=== PATIENT | male | born 1935 | race African-American/Black ===

== ENCOUNTER 2018-08-14 20:16 | Emergency (ER) | payer OTHER ==
--- NOTE | 2018-08-14 21:57 | PDOC ---
History of Present Illness - General Chief Complaint: Tremors Stated Complaint: FELT LIKE HE WAS SHAKING Time Seen by Provider: 08/14/18 20:23 Past History - Past Medical History Allergies/Adverse Reactions: Allergies Allergy/AdvReac Type Severity Reaction Status Date / Time ciprofloxacin [From Cipro] Allergy Verified 08/14/18 20:20 Home Medications: Ambulatory Orders Allopurinol [Zyloprim -] 100 mg PO DAILY 08/14/18 Amlodipine Besylate 10 mg PO DAILY 08/14/18 Furosemide [Lasix] 20 mg PO DAILY 08/14/18 ED Treatment Course - RADIOLOGY Radiology Studies Ordered: Category Date Time Status HEAD CT WITHOUT CONTRAST [CT] Stat CT Scan 08/14/18 20:46 Completed *DC/Admit/Observation/Transfer Diagnosis at time of Disposition: History of tremor - Discharge Dispostion Disposition: HOME Condition at time of disposition: Stable - Referrals Referrals: Chidi Jimenez DO [Staff Physician] - 1 week - Patient Instructions Printed Discharge Instructions: DI for Peripheral Neuropathy Additional Instructions: Continue medication as prescribed Follow-up with neurologist ( group) within 1 week Follow-up with your primary care practitioner; call tomorrow and arrange for follow-up within the next 48 hours Return to ER if you have any persistent tremor/weakness/numbness in arm - Post Discharge Activity
[2018-08-14 22:26] VITALS: BP 187/94; PULSE 80; TEMP 97.8; BMI 22.8
--- NOTE | 2018-08-15 06:32 | PDOC ---
Documentation entered by Jacinta Locke SCRIBE, acting as scribe for Alma Vazquez MD. Alma Vazquez MD: This documentation has been prepared by the Chucky gold Xhesika, SCRIBE, under my direction and personally reviewed by me in its entirety. I confirm that the documentation accurately reflects all work, treatment, procedures, and medical decision making performed by me. History of Present Illness - General Chief Complaint: Tremors Stated Complaint: FELT LIKE HE WAS SHAKING Time Seen by Provider: 08/14/18 20:23 History Source: Patient Exam Limitations: No Limitations - History of Present Illness Initial Comments: 08/14/18 22:24 The patient is a 83 year old male, with a significant past medical history of HTN (compliant with medication) who presents to the emergency department with tremors since this afternoon. The patient states he was sitting down watching tv , fell asleep and when he woke up he felt his R hand trembling for a minute before self resolving. The patient states he went to urgent care and was told to come to the ED for a head CT. The patient denies numbness or pain to his R arm. The patient denies any other extremity problems, vision changes, balance changes, facial drooping or slurred speech. The patient denies chest pain, shortness of breath, headache or dizziness. The patient denies fever, chills, nausea, vomit, diarrhea or constipation. The patient denies dysuria, frequency, urgency or hematuria. Allergies:NKDA Past surgical history:None reported Social history: None reported Past History - Past Medical History Allergies/Adverse Reactions: Allergies Allergy/AdvReac Type Severity Reaction Status Date / Time ciprofloxacin [From Cipro] Allergy Verified 08/14/18 20:20 Home Medications: Ambulatory Orders Allopurinol [Zyloprim -] 100 mg PO DAILY 08/14/18 Amlodipine Besylate 10 mg PO DAILY 08/14/18 Furosemide [Lasix] 20 mg PO DAILY 08/14/18 Review of Systems - Review of Systems Able to Perform ROS?: Yes Comments:: 08/14/18 22:25 GENERAL/CONSTITUTIONAL: No fever or chills. No weakness. HEAD, EYES, EARS, NOSE AND THROAT: No change in vision. No ear pain or discharge. No sore throat. CARDIOVASCULAR: No chest pain or shortness of breath. RESPIRATORY: No cough, wheezing, or hemoptysis. GASTROINTESTINAL: No nausea, vomiting, diarrhea or constipation. GENITOURINARY: No dysuria, frequency, or change in urination. MUSCULOSKELETAL:(+) R hand tremors. No joint or muscle swelling or pain. No neck or back pain. SKIN: No rash NEUROLOGIC: No headache, vertigo, loss of consciousness, or change in strength/ sensation. ENDOCRINE: No increased thirst. No abnormal weight change. HEMATOLOGIC/LYMPHATIC: No anemia, easy bleeding, or history of blood clots. ALLERGIC/IMMUNOLOGIC: No hives or skin allergy. *Physical Exam - Physical Exam Comments: 08/14/18 22:25 GENERAL: Awake, alert, and fully oriented, in no acute distress HEAD: No signs of trauma EYES: PERRLA, EOMI, sclera anicteric, conjunctiva clear ENT: Auricles normal inspection, hearing grossly normal, nares patent, oropharynx clear without exudates. Moist mucosa NECK: Normal ROM, supple, no lymphadenopathy, JVD, or masses LUNGS: Breath sounds equal, clear to auscultation bilaterally. No wheezes, and no crackles HEART: Regular rate and rhythm, normal S1 and S2, no murmurs, rubs or gallops ABDOMEN: Soft, nontender, normoactive bowel sounds. No guarding, no rebound. No masses EXTREMITIES: (+) minimal past pointing on finger to nose with right upper extremity normal on L. (+) rapid alternating movement, normal on both hands. Remainder of neurological exam was normal. Normal range of motion, no edema. No clubbing or cyanosis. No cords, erythema, or tenderness NEUROLOGICAL: Cranial nerves II through XII grossly intact. Normal speech, normal gait Medical Decision Making - Medical Decision Making As noted above, this 83-year-old man with a history of hypertension and was referred here from urgent care where he was seen after a brief episode of right upper extremity tremor, apparently occurring after the patient awakened from a nap on his couch earlier today. He had no other symptoms and tremor resolved completely after a few minutes. Patient has no complaints currently. Exam, as noted above was essentially normal except for very subtle difference in coordination of the right arm as opposed to the left arm. Noncontrast head CT was without evidence of acute pathology Results discussed with the patient. He will continue to take his antihypertensive medication and follow-up with his primary care practitioner. I suggested that he also follow-up with neurology and the patient was eager to do this. Referral information for Dr. Barbara henriquez was given to the patient. He should also return to the emergency room if he develops any persistent unusual motor activity/difficulty with speaking/facial or motor weakness/ balance or gait difficulties. *DC/Admit/Observation/Transfer Diagnosis at time of Disposition: History of tremor - Discharge Dispostion Disposition: HOME Condition at time of disposition: Stable - Referrals Referrals: Chidi Jimenez DO [Staff Physician] - 1 week - Patient Instructions Printed Discharge Instructions: DI for Peripheral Neuropathy Additional Instructions: Continue medication as prescribed Follow-up with neurologist (Dr.Gulati henriquez) within 1 week Follow-up with your primary care practitioner; call tomorrow and arrange for follow-up within the next 48 hours Return to ER if you have any persistent tremor/weakness/numbness in arm - Post Discharge Activity
== END 2018-08-14 22:30 | disposition home or self-care (01) ==
LOC: FER 20:16
DX: R25.1 Tremor, unspecified (principal)
CPT/HCPCS: 70450-TC; 99281-25

== ENCOUNTER 2019-12-15 21:47 | Inpatient (IN) | payer OTHER, BC ==
--- NOTE | 2019-12-15 22:23 | PDOC ---
History of Present Illness - General Chief Complaint: Loss of Appetite Stated Complaint: LOSS OF APPETITE Time Seen by Provider: 12/15/19 22:10 History Source: Patient, Spouse Exam Limitations: No Limitations - History of Present Illness Initial Comments: 12/15/19 22:23 84yM w PMHx HTN presenting w 2wk reduced PO appetite, 15lb weight loss, confusion, generalized weakness. At baseline, pt is AOx3, doesn't need help with activities of daily living per . Pt denies fever, cough, n/v, chest pain, SOB, ABD pain, urinary/bowel mvmt changes. Past History - Medical History Allergies/Adverse Reactions: Allergies Allergy/AdvReac Type Severity Reaction Status Date / Time ciprofloxacin [From Cipro] Allergy Verified 08/14/18 20:20 Home Medications: Ambulatory Orders Allopurinol [Zyloprim -] 100 mg PO DAILY 08/14/18 Amlodipine Besylate 10 mg PO DAILY 08/14/18 Hydrochlorothiazide [Hctz -] 25 mg PO DAILY 12/15/19 Sulfamethoxazole/Trimethoprim [Sulfamethoxazole-Tmp Ds Tablet] 1 each PO BID 12/15/19 Tamsulosin HCl 0.4 mg PO DAILY 12/15/19 COPD: No HTN: Yes Other medical history: gout - Psycho-Social/Smoking History Smoking History: Never smoked Have you smoked in the past 12 months: No - Substance Abuse Hx (Audit-C & DAST Scrn) How often the patient has a drink containing alcohol: Never Score: In Men: 4 or > Positive; In Women: 3 or > Positive: 0 Screen Result (Pos requires Nsg. Audit-10AR): Negative In the last yr the pt used illegal drug/Rx for NonMed reason: No Score: Yes response is considered Positive: 0 Screen Result (Positive result requires Nsg. DAST-10): Negative Review of Systems - Review of Systems Constitutional: Yes: Loss of Appetite, Unintentional Wgt. Loss. No: Chills, Fever HEENTM: No: Eye Pain, Nose Congestion Respiratory: No: Cough, Shortness of Breath Cardiac (ROS): No: Chest Pain, Palpitations ABD/GI: No: Constipated, Diarrhea, Nausea, Vomiting : No: Burning, Dysuria Musculoskeletal: No: Back Pain, Joint Pain Integumentary: No: Bruising, Flushing Neurological: No: Headache, Seizure Psychiatric: No: Anxiety, Depression Endocrine: No: Intolerance to Cold, Intolerance to Heat Hematologic/Lymphatic: No: Anemia, Blood Clots *Physical Exam - Vital Signs Last Vital Signs Temp Pulse Resp BP Pulse Ox 98.9 F 109 H 19 147/66 99 12/15/19 21:51 12/15/19 21:51 12/15/19 21:51 12/15/19 21:51 12/15/19 21:51 - Physical Exam General Appearance: Yes: Nourished, Appropriately Dressed. No: Apparent Distress HEENT: positive: EOMI, TABITHA, Normal Voice, Hearing Grossly Normal. negative: Scleral Icterus (R), Scleral Icterus (L) Respiratory/Chest: positive: Lungs Clear, Normal Breath Sounds. negative: Chest Tender, Respiratory Distress, Crackles, Rales, Rhonchi, Stridor, Wheezing Cardiovascular: positive: Regular Rhythm, Regular Rate, S1, S2, Systolic Murmur Gastrointestinal/Abdominal: positive: Normal Bowel Sounds, Soft, Distended (mild). negative: Tender, Guarding, Rebound Musculoskeletal: negative: CVA Tenderness (R), CVA Tenderness (L) Extremity: positive: Delayed Capillary Refill. negative: Pedal Edema Integumentary: positive: Normal Color, Dry, Warm. 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 negative: Fully Oriented (AOx1 not to time or place), Facial Droop, Numbness ED Treatment Course - LABORATORY CBC & Chemistry Diagram: 12/15/19 22:50 12/15/19 22:50 Medical Decision Making - Medical Decision Making 12/15/19 22:58 EKG - sinus tachy w PACs, HR 103, QTc 476, no ST changes CXR - clear lung cohn Head CT - limited exam excludes brain near vertex, no acute hemorrhage/infarct/mass, mild volume loss WBC 14 w L shift, Cr 6.4, ALT 160, AST 100 --- 84yM w PMHx HTN presenting w 2wk reduced PO appetite, 15lb weight loss, confusion, generalized weakness. PNA vs UTI vs atypical ACS vs metabolic. Low concern for CVA (no focal neuro deficits) vs PNA (clear lungs) Has UTI, prerenal KARLO w BUN 106/Cr 6.4 w normal K, no ST changes No acute hemorrhage/infarct/mass on CT. Vitals normal, not in distress, abd non tender Given 2L fluids, rocephin Admitted m/s hospitalist for KARLO, dehydration requiring IV fluids, UTI, AMS PCP - Mónica Lee CONTINGENTS SUPERVISOR Discharge - Discharge Information Problems reviewed: Yes Clinical Impression/Diagnosis: KARLO (acute kidney injury), Dehydration UTI (urinary tract infection) Qualifiers: Urinary tract infection type: acute cystitis Hematuria presence: without hematuria Qualified Code(s): N30.00 - Acute cystitis without hematuria AMS (altered mental status) Qualifiers: Altered mental status type: disorientation Qualified Code(s): R41.0 - Disorientation, unspecified Condition: Stable - Follow up/Referral - Patient Discharge Instructions - Post Discharge Activity
[2019-12-15] MEDS ORDERED: SODIUM CHLORIDE 0.9% 500 ML INFUS.BAG IV ONE (22:48)
[2019-12-15 23:01] LABS: BASO % 0.5 % (0-2.0); EOS % 0.3 % (0-4.5); HEMATOCRIT 37.7 % (35.4-49); HEMOGLOBIN 12.7 GM/dL (11.7-16.9); LYMPH % 3.7 % (8-40); MCH 33.4 pg (25.7-33.7); MCHC 33.8 g/dl (32.0-35.9); MEAN CELL VOLUME 98.9 fl (80-96); MEAN PLT VOLUME 7.6 fl (7.5-11.1); MONO % 9.6 % (3.8-10.2); NEUT % 85.9 % (42.8-82.8); PLATELET COUNT 534 K/MM3 (134-434); RBC 3.81 M/mm3 (4.00-5.60); RDW 13.7 % (11.9-15.9); WHITE BLOOD COUNT 14.6 K/mm3 (4.0-10.0)
[2019-12-15 23:38] LABS: ALBUMIN 3.2 g/dl (3.4-5.0); BILIRUBIN,TOTAL 0.8 mg/dL (0.2-1); CALCIUM 8.9 mg/dL (8.5-10.1); CREATININE 6.4 mg/dL (0.55-1.3); MAGNESIUM 2.7 mg/dL (1.8-2.4); PHOSPHOROUS 3.5 mg/dL (2.5-4.9); POTASSIUM 3.9 mmol/L (3.5-5.1); TOT PROT 8.6 g/dl (6.4-8.2)
[2019-12-15 23:40] LABS: BLOOD UREA NITROGEN 106.9 mg/dL (7-18)
[2019-12-16] MEDS ORDERED: LACTATED RINGERS SOLUTION 1000 ML INFUS.BAG IV ONE (00:43)
[2019-12-16 01:21] LABS: EPI CELLS 4 /uL (0-25.1); HYALINE CASTS 1 /uL (0-3.1); PH,URINE 5.5 (5.0-8.0); URINE APPEARANCE TURBID; URINE BACTERIA 3845 /uL (0-1359); URINE BILIRUBIN NEGATIVE (NEGATIVE); URINE COLOR YELLOW; URINE GLUCOSE (UA) NEGATIVE (NEGATIVE); URINE KETONE NEGATIVE (NEGATIVE); URINE LEUK ESTERASE 3+ (NEGATIVE); URINE NITRITE POSITIVE (NEGATIVE); URINE PROTEIN TRACE (NEGATIVE); URINE RBC 81 /uL (0-23.9); URINE UROBILINOGEN 0.2 mg/dL (0.2-1.0); URINE WBC 9551 /uL (0-25.8)
[2019-12-16] MEDS ORDERED: CEFTRIAXONE 1 GM in DEXTROSE 5%-WATER - 100 ML IVPB ONE (01:49)
[2019-12-16] MEDS ORDERED: CEFTRIAXONE 1 GM/50 ML BAG ONE (03:21)
--- NOTE | 2019-12-16 03:25 | PDOC ---
*Physical Exam - Vital Signs Last Vital Signs Temp Pulse Resp BP Pulse Ox 98.9 F 109 H 19 147/66 99 12/15/19 21:51 12/15/19 21:51 12/15/19 21:51 12/15/19 21:51 12/15/19 21:51 ED Treatment Course - LABORATORY CBC & Chemistry Diagram: 12/26/19 07:20 12/26/19 07:20 - ADDITIONAL ORDERS Additional order review: Laboratory Results 12/16/19 12/15/19 00:45 22:50 Sodium 132 L Potassium 3.9 Chloride 98 Carbon Dioxide 19 L Anion Gap 15 BUN 106.9 H* Creatinine 6.4 H Est GFR (CKD-EPI)AfAm 8.39 Est GFR (CKD-EPI)NonAf 7.24 Random Glucose 120 H Calcium 8.9 Phosphorus 3.5 Magnesium 2.7 H Total Bilirubin 0.8 AST 108 H ALT 161 H Alkaline Phosphatase 89 Troponin I 0.03 Total Protein 8.6 H Albumin 3.2 L TSH 2.63 Urine Color Yellow Urine Appearance Turbid Urine pH 5.5 Ur Specific Hamer 1.014 Urine Protein Trace Urine Glucose (UA) Negative Urine Ketones Negative Urine Blood 2+ H Urine Nitrite Positive H Urine Bilirubin Negative Urine Urobilinogen 0.2 Ur Leukocyte Esterase 3+ H Urine WBC (Auto) 9551 Urine RBC (Auto) 81 Urine Casts (Auto) 1 U Epithel Cells (Auto) 4 Urine Bacteria (Auto) 3845 12/15/19 22:50 RBC 3.81 L MCV 98.9 H MCHC 33.8 RDW 13.7 MPV 7.6 Neutrophils % 85.9 H Lymphocytes % 3.7 L Monocytes % 9.6 Eosinophils % 0.3 Basophils % 0.5 - Medications Given in the ED: ED Medications Discontinued Medications Generic Name Dose Route Start Last Admin Trade Name Freq PRN Reason Stop Dose Admin Lactated Ringer's 1,000 ml 12/16/19 00:43 12/16/19 01:32 Lactated Ringers Solution IV 12/16/19 00:44 1,000 ml ONCE ONE Administration Sodium Chloride 1,000 ml 12/15/19 22:48 12/15/19 23:28 Normal Saline - IV 12/15/19 22:49 1,000 ml ONCE ONE Administration Medical Decision Making - Medical Decision Making 12/16/19 03:24 Patient Name: JR DEVINE THIS IS A PRELIMINARY REPORT DATE OF SERVICE: 2019-12-16 02:02:37 IMAGES: 296 EXAM: HEAD CT WITHOUT CONTRAST HISTORY: 84-year-old male 2 weeks of confusion weakness assess for a cerebrovascular accident COMPARISON: None. FINDINGS: Limited nondiagnostic exam excludes the brain near the vertex. No acute intracranial hemorrhage mass effect or midline shift on the images within the [id number]. The ventricles sulci and basilar cisterns are mildly prominent consistent with mild central volume loss. Mild nonspecific periventricular predominant low density throughout the deep white matter is most likely due to mild small vessel ischemic white matter disease. Mild mineralization of the bilateral basal ganglia. Cannot exclude an acute stroke. Calcified arteriosclerosis of the cavernous carotids noted. The sinuses and mastoid air cells are clear within the [id number]. The calvarium is intact. IMPRESSION Limited nondiagnostic exam excludes the brain near the vertex. If clinically indicated routine outpatient CT head without motion artifact may be needed. No acute intracranial hemorrhage mass effect or midline shift on the images within the [id number]. The ventricles sulci and basilar cisterns are mildly prominent consistent with mild central volume loss. Mild nonspecific periventricular predominant low density throughout the deep white matter is most likely due to mild small vessel ischemic white matter disease. Mild mineraliza tion of the bilateral basal ganglia. Cannot exclude an acute stroke. If there is a clinical concern for an acute stroke then follow-up with CT angiography of the head with IV contrast may be needed. Calcified arteriosclerosis of the cavernous carotids noted. Discharge - Discharge Information Problems reviewed: Yes Clinical Impression/Diagnosis: KARLO (acute kidney injury), Dehydration UTI (urinary tract infection) Qualifiers: Urinary tract infection type: acute cystitis Hematuria presence: without he maturia Qualified Code(s): N30.00 - Acute cystitis without hematuria AMS (altered mental status) Qualifiers: Altered mental status type: disorientation Qualified Code(s): R41.0 - Disorientation, unspecified Condition: Stable - Follow up/Referral - Patient Discharge Instructions - Post Discharge Activity
--- NOTE | 2019-12-16 04:39 | PN ---
Teaching Attending Note Name of Resident: Kira Sotelo ATTENDING PHYSICIAN STATEMENT I saw and evaluated the patient. I reviewed the resident's note and discussed the case with the resident. I agree with the resident's findings and plan as documented. SUBJECTIVE: Patient is an 84 year old man with a PMH of Gout and Hypertension brought in by his to the ER for 2 weeks of worsening altered mental status, confusion, decreased PO intake, 15 lbs weight loss and difficulty ambulating. His provided most of the information because of his altered mentation. Patient offers no specific complaints. says that at baseline, patient is alert and oriented x3, and doesn't need help with activities of daily living per . Patient went to an Urgent care center 9 days ago for urinary frequency/urgency and was prescribed Bactrim DS bid and Flomax. There is no reported chest pain, shortness of breath, abdominal pain, headache, palpitations, fever, chills, nausea, vomiting, diarrhea, constipation, dysuria, frequency, urgency, melena, hematochezia or hematuria. No reported history of alcohol, tobacco or illicit drug use. No sick contacts or recent travels. Family history is unremarkable. OBJECTIVE: Alert Vital Signs Period Temp Pulse Resp BP Sys/Odell Pulse Ox Last 24 Hr 98.9 F 109 19 147/66 99 HEENT: No Jaundice, eye redness or discharge, PERRLA, EOMI. Normocephalic, atraumatic. External ears are normal and hearing is grossly intact. No nasal discharge. Neck: Supple, nontender. No palpable adenopathy or thyromegaly. No JVD Chest: Good effort. Clear to auscultation and percussion. Heart: Regular. No S3, rub or murmur Abdomen: Not distended, soft, nontender and no HSM. No rebound or guarding. Nor mal bowel sounds. Ext: Peripheral pulses intact. No leg edema. Skin: Warm and dry. No petechiae, rash or ecchymosis. Neuro: Alert. Oriented to person. CN 2-12 grossly intact. Sensation grossly intact in all four extremities and DTR are symmetric. Psych: Appropriate mood and affect. Good insight. Home Medications Medication Instructions Recorded Allopurinol [Zyloprim -] 100 mg PO DAILY 08/14/18 Amlodipine Besylate 10 mg PO DAILY 08/14/18 Hydrochlorothiazide [Hctz -] 25 mg PO DAILY 12/15/19 Sulfamethoxazole/Trimethoprim 1 each PO BID 12/15/19 [Sulfamethoxazole-Tmp Ds Tablet] Tamsulosin HCl 0.4 mg PO DAILY 12/15/19 Abnormal Lab Results 12/15/19 12/15/19 12/16/19 22:50 22:50 00:45 WBC 14.6 H RBC 3.81 L MCV 98.9 H Plt Count 534 H Absolute Neuts (auto) 12.6 H Neutrophils % 85.9 H Lymphocytes % 3.7 L Sodium 132 L Carbon Dioxide 19 L BUN 106.9 H* Creatinine 6.4 H Random Glucose 120 H Magnesium 2.7 H AST 108 H ALT 161 H Total Protein 8.6 H Albumin 3.2 L Urine Blood 2+ H Urine Nitrite Positive H Ur Leukocyte Esterase 3+ H Current Medications Generic Name Dose Route Start Last Admin Trade Name Freq PRN Reason Stop Dose Admin Amlodipine Besylate 10 mg 12/16/19 10:00 Norvasc - PO DAILY [facility] Heparin Sodium (Porcine) 5,000 unit 12/16/19 06:00 Heparin - SQ TID [facility] Hydrochlorothiazide 25 mg 12/16/19 10:00 Hctz - PO DAILY [facility] Sodium Chloride 1,000 mls @ 75 mls/hr 12/16/19 05:30 12/16/19 06:01 Normal Saline - IV 75 mls/hr ASDIR [facility] Administration Ceftriaxone Sodium 2,000 mg/ 50 mls @ 100 mls/hr 12/17/19 05:00 Dextrose IVPB DAILY [facility] Tamsulosin HCl 0.4 mg 12/16/19 08:30 Flomax - PO DAILY@0830 [facility] ASSESSMENT AND PLAN: 1. Sepsis due to UTI/Toxic metabolic encephalopathy - Altered mentation likely due to toxic metabolic encephalopathy caused by UTI. No evidence of acute intracranial pathology on noncontrast head CT scan though it is reported as suboptimal study. CXR shows calcified aortic knob with no evidence of acute lung disease. EKG shows sinus tachycardia at 103/minute, PACs, LAD and QTc [address]-T wave changes. Initial troponin is negative. Will avoid drugs that may prolong QTc. Transaminitis may be due to sepsis - will get upper abdominal sonogram and trend. Sepsis workup done. Will continue IV Ceftriaxone, keep him NPO, give IV NS, get carotid doppler, brain MRI if AMS persists, do speech and swallow evaluation, neurochecks and implement fall/aspiration/seizure precautions. Consult ID/Neurology. Viral testing for COVID-19 ordered and patient placed on airborne, droplet and contact isolation. Hyponatremia likely partly due to hyperglycemia and ?KARLO. Will limit free water intake and correct hyperglycemia. Will continue comprehensive care for all of patients comorbid conditions. 2. KARLO? May be due to Bactrim toxicity. Will get kidney/bladder sonogram stat, uric acid level, phosphate, PSA, hydrate gently, monitor urine output and con sult Nephrology. Avoid nephrotoxic agents such as NSAIDS, aminoglycosides, contrast dyes and certain Alternative medicine products. 3. Hypoalbuminemia - Possibly due to combined effects of malnutrition and inflammation associated with comorbid conditions. Will ensure adequate dietary protein intake and also consult youth officer. Urinalysis pending. 4. Hypertension Will restart suitable outpatient antihypertensive drugs when clinically appropriate. Subsequently, will revise regimen to ensure [id number] excellent BP control. Patient counseled on the injurious effects of uncontrolled hypertension. Nonpharmacologic measures to control hypertension like weight loss, salt restriction and exercise stressed. Importance of adherence to treatment regimen and attainment of normotension emphasized. 5. DVT prophylaxis - Heparin 5000u sq tid. 6. Advance directives - Full code.
--- NOTE | 2019-12-16 05:26 | HP ---
CHIEF COMPLAINT: Constipation and altered mental status of 2 weeks Historian: PCP: Mónica Lee HISTORY OF PRESENT ILLNESS: 84 Year old Male with a history of hypertension brought in by for 2 weeks of worsening altered mental status, confusion, decreased PO intake, 15 lbs we ight loss, difficulty ambulating. His is the primary historian who denies nausea, vomiting, chest pain. Confusion was of gradual onset. The believes he seems to be getting better. There is associated urinary frequency, urgency and reduced apppetite and 15 Ibs unexplained weight losss but no dysuria, hematuria, fever, chills, nausea, vomiting or diarrhea. No Chest pain, sob, wheezing, LOC, seizures, hematemesis, hematochezia or melena stool. Patient was treated at urgent care 9 days ago for urinary frequency and urgency with bactrim and flomax. ER course was notable for: (1)N/S (2)Heparin (3) Recent Travel:None PAST SURGICAL HISTORY: Social History: Smoking:None Alcohol:None Drugs: None Allergies: ciprofloxacin. None to food or latex HOME MEDICATIONS: Home Medications Medication Instructions Recorded Allopurinol [Zyloprim -] 100 mg PO DAILY 08/14/18 Amlodipine Besylate 10 mg PO DAILY 08/14/18 Hydrochlorothiazide [Hctz -] 25 mg PO DAILY 12/15/19 Tamsulosin HCl 0.4 mg PO DAILY 12/15/19 REVIEW OF SYSTEMS Negative except as above Vital Signs - 24 hr 12/15/19 21:51 Temperature 98.9 F Pulse Rate 109 H Respiratory 19 Rate Blood Pressure 147/66 O2 Sat by Pulse 99 Oximetry (%) PHYSICAL EXAMINATION GENERAL: Awake, alert, and Ox1, in no acute distress. HEAD: Normal with no signs of trauma. EYES: Sclera anicteric, conjunctiva clear. No lid lag. NECK: Supple without lymphadenopathy, JVD, or masses. LUNGS: Breath sounds equal, clear to auscultation bilaterally. No wheezes, and no crackles. No accessory muscle use. HEART: Regular rate and rhythm, normal S1 and S2 without murmur, rub or gallop. ABDOMEN: Soft, nontender, not distended, normoactive bowel sounds, no guarding, no rebound, no masses. No hepatomegaly or splenomegaly. STAR: Normal anal tone, no tenderness or prostatic enlargement MUSCULOSKELETAL: Normal range of motion at all joints. No bony deformities or tenderness. No CVA tenderness. UPPER EXTREMITIES: 2+ pulses, warm, well-perfused. No cyanosis. No clubbing. No peripheral edema. LOWER EXTREMITIES: 2+ pulses, warm, well-perfused. No calf tenderness. No peripheral edema. NEUROLOGICAL: Alert, ox1 PSYCHIATRIC: Cooperative. Good eye contact. Appropriate mood and affect. SKIN: Warm, dry Laboratory Results - last 24 hr 12/15/19 12/15/19 12/16/19 22:50 22:50 00:45 WBC 14.6 H RBC 3.81 L Hgb 12.7 Hct 37.7 MCV 98.9 H MCH 33.4 MCHC 33.8 RDW 13.7 Plt Count 534 H MPV 7.6 Absolute Neuts (auto) 12.6 H Neutrophils % 85.9 H Lymphocytes % 3.7 L Monocytes % 9.6 Eosinophils % 0.3 Basophils % 0.5 Nucleated RBC % 0 Sodium 132 L Potassium 3.9 Chloride 98 Carbon Dioxide 19 L Anion Gap 15 BUN 106.9 H* Creatinine 6.4 H Est GFR (CKD-EPI)AfAm 8.39 Est GFR (CKD-EPI)NonAf 7.24 Random Glucose 120 H Calcium 8.9 Phosphorus 3.5 Magnesium 2.7 H Total Bilirubin 0.8 AST 108 H ALT 161 H Alkaline Phosphatase 89 Troponin I 0.03 Total Protein 8.6 H Albumin 3.2 L TSH 2.63 Urine Color Yellow Urine Appearance Turbid Urine pH 5.5 Ur Specific [place] 1.014 Urine Protein Trace Urine Glucose (UA) Negative Urine Ketones Negative Urine Blood 2+ H Urine Nitrite Positive H Urine Bilirubin Negative Urine Urobilinogen 0.2 Ur Leukocyte Esterase 3+ H Urine WBC (Auto) 9551 Urine RBC (Auto) 81 Urine Casts (Auto) 1 U Epithel Cells (Auto) 4 Urine Bacteria (Auto) 3845 ASSESSMENT/PLAN: 84 Year old Male with a history of hypertension brought in by for 2 weeks of worsening altered mental status, confusion, decreased PO intake, 15 lbs weight loss, difficulty ambulating x 2 weeks #SEPSIS 2/2 TO ACUTE COMPLICATED CYSTITIS: -UA is suggestive of UTI -Hx of urinary frequency and urgency + -Altered mentation likely due to toxic metabolic encephalopathy caused by UTI. -No evidence of acute intracranial pathology on noncontrast head CT scan though it is reported as suboptimal study. -CXR shows calcified aortic knob with no evidence of acute lung disease. -EKG shows sinus tachycardia at 103/minute, PACs, LAD and QTc [address]-T wave changes. -Initial troponin is negative. -Avoid QTc prolonging meds. #TRANSAMINITIS: -Transaminitis likely due to sepsis - will get upper abdominal sonogram and trend. -Sepsis workup done -Continue IV Ceftriaxone, keep him NPO -IV N/S -AM team to consider Carotid doppler, brain MRI if AMS persists -Speech and swallow evaluation -Neurochecks and implement fall/aspiration/seizure precautions. -Consult ID/Neurology. -Viral testing for COVID-19 ordered and patient placed on airborne, droplet and contact isolation. -Hyponatremia likely partly due to hyperglycemia and ?KARLO. -Limit free water intake and correct hyperglycemia. #KARLO: -May be 2/2 Bactrim toxicity. Bactrim was given 9days ago -Kidney/bladder sonogram stat -Uric acid level, phosphate, PSA -Gentle hydration, monitor urine output and consult Nephrology. -Avoid nephrotoxic agents such as NSAIDS, aminoglycosides, contrast dyes and certain Alternative medicine products. #HYPOALBUMINEMIA: -Likely due to combined effects of malnutrition and inflammation associated with comorbid conditions. -Educate patient on adequate dietary protein intake and also consult customer consulting manager. -UA result pending. #HTN: -Restart antihypertensive meds when clinically appropraite -Educate patient on importance of medication adherence and optimal BP control and complications of uncontrolled HTN - Enlighten patient on Nonpharmacologic measures to control hypertension like weight loss, salt restriction and exercise stressed. #FEN: -IV N/S -Continue to monitor and replete electrolytes prn -NPO #DISPOSITION: -DVT prophylaxis - Heparin 5000u sq tid. -Advance directives - Full code. Family Medical History Family History: Unremarkable Visit type - Medication Review Med list reviewed for High Risk Meds patients 65 and older: Yes - Emergency Visit Emergency Visit: Yes ED Registration Date: 12/16/19 Care time: The patient presented to the Emergency Department on the above date and was hospitalized for further evaluation of their emergent condition. - New Patient This patient is new to me today: Yes Date on this admission: 12/16/19 - Critical Care Critical Care patient: No ATTENDING PHYSICIAN STATEMENT I saw and evaluated the patient. I reviewed the resident's note and discussed the case with the resident. I agree with the resident's findings and plan as documented. SUBJECTIVE: OBJECTIVE: ASSESSMENT AND PLAN:
[2019-12-16] MEDS ORDERED: SODIUM CHLORIDE 1,000 ML IV SCH (05:30)
[2019-12-16] MEDS ORDERED: HEPARIN NA (PORCINE) 5,000 UNITS/ML 1ML VIAL ONE (06:20)
[2019-12-16] MEDS: HEPARIN NA (PORCINE) 5,000 UNITS/ML 1ML VIAL SQ SCH ×3 (06:21→21:33)
--- NOTE | 2019-12-16 08:09 | CON.NEURO ---
Consult Consult Specialty:: [facility] Reason for Consultation:: ana - History of Present Illness History of Present Illness: 84-year-old right-handed man with multiple medical problem comes into the emergency room by his with a gradual onset of increasing difficulty with by mouth fluid intake weakness confusion altered mental status. No report of any recent travel patient came into the emergency room patient with a high white count patient was seen this morning in the emergency room no report of any recent travel no fever Covid 19 testing is pending - History Source History Provided By: Medical Record Limitations to Obtaining History: Clinical Condition - Alcohol/Substance Use Hx Alcohol Use: No - Smoking History Smoking history: Never smoked Have you smoked in the past 12 months: No Home Medications - Allergies Allergies/Adverse Reactions: Allergies Allergy/AdvReac Type Severity Reaction Status Date / Time ciprofloxacin [From Cipro] Allergy Verified 08/14/18 20:20 - Home Medications Home Medications: Ambulatory Orders Allopurinol [Zyloprim -] 100 mg PO DAILY 08/14/18 Amlodipine Besylate 10 mg PO DAILY 08/14/18 Hydrochlorothiazide [Hctz -] 25 mg PO DAILY 12/15/19 Tamsulosin HCl 0.4 mg PO DAILY 12/15/19 Family Medical History Family History: Unable to Obtain Review of Systems Unable to obtain ROS, reason: unable to obtain Physical Exam-Neuro Vital Signs: Vital Signs Temperature 98.7 F 12/16/19 06:00 Pulse Rate 89 12/16/19 06:00 Respiratory Rate 16 12/16/19 06:00 Blood Pressure 125/92 12/16/19 06:00 O2 Sat by Pulse Oximetry (%) 100 12/16/19 06:00 Labs: CBC, BMP 12/15/19 22:50 12/15/19 22:50 - Neuro Exam Level Of Consciousness: Yes: Oriented to Person Eyes: Yes: PERRLA Speech: Garbled Dominant Hand: Right Cranial Nerves II-XII Intact: Yes Gag: Present DTR's: 0 Left Bicep, 0 Right Bicep, 0 Left Tricep, 0 Right Tricep Response to light touch: Normal Response to pain prick: Normal Response to temperature: Normal Motor Strength: 3/5: Left Arm, Right Arm, Left Leg, Right Leg Imaging - Results Cat Scan: Image Reviewed Problem List - Problems (1) AMS (altered mental status) Code(s): R41.82 - ALTERED MENTAL STATUS, UNSPECIFIED Qualifiers: Altered mental status type: disorientation Qualified Code(s): R41.0 - Disorientation, unspecified Assessment/Plan questionable source toxic metabolic encephalopathy Cannot rule out viral encephalitis. 1. MRI of the brain with no contrast if there is no medical contraindication. 2. Sepsis workup. 3. ID consult. 4. If there is no source or proceed with the spinal tap. 5. DVT prophylaxis. Thank you very much for allowing me to be part of this patient neurological care. Sonia Gomes M.D. [phone]
[2019-12-16] MEDS ORDERED: TAMSULOSIN HCL 0.4 MG CAP ONE (09:13)
[2019-12-16] MEDS: TAMSULOSIN HCL 0.4 MG CAP PO SCH (09:20)
[2019-12-16] MEDS ORDERED: HYDROCHLOROTHIAZIDE 25 MG TABLET (FP) PO SCH (10:00)
[2019-12-16] MEDS ORDERED: ALLOPURINOL 100 MG TABLET (FP) PO SCH (10:00)
--- NOTE | 2019-12-16 10:26 | CONSULT ---
Admitting History and Physical - Admission History of Present Illness: Per EMR- 84 Year old Male with a history of hypertension brought in by for 2 weeks of worsening altered mental status, confusion, decreased PO intake, 15 lbs weight loss, difficulty ambulating. Selected Entries 12/16/19 12/16/19 12/16/19 01:30 06:00 09:30 Temperature 98.6 F 98.7 F Pulse Rate [ 77 89 90 Right Radial] Blood Pressure 122/89 125/92 154/79 [Left Arm] O2 Sat by Pulse 100 100 100 Oximetry (%) Oxygen Delivery Room Air Room Air Room Air Method Laboratory Tests 12/15/19 12/15/19 22:50 22:50 WBC 14.6 H BUN 106.9 H* Urine in the bladder/ urinary retention NPO Per neurology-questionable source toxic metabolic encephalopathy Cannot rule out viral encephalitis. 1. MRI of the brain with no contrast if there is no medical contraindication. 2. Sepsis workup. 3. ID consult. 4. If there is no source or proceed with the spinal tap. 5. DVT prophylaxis. Pt seen bedside, rambling a little, but, he appropriately said he came up to his room recently and was in the hospital. After assessing his swallow and interviewing him for a while, I told him I would need to further work him up once they obtained the Covid results. He immediately looked for his mask. History Source: Medical Record Limitations to Obtaining History: Clinical Condition - Smoking History Smoking history: Never smoked Have you smoked in the past 12 months: No - Alcohol/Substance Use Hx Alcohol Use: No History - Admission Reason For Visit: ACUTE KIDNEY INJURY, URINARY TRACT INFECTION, - Diagnostics X-ray: Report Reviewed CT Scan: Report Reviewed - General Mental Status: Awake and Alert, Vague, Intermittently Confused Attention: Intact Ability to Follow Directions: Fair Head/Neck Control: Good - Hearing Hearing: Functional Speech Evaluation - Communication Communication: Yes: Simple Responses - Speech Production Intelligibility: Yes: WNL - Speech Characteristics Voice Loudness: Normal Voice Pitch: Yes: Normal Voice Phonatory-based Quality: Yes: Normal Speech Clarity: < 100% Nasal Resonance: Normal Articulation: Yes: Precise Rate of Speech: Intact - Language/Auditory Comprehension Follows: Yes: 1 Stage Simple Commands Observation: Able to respond to yes/no queries: Yes, Yes/No Confusion: No, Comprehends Conversational Speech: Yes - Language/Verbal Expression Aphasia: Yes: Anomia (gropes for words and responses) Functional Communication Status: Yes: Mildly Impaired, Moderately Impaired - Swallow Evaluation/Bedside Assessment Current Nutritional Intake: NPO Oral Secretions: Yes: WFL Facial Symmetry at Rest: Symmetrical Facial Symmetry on Retraction: Symmetrical Against Resistance Opening: Normal Against Resistance Closing: Normal Pucker Lips: Normal Smile: Normal Lingual Movement: Normal, Symmetric Lingual Speed of Movement: Normal Lingual Movement Strgth Against Opposition: Normal Lingual Movement Characteristics: Normal Velopharyngeal Movement: Normal Laryngeal Elevation: WFL Laryngeal Movement: Able to Palpate Rate of Intake: WFL Bolus Size: WFL Labial Seal: WFL Chewing: Impaired (mildly labored.) Oral Prep Time: WFL A-P Transit: WFL Pocketing: None Timing of Swallow: WFL Coughing/Throat Clear: No Change in Voice: No Recommendations - Speech Evaluation, Impression/Plan Impression: Verbal, anomia, somewha oriented and aware with intermittent confusion/rambles. - Disposition Discharge to: To be Determined - Dysphagia Impressions/Plan Dysphagia Impressions: Mild Impairment *Silent aspiration: cannot be R/O at bedside Dysphagia Treatment Plan: Small Bites, Chin Tuck/Down, Trial Feedings, Facilitative Feeding, Safe Rate, 1/2 tsp. at a time, Elevate HOB during feed - Recommendations Diet Consistency: Regular (soft, easy to chew) Medication Administration: Whole with water Liquids: Thin Liquids Supplement: Ensure
[2019-12-16] MEDS: amLODIPine BESYLATE 10 MG TABLET (FP) PO SCH (11:45)
[2019-12-16 12:20] LABS: BASO % 0.2 % (0-2.0); EOS % 0.2 % (0-4.5); HEMATOCRIT 37.8 % (35.4-49); HEMOGLOBIN 12.5 GM/dL (11.7-16.9); LYMPH % 4.6 % (8-40); MCHC 33.1 g/dl (32.0-35.9); MEAN CELL VOLUME 99.7 fl (80-96); MEAN PLT VOLUME 7.9 fl (7.5-11.1); MONO % 8.6 % (3.8-10.2); NEUT % 86.4 % (42.8-82.8); PLATELET COUNT 484 K/MM3 (134-434); RBC 3.79 M/mm3 (4.00-5.60); RDW 13.3 % (11.9-15.9); WHITE BLOOD COUNT 11.4 K/mm3 (4.0-10.0)
[2019-12-16 12:51] LABS: ALBUMIN 2.9 g/dl (3.4-5.0); BILIRUBIN,TOTAL 0.6 mg/dL (0.2-1); BLOOD UREA NITROGEN 87.5 mg/dL (7-18); CALCIUM 9.1 mg/dL (8.5-10.1); CREATININE 5.3 mg/dL (0.55-1.3); POTASSIUM 3.7 mmol/L (3.5-5.1); URIC ACID 10.5 mg/dL (2.6-7.2)
[2019-12-16 14:47] VITALS: BMI 19.4
--- NOTE | 2019-12-16 15:18 | PN ---
Teaching Attending Note Name of Resident: Yusra Dominguez ATTENDING PHYSICIAN STATEMENT I saw and evaluated the patient. I reviewed the resident's note and discussed the case with the resident. I agree with the resident's findings and plan as documented. SUBJECTIVE: 84yo M with h/o gout and HTN who presented originally from home due to altered mentation found to have pyelonephritis on UA. Pt had failure of Bactrim DS BID outpatient. Pt was admitted to /S and started on IV ABX and noted to have acute kidney injury and transaminitis. Patient today is mildly confused still. At baseline per he is alert and oriented x3 with independence with his ADLs. Pt responds to name and will have to be prompted for question response regarding present condition. Of note, pt's endorsed decreased PO intake and weight loss around 15lbs. OBJECTIVE: Vital Signs Temperature 98.7 F 12/16/19 06:00 Pulse Rate 90 12/16/19 09:30 Respiratory Rate 20 12/16/19 09:30 Blood Pressure 154/79 12/16/19 09:30 O2 Sat by Pulse Oximetry (%) 97 12/16/19 14:52 PE: Gen: NAD, awake, alert, confused but oriented to self. can be reoriented to place HEENT: NC/At, JUANA, MMM Neck: No JVD LUNG: CTA b/l w/o wheezes or rhonchi CARD: RRR no murmurs appreciated ABD: Soft, minimal tenderness lower quadrants, nondistendend, no guarding, no rebound, hypoactive BS : Goldstein with clear yellow urine noted Neuro: Difficult to ascertain due to condition, strength overall symmetrical with normal muscular tone with active movement of limbs. Reflexes 2/4. Downward babinski EXT: No edema appreciated Active Medications Amlodipine Besylate (Norvasc -) 10 mg PO DAILY [facility] Last Admin: 12/16/19 11:45 Dose: 10 mg Documented by: Heparin Sodium (Porcine) (Heparin -) 5,000 unit SQ TID [facility] Last Admin: 12/16/19 14:39 Dose: 5,000 unit Documented by: Sodium Chloride (Normal Saline -) 1,000 mls @ 75 mls/hr IV ASDIR [facility] Last Admin: 12/16/19 06:01 Dose: 75 mls/hr Documented by: Ceftriaxone Sodium 2 gm/ (Dextrose) 100 mls @ 100 mls/hr IVPB DAILY [facility] Tamsulosin HCl (Flomax -) 0.4 mg PO DAILY@0830 [facility] Last Admin: 12/16/19 09:20 Dose: 0.4 mg Documented by: ASSESSMENT AND PLAN: Acute metabolic encephalopathy 2/2 pyelonephritis History of HTN Pancreatic Head mass Possible silent aspiration vs. dysphagia related to current condition --CT A/P noted --Maintain goldstein and monitor urine output --continue Rocephin 2gm daily --If no improvement within 24-48hrs may need to escalate ABX therapy and possible ID consult --Continue Flomax for now --IVF hydration NS@75cc/hr --KARLO likely related to above; FeNa likely influenced due to HCTZ on home medications (now reconciled) --Given weight loss with anorexia and CT findings may need MRI for evaluation of pancreas mass to r/o pancreatic Ca --Awaiting tumor markers (send-outs) --Continue Norvasc 10mg qdaily for BP controll --Appreciate neuro and speech consultations --Will await COVID PCR swab FEN: Fluids: Gentle hyration Electrolyte abnormalities: none Nutrition: Soft diet when tolerated PPX: DVT - Heparin SQ TID dispo: continue M/S Pilo Diop, DO - IM
--- NOTE | 2019-12-16 16:44 | CONSULT ---
Consult Consult Specialty:: Nephrology Reason for Consultation:: KARLO - History of Present Illness Chief Complaint: decreased po intake and weight loss History of Present Illness: Pt is an 84 year old male with pmhx of htn who presented for altered mental s tatus and decreased po intake. He has also had a 15 pound weight loss. He was found to be in KARLO and I was called to evaluate him. He denies shortness of breath or palpitations. he is confused. He has had urinary frequency and urgency. He denies history of ckd. He is a poor historian. He denies nsaid use regularly but he does use them at times. He was found to have urinary retention. - History Source History Provided By: Patient - Past Medical History Cardio/Vascular: Yes: HTN Rheumatology: Yes: Gout - Alcohol/Substance Use Hx Alcohol Use: No - Smoking History Smoking history: Never smoked Have you smoked in the past 12 months: No Home Medications - Allergies Allergies/Adverse Reactions: Allergies Allergy/AdvReac Type Severity Reaction Status Date / Time ciprofloxacin [From Cipro] Allergy Verified 08/14/18 20:20 - Home Medications Home Medications: Ambulatory Orders Allopurinol [Zyloprim -] 100 mg PO DAILY 08/14/18 Amlodipine Besylate 10 mg PO DAILY 08/14/18 Hydrochlorothiazide [Hctz -] 25 mg PO DAILY 12/15/19 Tamsulosin HCl 0.4 mg PO DAILY 12/15/19 Family Medical History Family History: Unable to Obtain, Denies Review of Systems - Review of Systems Constitutional: reports: Loss of Appetite, Malaise, Unintentional Wgt. Loss, Weakness Eyes: reports: No Symptoms HENT: reports: No Symptoms Neck: reports: No Symptoms Cardiovascular: reports: No Symptoms Respiratory: reports: No Symptoms Gastrointestinal: reports: No Symptoms Genitourinary: reports: Frequency, Urgency Integumentary: reports: No Symptoms Neurological: reports: No Symptoms Endocrine: reports: No Symptoms Hematology/Lymphatic: reports: No Symptoms Psychiatric: reports: No Symptoms Physical Exam Vital Signs: Vital Signs Temperature 98.7 F 12/16/19 06:00 Pulse Rate 90 12/16/19 09:30 Respiratory Rate 12/16/19 09:30 Blood Pressure 154/79 12/16/19 09:30 O2 Sat by Pulse Oximetry (%) 97 12/16/19 14:52 Constitutional: Yes: Calm Eyes: Yes: Conjunctiva Clear HENT: Yes: Atraumatic Neck: Yes: Supple Cardiovascular: Yes: S1, S2 Respiratory: Yes: CTA Bilaterally Gastrointestinal: Yes: Soft Renal/: Yes: Goldstein Present Musculoskeletal: Yes: Muscle Weakness Edema: No Neurological: Yes: Confusion Psychiatric: Yes: Oriented Labs: CBC, BMP 12/16/19 11:13 12/16/19 11:13 Imaging - Results Ultrasound: Report Reviewed Problem List - Problems (1) KARLO (acute kidney injury) Code(s): N17.9 - ACUTE KIDNEY FAILURE, UNSPECIFIED (2) AMS (altered mental status) Code(s): R41.82 - ALTERED MENTAL STATUS, UNSPECIFIED Qualifiers: Altered mental status type: disorientation Qualified Code(s): R41.0 - Disorientation, unspecified (3) UTI (urinary tract infection) Code(s): N39.0 - URINARY TRACT INFECTION, SITE NOT SPECIFIED Qualifiers: Urinary tract infection type: acute cystitis Hematuria presence: without hematuria Qualified Code(s): N30.00 - Acute cystitis without hematuria Assessment/Plan Current Medications Generic Name Dose Route Start Last Admin Trade Name Freq PRN Reason Stop Dose Admin Amlodipine Besylate 10 mg 12/16/19 10:00 12/16/19 11:45 Norvasc - PO 10 mg DAILY [facility] Administration Heparin Sodium (Porcine) 5,000 unit 12/16/19 06:00 12/16/19 14:39 Heparin - SQ 5,000 unit TID [facility] Administration Sodium Chloride 1,000 mls @ 75 mls/hr 12/16/19 05:30 12/16/19 06:01 Normal Saline - IV 75 mls/hr ASDIR [facility] Administration Ceftriaxone Sodium 2 gm/ 100 mls @ 100 mls/hr 12/17/19 05:00 Dextrose IVPB DAILY [facility] Tamsulosin HCl 0.4 mg 12/16/19 08:30 12/16/19 09:20 Flomax - PO 0.4 mg DAILY@0830 [facility] Administration Laboratory Tests 12/15/19 12/16/19 12/16/19 22:50 02:40 11:13 Sodium 134 L BUN 106.9 H* 87.5 H Creatinine 6.4 H 5.3 H COVID-19 (OZ) Pending Impression 1. KARLO 2. hydronephrosis 3. urinary obstruction 4. weight loss 5. altered mental status 6. uti 7. htn 8. possible pancreatic mass Plan - maintain goldstein - monitor urine output - cont fluids - monitor for post obstructive diuresis - graphic art sales representative improving - urology eval - follow cultures - pt off of bactrim - repeat labs in am
[2019-12-16] MEDS: SODIUM CHLORIDE 1,000 ML IV SCH (17:06)
--- NOTE | 2019-12-16 18:15 | EKG ---
Test Reason : Blood Pressure : / mmHG Vent. Rate : 103 BPM Atrial Rate : 103 BPM P-R Int : 140 ms QRS Dur : 068 ms QT Int : 364 ms P-R-T Axes : 059 -31 063 degrees QTc Int : 476 ms SINUS TACHYCARDIA WITH PREMATURE ATRIAL COMPLEXES LEFT AXIS DEVIATION LOW VOLTAGE QRS ABNORMAL ECG NO PREVIOUS ECGS AVAILABLE Confirmed by RENAN JUAREZ MD ([id number]) on 12/16/2019 6:15:31 PM Referred By: Confirmed By:RENAN JUAREZ MD
--- NOTE | 2019-12-16 19:43 | PN ---
Physical Exam: SUBJECTIVE: Patient seen and examined at bedside. Patient was awake and alert, but oriented x 1, to person only. Patient is confused still, baseline reported from alert and oriented x3 with independence with his ADLs. OBJECTIVE: Vital Signs Period Temp Pulse Resp BP Sys/Odell Pulse Ox Last 24 Hr 98.2 F-98.9 F 77-109 16-20 122-154/66-92 97-100 GENERAL: Awake, alert, and Ox1, in no acute distress. HEAD: Normal with no signs of trauma. EYES: Sclera anicteric, conjunctiva clear. No lid lag. NECK: Supple without lymphadenopathy, JVD, or masses. LUNGS: Breath sounds equal, clear to auscultation bilaterally. No wheezes, and no crackles. No accessory muscle use. HEART: Regular rate and rhythm, normal S1 and S2 without murmur, rub or gallop. ABDOMEN: Soft, nontender, not distended, normoactive bowel sounds, no guarding, no rebound, no masses. No hepatomegaly or splenomegaly. MUSCULOSKELETAL: Normal range of motion at all joints. No bony deformities or tenderness. No CVA tenderness. UPPER EXTREMITIES: 2+ pulses, warm, well-perfused. No cyanosis. No clubbing. No peripheral edema. LOWER EXTREMITIES: 2+ pulses, warm, well-perfused. No calf tenderness. No peripheral edema. NEUROLOGICAL: Alert, ox1 SKIN: Warm, dry Laboratory Results - last 24 hr 12/15/19 12/15/19 12/16/19 22:50 22:50 00:45 WBC 14.6 H RBC 3.81 L Hgb 12.7 Hct 37.7 MCV 98.9 H MCH 33.4 MCHC 33.8 RDW 13.7 Plt Count 534 H MPV 7.6 Absolute Neuts (auto) 12.6 H Neutrophils % 85.9 H Lymphocytes % 3.7 L Monocytes % 9.6 Eosinophils % 0.3 Basophils % 0.5 Nucleated RBC % 0 Sodium 132 L Potassium 3.9 Chloride 98 Carbon Dioxide 19 L Anion Gap 15 BUN 106.9 H* Creatinine 6.4 H Est GFR (CKD-EPI)AfAm 8.39 Est GFR (CKD-EPI)NonAf 7.24 Random Glucose 120 H Hemoglobin A1c % Serum Osmolality Uric Acid Calcium 8.9 Phosphorus 3.5 Magnesium 2.7 H Total Bilirubin 0.8 AST 108 H ALT 161 H Alkaline Phosphatase 89 Troponin I 0.03 Total Protein 8.6 H Albumin 3.2 L Vitamin B12 Serum Folate TSH 2.63 Urine Color Yellow Urine Appearance Turbid Urine pH 5.5 Ur Specific [place] 1.014 Urine Protein Trace Urine Glucose (UA) Negative Urine Ketones Negative Urine Blood 2+ H Urine Nitrite Positive H Urine Bilirubin Negative Urine Urobilinogen 0.2 Ur Leukocyte Esterase 3+ H Urine WBC (Auto) 9551 Urine RBC (Auto) 81 Urine Casts (Auto) 1 U Epithel Cells (Auto) 4 Urine Bacteria (Auto) 3845 Urine Osmolality Ur Random Creatinine Ur Random Sodium 12/16/19 12/16/19 12/16/19 07:50 11:13 11:13 WBC 11.4 H RBC 3.79 L Hgb 12.5 Hct 37.8 MCV 99.7 H MCH 33.0 MCHC 33.1 RDW 13.3 Plt Count 484 H MPV 7.9 Absolute Neuts (auto) 9.9 H Neutrophils % 86.4 H Lymphocytes % 4.6 L D Monocytes % 8.6 Eosinophils % 0.2 Basophils % 0.2 Nucleated RBC % 0 Sodium Potassium Chloride Carbon Dioxide Anion Gap BUN Creatinine Est GFR (CKD-EPI)AfAm Est GFR (CKD-EPI)NonAf Random Glucose Hemoglobin A1c % 5.1 Serum Osmolality Uric Acid Calcium Phosphorus Magnesium Total Bilirubin AST ALT Alkaline Phosphatase Troponin I Total Protein Albumin Vitamin B12 Serum Folate TSH Urine Color Urine Appearance Urine pH Ur Specific [place] Urine Protein Urine Glucose (UA) Urine Ketones Urine Blood Urine Nitrite Urine Bilirubin Urine Urobilinogen Ur Leukocyte Esterase Urine WBC (Auto) Urine RBC (Auto) Urine Casts (Auto) U Epithel Cells (Auto) Urine Bacteria (Auto) Urine Osmolality Ur Random Creatinine 136.0 Ur Random Sodium 40 12/16/19 12/16/19 12/16/19 11:13 14:00 14:00 WBC RBC Hgb Hct MCV MCH MCHC RDW Plt Count MPV Absolute Neuts (auto) Neutrophils % Lymphocytes % Monocytes % Eosinophils % Basophils % Nucleated RBC % Sodium 134 L Potassium 3.7 Chloride 98 Carbon Dioxide 23 Anion Gap 13 BUN 87.5 H Creatinine 5.3 H Est GFR (CKD-EPI)AfAm 10.54 Est GFR (CKD-EPI)NonAf 9.10 Random Glucose 98 Hemoglobin A1c % Serum Osmolality 313 H Uric Acid 10.5 H Calcium 9.1 Phosphorus Magnesium Total Bilirubin 0.6 AST 88 H ALT 141 H Alkaline Phosphatase 89 Troponin I Total Protein 8.0 Albumin 2.9 L Vitamin B12 1147 H Serum Folate 16 TSH 1.93 D Urine Color Urine Appearance Urine pH Ur Specific [place] Urine Protein Urine Glucose (UA) Urine Ketones Urine Blood Urine Nitrite Urine Bilirubin Urine Urobilinogen Ur Leukocyte Esterase Urine WBC (Auto) Urine RBC (Auto) Urine Casts (Auto) U Epithel Cells (Auto) Urine Bacteria (Auto) Urine Osmolality 405 Ur Random Creatinine 47.0 Ur Random Sodium 97 Active Medications Generic Name Dose Route Start Last Admin Trade Name Freq PRN Reason Stop Dose Admin Amlodipine Besylate 10 mg 12/16/19 10:00 12/16/19 11:45 Norvasc - PO 10 mg DAILY GAURI Administration Heparin Sodium (Porcine) 5,000 unit 12/16/19 06:00 12/16/19 14:39 Heparin - SQ 5,000 unit TID GAURI Administration Ceftriaxone Sodium 2 gm/ 100 mls @ 100 mls/hr 12/17/19 05:00 Dextrose IVPB DAILY GAURI Sodium Chloride 1,000 mls @ 100 mls/hr 12/16/19 16:57 12/16/19 17:06 Normal Saline - IV 100 mls/hr ASDIR GAURI Administration Tamsulosin HCl 0.4 mg 12/16/19 08:30 12/16/19 09:20 Flomax - PO 0.4 mg DAILY@0830 GAURI Administration 12/15: CTAB: Postsurgical changes left lobe of the liver. There is heavy calcification within the right lobe of the liver versus metallic density. Correlate with prior intervention. Questionable pancreatic mass, consider abdominal/pelvic CT with intravenous contrast media or MR imaging. Collection in the lower pole and medial of the left kidney as described above. Findings could represent sequela from prior instrumentation, calyceal rupture from prior hydronephrosis, correlate with history. Perinephric stranding is identified. Hyperdense lesion within the lower pole of the left kidney as discussed above, consider ultrasound imaging for further assessment as clinically warranted. Postsurgical clips within the right colon, correlate with prior surgery. Enlarged prostate gland with a Goldstein catheter in place. ASSESSMENT/PLAN: Denis Morrison Jr is a 84 Y M with a PMH of HTN presented to ER with his for 2 weeks of worsening altered mental status, confusion, decreased PO intake, 15 lbs weight loss, difficulty ambulating. Admitted for sepsis 2/2 to acute complicated cystitis #Acute Metabolic encephalopathy 2/2 pyelonephritis - UA Positive for UTI - pt is AAOx1, confused - No evidence of acute intracranial pathology on noncontrast head CT scan though it is reported as suboptimal study. - Pelvic/Bladder and Kidney u/s: Mild bilateral hydronephrosis, Over distended urinary bladder with retention - CTAB as noted above - Continue Goldstein and monitor I&O - Continue Flomax - Gentle hydration NS@75cc/hr #Pancreatic Mass - CTAB: Questionable pancreatic mass, consider abdominal/pelvic CT with intravenous contrast media or MR imaging. - weight loss + anorexia - Pending tumor markers, patient may need MRI evaluation to evaluate for the mass #TRANSAMINITIS: - Possibly 2/2 to Pancreatic Mass - will continue to monitor #KARLO: - May be 2/2 Bactrim toxicity. Bactrim was given 9days ago, off of bactrim now - BUN/Crea 87.5/5.3 - Pelvic/Bladder and Kidney u/s: Mild bilateral hydronephrosis, Over distended urinary bladder with retention - Gentle hydration, monitor urine output - Nephrology consulted: maintain goldstein, monitor urine output, cont fluids, monitor for post obstructive diuresis - Avoid nephrotoxic agents such as NSAIDS, aminoglycosides, contrast dyes and certain Alternative medicine products. #HTN: - Continue Norvasc 10mg daily #FEN: - Gentle hydration - Continue to monitor electrolytes - Soft diet when tolerated #DVT prophylaxis - Heparin 5000u sq tid. #DISPOSITION: - Continue to monitor in MS, pending speech eval and neuro eval Visit type - Emergency Visit Emergency Visit: Yes ED Registration Date: 12/16/19 Care time: The patient presented to the Emergency Department on the above date and was hospitalized for further evaluation of their emergent condition. - New Patient This patient is new to me today: No - Critical Care Critical Care patient: No - Discharge Referral [facility]erred to [facility] Med P.C[facility] No - Medication Review Med list reviewed for High Risk Meds patients 65 and older: Yes ATTENDING PHYSICIAN STATEMENT I saw and evaluated the patient. I reviewed the resident's note and discussed the case with the resident. I agree with the resident's findings and plan as documented. SUBJECTIVE: OBJECTIVE: ASSESSMENT AND PLAN:
--- NOTE | 2019-12-16 23:47 | PDOC ---
Documentation entered by Jc Hartley SCRIBE, acting as scribe for Omer Brock DO. Omer Brock DO: This documentation has been prepared by the asif, Jc Hartley SCRIBE, under my direction and personally reviewed by me in its entirety. I confirm that the documentation accurately reflects all work, treatment, procedures, and medical decision making performed by me. Attending Attestation - Resident Resident Name: Marcos Diaz - ED Attending Attestation I have performed the following: I have examined & evaluated the patient, The case was reviewed & discussed with the resident, I agree w/resident's findings & plan, Exceptions are as noted - HPI HPI: 12/15/19 23:11 84 Year old Male with a history of hypertension brought in by for 2 weeks of worsening altered mental status, confusion, decreased PO intake, 15 lbs weight loss, difficulty ambulating. His is the primary historian who denies nausea, vomiting, chest pain. Pt has no complaints. History is somewhat limited as patient has some confusion - Physicial Exam PE: 12/15/19 23:12 Pleasant well kept male in no apparent distress Speaking in full sentences Appears to have subtle word finding difficulty without gross aphasia No focal deficit on neurological exam Moving all extremities Normal cardiopulmonary exam Neuro: a and o to person and place but not time Appears pleasantly demented - Medical Decision Making 12/15/19 23:12 A and P 84 year old male with AMS Will evaluate for missed CVA vs. UTI pneumonia vs atypical acs Plan: ct head, cardiac enzymes, ua, chest x ray, iv fluids, EKG Reassessment Likely plan for admission given patient has difficulty ambulating and is a fall risk 12/15/19 23:22 EKG sinus tachy 103 normal axis no acute ischemia Time 23:15 Reassessment meets sepsis criteria white count 11110 tachy to 103 will evaluate for source of infection patient is is afebrile normal appearing will cover with antibiotics when source of infection is determined 12/16/19 00:43 patient found to have KARLO and prerenal a with BUN 106 and creatinine 6.4 with normal potassium likely why pt is tachy due to dehydration appears well will admit for renal failure, AMS AMS likely secondary to uremia pending UA blood glucose 120 Discharge - Discharge Information Problems reviewed: Yes Clinical Impression/Diagnosis: KARLO (acute kidney injury), Dehydration UTI (urinary tract infection) Qualifiers: Urinary tract infection type: acute cystitis Hematuria presence: without hematuria Qualified Code(s): N30.00 - Acute cystitis without hematuria AMS (altered mental status) Qualifiers: Altered mental status type: disorientation Qualified Code(s): R41.0 - Disorientation, unspecified Condition: Stable - Follow up/Referral - Patient Discharge Instructions - Post Discharge Activity
[2019-12-17] MEDS ORDERED: DEXTROSE 5%-WATER 100 ML IVPB ONE ×2 (05:48→09:20)
[2019-12-17] MEDS: HEPARIN NA (PORCINE) 5,000 UNITS/ML 1ML VIAL SQ SCH ×3 (05:58→22:56)
[2019-12-17] MEDS: CEFTRIAXONE 2 GM in DEXTROSE 5%-WATER 100 ML IVPB SCH (05:58)
[2019-12-17 08:18] LABS: BASO % 0.1 % (0-2.0); EOS % 1.4 % (0-4.5); HEMATOCRIT 38.7 % (35.4-49); HEMOGLOBIN 12.9 GM/dL (11.7-16.9); MCH 32.8 pg (25.7-33.7); MCHC 33.3 g/dl (32.0-35.9); MEAN CELL VOLUME 98.5 fl (80-96); MEAN PLT VOLUME 7.9 fl (7.5-11.1); NEUT % 79.5 % (42.8-82.8); PLATELET COUNT 529 K/MM3 (134-434); RBC 3.93 M/mm3 (4.00-5.60); RDW 13.6 % (11.9-15.9); WHITE BLOOD COUNT 8.4 K/mm3 (4.0-10.0)
[2019-12-17 08:53] LABS: ALBUMIN 2.5 g/dl (3.4-5.0); BILIRUBIN,TOTAL 0.6 mg/dL (0.2-1); CALCIUM 8.9 mg/dL (8.5-10.1); CREATININE 2.4 mg/dL (0.55-1.3); MAGNESIUM 2.1 mg/dL (1.8-2.4); PHOSPHOROUS 2.6 mg/dL (2.5-4.9); POTASSIUM 3.8 mmol/L (3.5-5.1); TOT PROT 7.4 g/dl (6.4-8.2)
[2019-12-17] MEDS: amLODIPine BESYLATE 10 MG TABLET (FP) PO SCH (09:27)
[2019-12-17] MEDS: TAMSULOSIN HCL 0.4 MG CAP PO SCH (09:27)
--- NOTE | 2019-12-17 10:22 | PN ---
Progress Note, PROGRAM MANAGER - Note Progress Note: Selected Entries 12/16/19 12/16/19 12/16/19 01:30 03:34 06:00 Diet Tolerated Eating (Feeding Maximum ) Ability Assistance Supper Temperature 98.6 F 98.2 F 98.7 F Blood Pressure 140/80 Blood Pressure 122/89 125/92 [Left Arm] 12/16/19 12/16/19 12/16/19 09:30 20:03 21:39 Diet Tolerated Poor Eating (Feeding ) Ability Supper 25% Temperature 98.0 F Blood Pressure 137/53 L Blood Pressure 154/79 [Left Arm] 12/17/19 05:00 Diet Tolerated Eating (Feeding ) Ability Supper Temperature 98.5 F Blood Pressure 145/68 Blood Pressure [Left Arm] Laboratory Tests 12/15/19 12/16/19 12/16/19 22:50 02:40 11:13 WBC 14.6 H 11.4 H COVID-19 (OZ) Pending 12/17/19 07:25 WBC 8.4 COVID-19 (OZ) On soft diet/thin liquids DIRECT SUPPORT STAFF reported ate 75% Seen by [id number] study raises question of pancreatic mass Reported to be confused Upon reassessment, o x [facility],Nov 2019, rambles with impaired insight? Swallowing is brisk. Able to chew well today for me.
--- NOTE | 2019-12-17 12:09 | CON.GI ---
Consult Consult Specialty:: GI Referred by:: Hoospitalist Service Reason for Consultation:: Question of pancreatic mass - History of Present Illness Chief Complaint: Patient without focal complaints currently History of Present Illness: 84M admitted 12/14 for N/V. Noted to have ? perinephric fluid collection. Also question of pancreatic mass. This was a non-contrast study. Patient is a poor historian. No focal complaints and appears to be tolerating meals. Has an abdominal scar. Describes this vaguely as being an exploratory surgery. There are surgical changes within his liver per CT scan report. - History Source History Provided By: Patient - Past Medical History Cardio/Vascular: Yes: HTN Rheumatology: Yes: Gout - Past Surgical History Additional Surgical History: Unspecified abdominal surgery - Alcohol/Substance Use Hx Alcohol Use: No - Smoking History Smoking history: Never smoked Have you smoked in the past 12 months: No - Social History Place of : [facility] Home Medications - Allergies Allergies/Adverse Reactions: Allergies Allergy/AdvReac Type Severity Reaction Status Date / Time ciprofloxacin [From Cipro] Allergy Verified 08/14/18 20:20 - Home Medications Home Medications: Ambulatory Orders Allopurinol [Zyloprim -] 100 mg PO DAILY 08/14/18 Amlodipine Besylate 10 mg PO DAILY 08/14/18 Hydrochlorothiazide [Hctz -] 25 mg PO DAILY 12/15/19 Tamsulosin HCl 0.4 mg PO DAILY 12/15/19 Family Medical History Family History: Unable to Obtain, Denies Other Family History: No family history of cancer Review of Systems - Review of Systems Constitutional: denies: Chills Cardiovascular: denies: Chest Pain Respiratory: denies: Cough Gastrointestinal: denies: Abdominal Pain, Diarrhea, Melena, Rectal Bleeding Musculoskeletal: denies: Back Pain Physical Exam-GI Vital Signs: Vital Signs Temperature 98.1 F 12/17/19 09:00 Pulse Rate 86 12/17/19 09:00 Respiratory Rate 20 12/17/19 09:00 Blood Pressure 150/70 12/17/19 09:00 O2 Sat by Pulse Oximetry (%) 99 12/17/19 09:00 Constitutional: Yes: Calm Cardiovascular: Yes: Regular Rate and Rhythm, Murmur (+2/6 systolic ejection murmur heard best at the RSB) Respiratory: Yes: CTA Bilaterally Gastrointestinal Inspection: Yes: Scars (Midline vertical upper abdominal surgical scar) ...Auscultate: Yes: Normoactive Bowel Sounds ...Palpate: Yes: Soft. No: Hepatomegaly, Splenomegaly, Tenderness ...Percussion: No: Tympanitic Edema: No (No LE edema) Neurological: Yes: Alert, Oriented (x person, place, partially to time) Labs: CBC, BMP 12/17/19 07:25 12/17/19 07:25 Hepatic Panel Total Bilirubin 0.6 mg/dL (0.2-1) 12/17/19 07:25 AST 73 U/L (15-37) H 12/17/19 07:25 ALT 115 U/L (13-61) H 12/17/19 07:25 Alkaline Phosphatase 80 U/L (45-117) 12/17/19 07:25 Albumin 2.5 g/dl (3.4-5.0) L 12/17/19 07:25 Problem List - Problems (1) Pancreatic mass Assessment/Plan: Non-contrast study raises question of pancreatic mass. Will need contrast imaging of the pancreas (MRI or CT scan of abdomen with pancreatic protocol). If current renal function precludes contrast MRI or CT scan imaging of the pancreas, patient can be transferred to a facility where EUS could be performed and where he can be assessed by a heptobiliary team. Unclear surgery in his liver. Unclear why multiple tumor markers were drawn. Code(s): K86.89 - OTHER SPECIFIED DISEASES OF PANCREAS (2) Transaminitis Assessment/Plan: Check CPK to assess for rhabdomyolysis Check hepatitis A/B panel, HCV diagnostic (HCV antibody screen) Avoid hepatotoxic agents Monitor LFTs Code(s): R74.0 - NONSPEC ELEV OF LEVELS OF TRANSAMNS & LACTIC ACID DEHYDRGNSE
--- NOTE | 2019-12-17 13:12 | PN ---
Progress Note, Physician History of Present Illness: Pt seen and examined at bedside. He is awake but confused. - Current Medication List Current Medications: Active Medications Amlodipine Besylate (Norvasc -) 10 mg PO DAILY [facility] Last Admin: 12/17/19 09:27 Dose: 10 mg Documented by: Heparin Sodium (Porcine) (Heparin -) 5,000 unit SQ TID [facility] Last Admin: 12/17/19 05:58 Dose: 5,000 unit Documented by: Ceftriaxone Sodium 2 gm/ (Dextrose) 100 mls @ 100 mls/hr IVPB DAILY [facility] Last Admin: 12/17/19 05:58 Dose: 100 mls/hr Documented by: Sodium Chloride (Normal Saline -) 1,000 mls @ 100 mls/hr IV ASDIR [facility] Last Admin: 12/16/19 17:06 Dose: 100 mls/hr Documented by: Tamsulosin HCl (Flomax -) 0.4 mg PO DAILY@0830 [facility] Last Admin: 12/17/19 09:27 Dose: 0.4 mg Documented by: - Objective Vital Signs: Vital Signs Temperature 98.1 F 12/17/19 09:00 Pulse Rate 86 12/17/19 09:00 Respiratory Rate 20 12/17/19 09:00 Blood Pressure 150/70 12/17/19 09:00 O2 Sat by Pulse Oximetry (%) 99 12/17/19 09:00 Constitutional: Yes: Calm Eyes: Yes: Conjunctiva Clear HENT: Yes: Atraumatic Neck: Yes: Supple Cardiovascular: Yes: S1, S2 Respiratory: Yes: CTA Bilaterally Gastrointestinal: Yes: Soft Genitourinary: Yes: Campbell Present Musculoskeletal: Yes: WNL Edema: No Neurological: Yes: Confusion Labs: CBC, BMP 12/17/19 07:25 12/17/19 07:25 Problem List - Problems (1) KARLO (acute kidney injury) Code(s): N17.9 - ACUTE KIDNEY FAILURE, UNSPECIFIED (2) AMS (altered mental status) Code(s): R41.82 - ALTERED MENTAL STATUS, UNSPECIFIED Qualifiers: Altered mental status type: disorientation Qualified Code(s): R41.0 - Disorientation, unspecified (3) UTI (urinary tract infection) Code(s): N39.0 - URINARY TRACT INFECTION, SITE NOT SPECIFIED Qualifiers: Urinary tract infection type: acute cystitis Hematuria presence: without hematuria Qualified Code(s): N30.00 - Acute cystitis without hematuria Assessment/Plan Current Medications Generic Name Dose Route Start Last Admin Trade Name Maricarmen PRN Reason Stop Dose Admin Amlodipine Besylate 10 mg 12/16/19 10:00 12/17/19 09:27 Norvasc - PO 10 mg DAILY GAURI Administration Heparin Sodium (Porcine) 5,000 unit 12/16/19 06:00 12/17/19 05:58 Heparin - SQ 5,000 unit TID GAURI Administration Ceftriaxone Sodium 2 gm/ 100 mls @ 100 mls/hr 12/17/19 05:00 12/17/19 05:58 Dextrose IVPB 100 mls/hr DAILY GAURI Administration Sodium Chloride 1,000 mls @ 100 mls/hr 12/16/19 16:57 12/16/19 17:06 Normal Saline - IV 100 mls/hr ASDIR GAURI Administration Tamsulosin HCl 0.4 mg 12/16/19 08:30 12/17/19 09:27 Flomax - PO 0.4 mg DAILY@0830 GAURI Administration Impression 1. KARLO 2. hydronephrosis 3. urinary obstruction 4. weight loss 5. altered mental status 6. uti 7. htn 8. possible pancreatic mass Plan - cont fluids - renal function is improved - cont to monitor mental status, he remains confused - malignancy workup in progress - discussed with medical team - monitor for post obstructive diuresis - studio coordinator improving - urology romero
--- NOTE | 2019-12-17 13:40 | CONS ---
DATE OF CONSULTATION: DATE OF DICTATION: 12/17/2019 Patient is an 84-year-old male admitted with hypertension and altered mental status, also had poor oral intake and a 15-pound weight loss. He was found to be in acute kidney failure. He denies shortness of breath or palpitations. He does have a history of prostatism with frequency, urgency and dribbling. He has history of gout. He denies any ethanol or tobacco use. He is allergic to CIPRO. Presently he is on allopurinol, Norvasc, hydrochlorothiazide and Flomax. In the emergency room his temperature is 97.8, blood pressure 156/79, pulse oximetry 97%. His BUN was 87 and creatinine 5.4. His white count is 11.4. Hemoglobin is 12.5 and hematocrit 37.8. A CT scan of his abdomen and pelvis revealed postsurgical changes left lobe of liver, collection in the lower pole and medial of the left kidney, calyceal rupture from prior hydronephrosis. Perinephric stranding is identified. Hyperdense lesion within the lower pole of the left kidney, enlarged prostate with a distended bladder. A Campbell catheter has been introduced. An earlier ultrasound of the kidneys had revealed bilateral hydroureteronephrosis with overdistended bladder. The patient's latest lab data reveals a white count of 8.4, hemoglobin of 12.9 and hematocrit 38.7, a BUN of 52 and creatinine 2.4. The urine reveals positive nitrites and 2+ blood. Urine culture grew out lactose-fermenting gram-negative bacilli. IMPRESSION AT PRESENT: Obstructive azotemia with urinary tract infection. Will manage patient medically until renal function returns to normal. Patient will need a cystoscopy, possible TUR when he is medically stable. Will follow with you. EDGARD NICHOLS M.D. MARIA [id number]
--- NOTE | 2019-12-17 15:31 | PN ---
Physical Exam: SUBJECTIVE: Patient seen and examined at bedside. Patient is more awake and alert. He is oriented x3, today. No acute events overnight. Goldstein is draining yellow urines. Denies any chest pain, SOB, fever, chills, nausea, vomiting, diarrhea, constipation OBJECTIVE: Vital Signs Period Temp Pulse Resp BP Sys/Odell Pulse Ox Last 24 Hr 98.0 F-98.5 F 86-90 20-20 122-150/53-70 99-100 GENERAL: Awake, alert, and Ox3, in no acute distress. HEAD: Normal with no signs of trauma. EYES: Sclera anicteric, conjunctiva clear. No lid lag. NECK: Supple without lymphadenopathy, JVD, or masses. LUNGS: Breath sounds equal, clear to auscultation bilaterally. No wheezes, and no crackles. No accessory muscle use. HEART: Regular rate and rhythm, normal S1 and S2 without murmur, rub or gallop. ABDOMEN: Soft, nontender, not distended, normoactive bowel sounds, no guarding, no rebound, no masses. No hepatomegaly or splenomegaly. MUSCULOSKELETAL: Normal range of motion at all joints. No bony deformities or tenderness. No CVA tenderness. UPPER EXTREMITIES: 2+ pulses, warm, well-perfused. No cyanosis. No clubbing. No peripheral edema. LOWER EXTREMITIES: 2+ pulses, warm, well-perfused. No calf tenderness. No peripheral edema. NEUROLOGICAL: Alert, ox3 SKIN: Warm, dry Laboratory Results - last 24 hr 12/16/19 12/16/19 12/16/19 02:40 11:13 11:13 WBC RBC Hgb Hct MCV MCH MCHC RDW Plt Count MPV Absolute Neuts (auto) Neutrophils % Lymphocytes % Monocytes % Eosinophils % Basophils % Nucleated RBC % Sodium Potassium Chloride Carbon Dioxide Anion Gap BUN Creatinine Est GFR (CKD-EPI)AfAm Est GFR (CKD-EPI)NonAf Random Glucose Serum Osmolality 313 H Calcium Phosphorus Magnesium Total Bilirubin AST ALT Alkaline Phosphatase Total Protein Albumin Tumor Marker AFP CA 19-9 Antigen 121 H CA 125 Antigen 15.7 Prostate Specific Ag COVID-19 (OZ) Not detected 12/16/19 12/17/19 12/17/19 11:13 07:25 07:25 WBC 8.4 RBC 3.93 L Hgb 12.9 Hct 38.7 MCV 98.5 H MCH 32.8 MCHC 33.3 RDW 13.6 Plt Count 529 H MPV 7.9 Absolute Neuts (auto) 6.7 Neutrophils % 79.5 Lymphocytes % 8.0 D Monocytes % 11.0 H Eosinophils % 1.4 D Basophils % 0.1 Nucleated RBC % 0 Sodium 139 Potassium 3.8 Chloride 103 Carbon Dioxide 23 Anion Gap 12 BUN 52.0 H Creatinine 2.4 H Est GFR (CKD-EPI)AfAm 27.48 Est GFR (CKD-EPI)NonAf 23.71 Random Glucose 105 Serum Osmolality Calcium 8.9 Phosphorus 2.6 Magnesium 2.1 Total Bilirubin 0.6 AST 73 H ALT 115 H Alkaline Phosphatase 80 Total Protein 7.4 Albumin 2.5 L Tumor Marker AFP 1.7 CA 19-9 Antigen CA 125 Antigen Prostate Specific Ag 33.60 H COVID-19 (OZ) Active Medications Generic Name Dose Route Start Last Admin Trade Name Freq PRN Reason Stop Dose Admin Amlodipine Besylate 10 mg 12/16/19 10:00 12/17/19 09:27 Norvasc - PO 10 mg DAILY GAURI Administration Heparin Sodium (Porcine) 5,000 unit 12/16/19 06:00 12/17/19 14:22 Heparin - SQ 5,000 unit TID GAURI Administration Ceftriaxone Sodium 2 gm/ 100 mls @ 100 mls/hr 12/17/19 05:00 12/17/19 05:58 Dextrose IVPB 100 mls/hr DAILY GAURI Administration Sodium Chloride 1,000 mls @ 100 mls/hr 12/16/19 16:57 12/16/19 17:06 Normal Saline - IV 100 mls/hr ASDIR GAURI Administration Tamsulosin HCl 0.4 mg 12/16/19 08:30 12/17/19 09:27 Flomax - PO 0.4 mg DAILY@0830 GAURI Administration 12/15: CTAB: Postsurgical changes left lobe of the liver. There is heavy calci fication within the right lobe of the liver versus metallic density. Correlate with prior intervention. Questionable pancreatic mass, consider abdominal/pelvic CT with intravenous contrast media or MR imaging. Collection in the lower pole and medial of the left kidney as described above. Findings could represent sequela from prior instrumentation, calyceal rupture from prior hydronephrosis, correlate with history. Perinephric stranding is identified. Hyperdense lesion within the lower pole of the left kidney as discussed above, consider ultrasound imaging for further assessment as clinically warranted. Postsurgical clips within the right colon, correlate with prior surgery. Enlarged prostate gland with a Goldstein catheter in place. ASSESSMENT/PLAN: Denis Morrison Jr is a 84 Y M with a PMH of HTN presented to ER with his for 2 weeks of worsening altered mental status, confusion, decreased PO intake, 15 lbs weight loss, difficulty ambulating. Admitted for sepsis 2/2 to acute complicated cystitis #Acute Metabolic encephalopathy 2/2 UTI - UA Positive for UTI - pt is AAOx1, confused - No evidence of acute intracranial pathology on noncontrast head CT scan though it is reported as suboptimal study. - Pelvic/Bladder and Kidney u/s: Mild bilateral hydronephrosis, Over distended urinary bladder with retention - CTAB as noted above - Continue Goldstein and monitor I&O - Continue Flomax - Gentle hydration NS@75cc/hr # b/l Hydronephrosis w possible abscess - CTAB: fluid near the lower pole of the left kidney. A collection inferior and medial to the lower pole of the left kidney measures 5 x 4 x 4.5 cm. - Pelvic/Bladder and Kidney u/s: Mild bilateral hydronephrosis, Over distended urinary bladder with retention - Urology consulted (Dr. Bradford, [facility]), pending recs #KARLO: - May be 2/2 Bactrim toxicity vs UTI vs enlarged prostate vs hydronephrosis. - Bactrim was given 9days ago, off of bactrim now - BUN/Crea 52/2.4 - Pelvic/Bladder and Kidney u/s: Mild bilateral hydronephrosis, Over distended urinary bladder with retention - Gentle hydration, monitor urine output - Nephrology consulted (Dr. read): maintain goldstein, monitor urine output, cont fluids, monitor for post obstructive diuresis - Avoid nephrotoxic agents such as NSAIDS, aminoglycosides, contrast dyes and certain Alternative medicine products. #Pancreatic Mass - CTAB: Questionable pancreatic mass, consider abdominal/pelvic CT with intravenous contrast media or MR imaging. - weight loss + anorexia - Pending tumor markers, patient may need MRI evaluation to evaluate for the mass - GI consulted (Dr. Alvarez), Recs: -Will need contrast imaging of the pancreas (MRI or CT scan of abdomen with pancreatic protocol). If current renal function precludes contrast MRI or CT scan imaging of the pancreas, patient can be transferred to a facility where EUS could be performed and where he can be assessed by a heptobiliary team. - f/u Lipase #TRANSAMINITIS: - Possibly 2/2 to Pancreatic Mass - will continue to monitor - Avoid hepatotoxic agents - f/u CPK for evaluation of Rhabdomyolysis #HTN: - Continue Norvasc 10mg daily #FEN: - Gentle hydration - Continue to monitor electrolytes - Soft diet when tolerated #DVT prophylaxis - Heparin 5000u sq tid. #DISPOSITION: - Continue to monitor in MS, Urology and neuro eval Visit type - Emergency Visit Emergency Visit: Yes ED Registration Date: 12/16/19 Care time: The patient presented to the Emergency Department on the above date and was hospitalized for further evaluation of their emergent condition. - New Patient This patient is new to me today: Yes Date on this admission: 12/22/19 - Critical Care Critical Care patient: No - Discharge Referral Referred to [facility] No - Medication Review Med list reviewed for High Risk Meds patients 65 and older: Yes ATTENDING PHYSICIAN STATEMENT I saw and evaluated the patient. I reviewed the resident's note and discussed the case with the resident. I agree with the resident's findings and plan as documented. SUBJECTIVE: OBJECTIVE: ASSESSMENT AND PLAN:
[2019-12-17] MEDS: SODIUM CHLORIDE 1,000 ML IV SCH (16:45)
--- NOTE | 2019-12-17 19:26 | PN ---
Teaching Attending Note Name of Resident: Yusra Dominguez ATTENDING PHYSICIAN STATEMENT I saw and evaluated the patient. I reviewed the resident's note and discussed the case with the resident. I agree with the resident's findings and plan as documented. SUBJECTIVE: Feeling better, no complaints. OBJECTIVE: Afebrile, hemodynamically stable. AAO x 2 Last Vital Signs Temp Pulse Resp BP Pulse Ox 96.3 F L 94 H 18 136/79 99 12/17/19 16:15 12/17/19 16:15 12/17/19 16:15 12/17/19 16:15 12/17/19 09:00 HEENT - Atraumatic, normocephalic. Heart - S1, S2, SM Lungs - clear to auscultation Abdomen - soft, non-tender. Bowel Sounds normal. Extremities - no edema, no calf tenderness. Neuro - AAO x 2. Moving all 4 extremities. - goldstein in situ draining clear urine. Laboratory Results - last 24 hr 12/16/19 12/16/19 12/16/19 02:40 11:13 11:13 WBC RBC Hgb Hct MCV MCH MCHC RDW Plt Count MPV Absolute Neuts (auto) Neutrophils % Lymphocytes % Monocytes % Eosinophils % Basophils % Nucleated RBC % Sodium Potassium Chloride Carbon Dioxide Anion Gap BUN Creatinine Est GFR (CKD-EPI)AfAm Est GFR (CKD-EPI)NonAf Random Glucose Calcium Phosphorus Magnesium Total Bilirubin AST ALT Alkaline Phosphatase Creatine Kinase Creatine Kinase Index CK-MB (CK-2) Total Protein Albumin Tumor Marker AFP 1.7 CA 19-9 Antigen 121 H CA 125 Antigen 15.7 Prostate Specific Ag 33.60 H COVID-19 (OZ) Not detected 12/17/19 12/17/19 12/17/19 07:25 07:25 15:30 WBC 8.4 RBC 3.93 L Hgb 12.9 Hct 38.7 MCV 98.5 H MCH 32.8 MCHC 33.3 RDW 13.6 Plt Count 529 H MPV 7.9 Absolute Neuts (auto) 6.7 Neutrophils % 79.5 Lymphocytes % 8.0 D Monocytes % 11.0 H Eosinophils % 1.4 D Basophils % 0.1 Nucleated RBC % 0 Sodium 139 Potassium 3.8 Chloride 103 Carbon Dioxide 23 Anion Gap 12 BUN 52.0 H Creatinine 2.4 H Est GFR (CKD-EPI)AfAm 27.48 Est GFR (CKD-EPI)NonAf 23.71 Random Glucose 105 Calcium 8.9 Phosphorus 2.6 Magnesium 2.1 Total Bilirubin 0.6 AST 73 H ALT 115 H Alkaline Phosphatase 80 Creatine Kinase 151 Creatine Kinase Index 3.0 CK-MB (CK-2) 4.6 H Total Protein 7.4 Albumin 2.5 L Tumor Marker AFP CA 19-9 Antigen CA 125 Antigen Prostate Specific Ag COVID-19 (OZ) Current Medications Generic Name Dose Route Start Last Admin Trade Name Maricarmen PRN Reason Stop Dose Admin Amlodipine Besylate 10 mg 12/16/19 10:00 12/17/19 09:27 Norvasc - PO 10 mg DAILY GAURI Administration Heparin Sodium (Porcine) 5,000 unit 12/16/19 06:00 12/17/19 14:22 Heparin - SQ 5,000 unit TID GAURI Administration Ceftriaxone Sodium 2 gm/ 100 mls @ 100 mls/hr 12/17/19 05:00 12/17/19 05:58 Dextrose IVPB 100 mls/hr DAILY GAURI Administration Sodium Chloride 1,000 mls @ 100 mls/hr 12/16/19 16:57 12/17/19 16:45 Normal Saline - IV 100 mls/hr ASDIR GAURI Administration Tamsulosin HCl 0.4 mg 12/16/19 08:30 12/17/19 09:27 Flomax - PO 0.4 mg DAILY@0830 GAURI Administration Home Medications Medication Instructions Recorded Allopurinol [Zyloprim -] 100 mg PO DAILY 08/14/18 Amlodipine Besylate 10 mg PO DAILY 08/14/18 Hydrochlorothiazide [Hctz -] 25 mg PO DAILY 12/15/19 Tamsulosin HCl 0.4 mg PO DAILY 12/15/19 ASSESSMENT AND PLAN: 84 year old male with history of Gout, HTN, presents with confusion, weakness, decreased oral intake, increased urinary frequency and dysuria. 1. Acute Metabolic Encephalopathy secondary to UTI/Uremia AAO x 2, normal at baseline as per . CT head - no acute findings. Carotid Duplex - moderate atherosclerotic disease, no hemodynamically significant stenosis. Urine Cx - LFNB, Continue Ceftriaxone. Afebrile. 2. KARLO secondary to obstructive Uropathy Bilateral Hydronephrosis on Renal US, enlarged Prostate on CT with PSA 33.6 Creat improving s/p goldstein insertion Urology recommend Cystoscopy once more stable/resolution of KARLO. Continue Tamsulosin and IV hydration. 3. L Renal collection - ?etiology Urology for further eval and recommendations 4. Pancreatic Mass (possible), incidental finding on CT A/P MRCP suggested by GI once renal function allows. 5. Elevated LFTs ?etiology Hepatitis work-up as per GI Further recommendations as per GI. 6. HTN - HCTZ held due to KARLO. continue Norvasc. DVT Px - Heparin SQ
[2019-12-18] MEDS ORDERED: HALOPERIDOL LACTATE 5 MG/ML IM ONE (02:45)
[2019-12-18] MEDS: HEPARIN NA (PORCINE) 5,000 UNITS/ML 1ML VIAL SQ SCH ×3 (06:56→21:02)
[2019-12-18 08:42] LABS: BASO % 0.3 % (0-2.0); EOS % 1.4 % (0-4.5); HEMATOCRIT 38.6 % (35.4-49); HEMOGLOBIN 12.9 GM/dL (11.7-16.9); LYMPH % 4.1 % (8-40); MCH 32.9 pg (25.7-33.7); MCHC 33.4 g/dl (32.0-35.9); MEAN CELL VOLUME 98.7 fl (80-96); MEAN PLT VOLUME 7.7 fl (7.5-11.1); NEUT % 85.2 % (42.8-82.8); PLATELET COUNT 471 K/MM3 (134-434); RBC 3.91 M/mm3 (4.00-5.60); RDW 13.8 % (11.9-15.9)
[2019-12-18 09:15] LABS: ALBUMIN 2.5 g/dl (3.4-5.0); BILIRUBIN,TOTAL 0.8 mg/dL (0.2-1); CALCIUM 8.5 mg/dL (8.5-10.1); CREATININE 1.5 mg/dL (0.55-1.3); MAGNESIUM 1.5 mg/dL (1.8-2.4); PHOSPHOROUS 1.8 mg/dL (2.5-4.9); POTASSIUM 3.3 mmol/L (3.5-5.1); TOT PROT 7.4 g/dl (6.4-8.2)
[2019-12-18] MEDS ORDERED: MAGNESIUM 2GM/50ML STERILE WATER IVPB IVPB ONE (09:25)
[2019-12-18] MEDS ORDERED: POTASSIUM PHOSPHATE 30 MM in SODIUM CHLORIDE 500 ML IVPB ONE (09:25)
[2019-12-18] MEDS ORDERED: POTASSIUM CHLORIDE TABS 20 MEQ TABLET.ER (FP) PO ONE (09:26)
[2019-12-18 09:28] LABS: BLOOD UREA NITROGEN 24.5 mg/dL (7-18)
[2019-12-18] MEDS ORDERED: DEXTROSE 5%-WATER 100 ML IVPB ONE (10:57)
[2019-12-18] MEDS: TAMSULOSIN HCL 0.4 MG CAP PO SCH (11:05)
[2019-12-18] MEDS: amLODIPine BESYLATE 10 MG TABLET (FP) PO SCH (11:05)
[2019-12-18] MEDS: CEFTRIAXONE 2 GM in DEXTROSE 5%-WATER 100 ML IVPB SCH (11:06)
[2019-12-18] MEDS ORDERED: PT OWN MED DRAWER 7, Y5N ONE (11:37)
[2019-12-18] MEDS ORDERED: POTASSIUM CHLORIDE ORAL LIQUID 20 MEQ/15 ML PO ONE (11:53)
--- NOTE | 2019-12-18 11:55 | PN ---
Progress Note, Physician History of Present Illness: Pt seen and examined at bedside. He appears comfortable. - Current Medication List Current Medications: Active Medications Amlodipine Besylate (Norvasc -) 10 mg PO DAILY [facility] Last Admin: 12/18/19 11:05 Dose: 10 mg Documented by: Heparin Sodium (Porcine) (Heparin -) 5,000 unit SQ TID [facility] Last Admin: 12/18/19 06:56 Dose: 5,000 unit Documented by: Ceftriaxone Sodium 2 gm/ (Dextrose) 100 mls @ 100 mls/hr IVPB DAILY [facility] Last Admin: 12/18/19 11:06 Dose: 100 mls/hr Documented by: Sodium Chloride (Normal Saline -) 1,000 mls @ 100 mls/hr IV ASDIR [facility] Last Admin: 12/17/19 16:45 Dose: 100 mls/hr Documented by: Potassium Phosphate 30 mm/ (Sodium Chloride) 510 mls @ 62.5 mls/hr IVPB ONCE ONE Stop: 12/18/19 17:34 Last Admin: 12/18/19 11:52 Dose: 62.5 mls/hr Documented by: Mirtazapine (Remeron -) 15 mg PO [facility] Tamsulosin HCl (Flomax -) 0.4 mg PO DAILY@0830 [facility] Last Admin: 12/18/19 11:05 Dose: 0.4 mg Documented by: - Objective Vital Signs: Vital Signs Temperature 97.9 F 12/18/19 07:20 Pulse Rate 86 12/18/19 07:20 Respiratory Rate 20 12/18/19 07:20 Blood Pressure 140/71 12/18/19 07:20 O2 Sat by Pulse Oximetry (%) 98 12/18/19 07:20 Constitutional: Yes: Calm Eyes: Yes: Conjunctiva Clear HENT: Yes: Atraumatic Neck: Yes: Supple Cardiovascular: Yes: S1, S2 Respiratory: Yes: CTA Bilaterally Gastrointestinal: Yes: Soft Genitourinary: Yes: Goldstein Present Musculoskeletal: Yes: WNL Edema: No Neurological: Yes: Confusion Labs: CBC, BMP 12/18/19 07:35 12/18/19 07:35 Problem List - Problems (1) KARLO (acute kidney injury) Code(s): N17.9 - ACUTE KIDNEY FAILURE, UNSPECIFIED (2) AMS (altered mental status) Code(s): R41.82 - ALTERED MENTAL STATUS, UNSPECIFIED Qualifiers: Altered mental status type: disorientation Qualified Code(s): R41.0 - Disorientation, unspecified (3) UTI (urinary tract infection) Code(s): N39.0 - URINARY TRACT INFECTION, SITE NOT SPECIFIED Qualifiers: Urinary tract infection type: acute cystitis Hematuria presence: without hematuria Qualified Code(s): N30.00 - Acute cystitis without hematuria Assessment/Plan Current Medications Generic Name Dose Route Start Last Admin Trade Name Maricarmen PRN Reason Stop Dose Admin Amlodipine Besylate 10 mg 12/16/19 10:00 12/18/19 11:05 Norvasc - PO 10 mg DAILY GAURI Administration Heparin Sodium (Porcine) 5,000 unit 12/16/19 06:00 12/18/19 06:56 Heparin - SQ 5,000 unit TID GAURI Administration Ceftriaxone Sodium 2 gm/ 100 mls @ 100 mls/hr 12/17/19 05:00 12/18/19 11:06 Dextrose IVPB 100 mls/hr DAILY GAURI Administration Sodium Chloride 1,000 mls @ 100 mls/hr 12/16/19 16:57 12/17/19 16:45 Normal Saline - IV 100 mls/hr ASDIR GAURI Administration Potassium Phosphate 30 mm/ 510 mls @ 62.5 mls/hr 12/18/19 09:25 12/18/19 11:52 Sodium Chloride IVPB 12/18/19 17:34 62.5 mls/hr ONCE ONE Administration Mirtazapine 15 mg 12/18/19 22:00 Remeron - PO HS GAURI Potassium Chloride 40 meq 12/18/19 11:53 Potassium Chloride Oral Liquid PO 12/18/19 11:54 ONCE ONE Tamsulosin HCl 0.4 mg 12/16/19 08:30 12/18/19 11:05 Flomax - PO 0.4 mg DAILY@0830 GAURI Administration Impression 1. KARLO 2. hydronephrosis 3. urinary obstruction 4. weight loss 5. altered mental status 6. uti 7. htn 8. possible pancreatic mass Plan - renal function improving - can start to decrease fluids - replace potassium - can add potassium to fluids as well - repeat labs in am - check mag level - maintain goldstein
[2019-12-18] MEDS ORDERED: SODIUM CHLORIDE 1,000 ML with POTASSIUM CHLORIDE 10 MEQ IVPB SCH (11:56)
[2019-12-18] MEDS: POTASSIUM CHLORIDE 10 MEQ in SODIUM CHLORIDE 1,000 ML IVPB SCH (14:46)
--- NOTE | 2019-12-18 14:50 | PN ---
Progress Note, Physician History of Present Illness: events noted Chart reviewed No further neurological events. Carotid Doppler noted - Current Medication List Current Medications: Active Medications Amlodipine Besylate (Norvasc -) 10 mg PO DAILY [facility] Last Admin: 12/18/19 11:05 Dose: 10 mg Documented by: Heparin Sodium (Porcine) (Heparin -) 5,000 unit SQ TID [facility] Last Admin: 12/18/19 14:46 Dose: 5,000 unit Documented by: Ceftriaxone Sodium 2 gm/ (Dextrose) 100 mls @ 100 mls/hr IVPB DAILY [facility] Last Admin: 12/18/19 11:06 Dose: 100 mls/hr Documented by: Potassium Phosphate 30 mm/ (Sodium Chloride) 510 mls @ 62.5 mls/hr IVPB ONCE ONE Stop: 12/18/19 17:34 Last Admin: 12/18/19 11:52 Dose: 62.5 mls/hr Documented by: Potassium Chloride 10 meq/ (Sodium Chloride) 1,005 mls @ 75 mls/hr IVPB Q13H [facility] Last Admin: 12/18/19 14:46 Dose: 75 mls/hr Documented by: Mirtazapine (Remeron -) 15 mg PO HS [facility] Tamsulosin HCl (Flomax -) 0.4 mg PO DAILY@0830 [facility] Last Admin: 12/18/19 11:05 Dose: 0.4 mg Documented by: - Objective Vital Signs: Vital Signs Temperature 97.9 F 12/18/19 07:20 Pulse Rate 86 12/18/19 07:20 Respiratory Rate 20 12/18/19 07:20 Blood Pressure 140/71 12/18/19 07:20 O2 Sat by Pulse Oximetry (%) 98 12/18/19 07:20 Constitutional: Yes: Well Nourished Eyes: Yes: WNL HENT: Yes: WNL Neurological: Yes: Alert, Oriented, Babinski positive, Cran Nerves II-XII Intact Labs: CBC, BMP 12/18/19 07:35 12/18/19 07:35 Problem List - Problems (1) AMS (altered mental status) Assessment/Plan: hold off spinal tap. Repeat CAT scan of the head with no contrast. cancel the MRI. DVT prophylaxis. Follow-up with the director of nurses registry and infectious disease specialist Code(s): R41.82 - ALTERED MENTAL STATUS, UNSPECIFIED Qualifiers: Altered mental status type: disorientation Qualified Code(s): R41.0 - Disorientation, unspecified
--- NOTE | 2019-12-18 15:16 | PN ---
Physical Exam: SUBJECTIVE: Patient seen and examined at bedside. Patient was restless last night, received 5mg on haloperidol IM. Patient was sleeping. AAOx1, only to person. Patient is confused and mumbling this morning. OBJECTIVE: Vital Signs Period Temp Pulse Resp BP Sys/Odell Pulse Ox Last 24 Hr 96.3 F-98.7 F 83-94 18-20 129-146/67-79 97-100 GGENERAL: Awake, confused, and Ox1, in no acute distress. HEAD: Normal with no signs of trauma. EYES: Sclera anicteric, conjunctiva clear. No lid lag. NECK: Supple without lymphadenopathy, JVD, or Right soft tissue mass, movable, encapsulated. LUNGS: Breath sounds equal, clear to auscultation bilaterally. No wheezes, and no crackles. No accessory muscle use. HEART: Regular rate and rhythm, normal S1 and S2 without murmur, rub or gallop. ABDOMEN: Soft, nontender, not distended, normoactive bowel sounds, no guarding, no rebound, no masses. No hepatomegaly or splenomegaly. MUSCULOSKELETAL: Normal range of motion at all joints. No bony deformities or tenderness. No CVA tenderness. UPPER EXTREMITIES: 2+ pulses, warm, well-perfused. No cyanosis. No clubbing. No peripheral edema. LOWER EXTREMITIES: 2+ pulses, warm, well-perfused. No calf tenderness. No peripheral edema. NEUROLOGICAL: ox1, confused SKIN: Warm, dry Laboratory Results - last 24 hr 12/16/19 12/17/19 12/17/19 20:25 07:25 15:30 WBC RBC Hgb Hct MCV MCH MCHC RDW Plt Count MPV Absolute Neuts (auto) Neutrophils % Lymphocytes % Monocytes % Eosinophils % Basophils % Nucleated RBC % Sodium 139 Potassium 3.8 Chloride 103 Carbon Dioxide 23 Anion Gap 12 BUN 52.0 H Creatinine 2.4 H Est GFR (CKD-EPI)AfAm 27.48 Est GFR (CKD-EPI)NonAf 23.71 Random Glucose 105 Calcium 8.9 Phosphorus 2.6 Magnesium 2.1 Total Bilirubin 0.6 AST 73 H ALT 115 H Alkaline Phosphatase 80 Creatine Kinase 151 Creatine Kinase Index 3.0 CK-MB (CK-2) 4.6 H Total Protein 7.4 Albumin 2.5 L Lipase 354 Carcinoembryonic Ag 4.4 12/18/19 12/18/19 07:35 07:35 WBC 8.0 RBC 3.91 L Hgb 12.9 Hct 38.6 MCV 98.7 H MCH 32.9 MCHC 33.4 RDW 13.8 Plt Count 471 H MPV 7.7 Absolute Neuts (auto) 6.9 Neutrophils % 85.2 H Lymphocytes % 4.1 L D Monocytes % 9.0 Eosinophils % 1.4 Basophils % 0.3 Nucleated RBC % 0 Sodium 141 Potassium 3.3 L Chloride 110 H Carbon Dioxide 22 Anion Gap 9 BUN 24.5 H Creatinine 1.5 H Est GFR (CKD-EPI)AfAm 48.50 Est GFR (CKD-EPI)NonAf 41.85 Random Glucose 103 Calcium 8.5 Phosphorus 1.8 L Magnesium 1.5 L Total Bilirubin 0.8 AST 65 H ALT 95 H Alkaline Phosphatase 81 Creatine Kinase Creatine Kinase Index CK-MB (CK-2) Total Protein 7.4 Albumin 2.5 L Lipase Carcinoembryonic Ag Active Medications Generic Name Dose Route Start Last Admin Trade Name Freq PRN Reason Stop Dose Admin Amlodipine Besylate 10 mg 12/16/19 10:00 12/18/19 11:05 Norvasc - PO 10 mg DAILY GAURI Administration Heparin Sodium (Porcine) 5,000 unit 12/16/19 06:00 12/18/19 14:46 Heparin - SQ 5,000 unit TID GAURI Administration Ceftriaxone Sodium 2 gm/ 100 mls @ 100 mls/hr 12/17/19 05:00 12/18/19 11:06 Dextrose IVPB 100 mls/hr DAILY GAURI Administration Potassium Phosphate 30 mm/ 510 mls @ 62.5 mls/hr 12/18/19 09:25 12/18/19 11:52 Sodium Chloride IVPB 12/18/19 17:34 62.5 mls/hr ONCE ONE Administration Potassium Chloride 10 meq/ 1,005 mls @ 75 mls/hr 12/18/19 12:03 12/18/19 14:46 Sodium Chloride IVPB 75 mls/hr Q13H GAURI Administration Mirtazapine 15 mg 12/18/19 22:00 Remeron - PO HS GAURI Tamsulosin HCl 0.4 mg 12/16/19 08:30 12/18/19 11:05 Flomax - PO 0.4 mg DAILY@0830 GAURI Administration 8/24: CTAB: Postsurgical changes left lobe of the liver. There is heavy jennifer cification within the right lobe of the liver versus metallic density. Correlate with prior intervention. Questionable pancreatic mass, consider abdominal/pelvic CT with intravenous contrast media or MR imaging. Collection in the lower pole and medial of the left kidney as described above. Findings could represent sequela from prior instrumentation, calyceal rupture from prior hydronephrosis, correlate with history. Perinephric stranding is identified. Hyperdense lesion within the lower pole of the left kidney as discussed above, consider ultrasound imaging for further assessment as clinically warranted. Postsurgical clips within the right colon, correlate with prior surgery. Enlarged prostate gland with a Goldstein catheter in place. ASSESSMENT/PLAN: Denis Morrison Jr is a 84 Y M with a PMH of HTN presented to ER with his for 2 weeks of worsening altered mental status, confusion, decreased PO intake, 15 lbs weight loss, difficulty ambulating. Admitted for sepsis 2/2 to acute complicated cystitis #Acute Metabolic encephalopathy 2/2 UTI - UA Positive for UTI, Urine Cx - Klebsiella, - pt is AAOx1, confused, AAOx3 at baseline - No evidence of acute intracranial pathology on noncontrast head CT scan though it is reported as suboptimal study. - Pelvic/Bladder and Kidney u/s: Mild bilateral hydronephrosis, Over distended urinary bladder with retention - Carotid Duplex - moderate atherosclerotic disease, no hemodynamically significant stenosis - CTAB as noted above - Continue Goldstein and monitor I&O - Continue Flomax - Continue Ceftriaxone - Trial of Remeron at night - Neurology Dr. Gomes on Board: Repeat CAT scan of the head with no contrast. - f/u repeat CT head and soft tissue neck # b/l Hydronephrosis w possible abscess - CTAB: fluid near the lower pole of the left kidney. A collection inferior and medial to the lower pole of the left kidney measures 5 x 4 x 4.5 cm. - Pelvic/Bladder and Kidney u/s: Mild bilateral hydronephrosis, Over distended urinary bladder with retention - Urology consulted (Camila Xie), pending recs #KARLO: - May be 2/2 Bactrim toxicity vs UTI vs enlarged prostate vs hydronephrosis. - Bactrim was given 9days ago, off of bactrim now - BUN/Crea improving 24.5/1.5 - Pelvic/Bladder and Kidney u/s: Mild bilateral hydronephrosis, Over distended urinary bladder with retention - Gentle hydration, monitor urine output - repleted electrolytes, continue to monitor - Nephrology on board (Dr. read): renal function improving, can start to decrease fluids replace potassium can add potassium to fluids as well repeat labs in am check mag level maintain goldstein #Pancreatic Mass - CTAB: Questionable pancreatic mass, consider abdominal/pelvic CT with intravenous contrast media or MR imaging. - weight loss + anorexia - Pending tumor markers, patient may need MRI evaluation to evaluate for the mass - GI consulted (Dr. Alvarez), Recs: -Will need contrast imaging of the pancreas (MRI or CT scan of abdomen with pancreatic protocol). If current renal function precludes contrast MRI or CT scan imaging of the pancreas, patient can be transferred to a facility where EUS could be performed and where he can be assessed by a heptobiliary team. - f/u Lipase #TRANSAMINITIS: - Possibly 2/2 to Pancreatic Mass - will continue to monitor - Avoid hepatotoxic agents - f/u CPK for evaluation of Rhabdomyolysis #HTN: - Continue Norvasc 10mg daily #Hypokalemia #Hypomagnesemia #Hypophosphatemia - repleted. #R. neck mobile subcutaneous mass - CT neck ordered - out pt ENT evaluation #FEN: - Gentle hydration - Continue to monitor electrolytes - Soft diet when tolerated #DVT prophylaxis - Heparin 5000u sq tid. #DISPOSITION: - Continue to monitor in [place] Visit type - Emergency Visit Emergency Visit: Yes ED Registration Date: 12/16/19 Care time: The patient presented to the Emergency Department on the above date and was hospitalized for further evaluation of their emergent condition. - New Patient This patient is new to me today: Yes Date on this admission: 12/22/19 - Critical Care Critical Care patient: No - Discharge Referral [facility]erred to [facility] Med [facility] No - Medication Review Med list reviewed for High Risk Meds patients 65 and older: Yes ATTENDING PHYSICIAN STATEMENT I saw and evaluated the patient. I reviewed the resident's note and discussed the case with the resident. I agree with the resident's findings and plan as documented. SUBJECTIVE: OBJECTIVE: ASSESSMENT AND PLAN:
--- NOTE | 2019-12-18 17:46 | PN ---
Teaching Attending Note Name of Resident: Yusra Dominguez ATTENDING PHYSICIAN STATEMENT I saw and evaluated the patient. I reviewed the resident's note and discussed the case with the resident. I agree with the resident's findings and plan as documented. SUBJECTIVE: Feeling well, no complaints. Confused/agitated overnight requiring Haldol. OBJECTIVE: Afebrile, Hemodynamically stable. AAO x 1-2 Last Vital Signs Temp Pulse Resp BP Pulse Ox 98 F 84 20 146/69 97 12/18/19 15:00 12/18/19 15:00 12/18/19 15:00 12/18/19 15:00 12/18/19 15:00 HEENT - Atraumatic, L neck mobile subcutaneous mass (non-tender) Heart - S1, S2, SM Lungs - clear to auscultation Abdomen - soft, non-tender. Bowel Sounds normal. Extremities - no edema, no calf tenderness. Neuro - AAO x 1-2. Moving all 4 extremities. - goldstein in situ draining clear urine. Laboratory Results - last 24 hr 12/16/19 12/17/19 12/18/19 20:25 07:25 07:35 WBC 8.0 RBC 3.91 L Hgb 12.9 Hct 38.6 MCV 98.7 H MCH 32.9 MCHC 33.4 RDW 13.8 Plt Count 471 H MPV 7.7 Absolute Neuts (auto) 6.9 Neutrophils % 85.2 H Lymphocytes % 4.1 L D Monocytes % 9.0 Eosinophils % 1.4 Basophils % 0.3 Nucleated RBC % 0 Sodium 139 Potassium 3.8 Chloride 103 Carbon Dioxide 23 Anion Gap 12 BUN 52.0 H Creatinine 2.4 H Est GFR (CKD-EPI)AfAm 27.48 Est GFR (CKD-EPI)NonAf 23.71 Random Glucose 105 Calcium 8.9 Phosphorus 2.6 Magnesium 2.1 Total Bilirubin 0.6 AST 73 H ALT 115 H Alkaline Phosphatase 80 Total Protein 7.4 Albumin 2.5 L Lipase 354 Carcinoembryonic Ag 4.4 12/18/19 07:35 WBC RBC Hgb Hct MCV MCH MCHC RDW Plt Count MPV Absolute Neuts (auto) Neutrophils % Lymphocytes % Monocytes % Eosinophils % Basophils % Nucleated RBC % Sodium 141 Potassium 3.3 L Chloride 110 H Carbon Dioxide 22 Anion Gap 9 BUN 24.5 H Creatinine 1.5 H Est GFR (CKD-EPI)AfAm 48.50 Est GFR (CKD-EPI)NonAf 41.85 Random Glucose 103 Calcium 8.5 Phosphorus 1.8 L Magnesium 1.5 L Total Bilirubin 0.8 AST 65 H ALT 95 H Alkaline Phosphatase 81 Total Protein 7.4 Albumin 2.5 L Lipase Carcinoembryonic Ag Current Medications Generic Name Dose Route Start Last Admin Trade Name Freq PRN Reason Stop Dose Admin Amlodipine Besylate 10 mg 12/16/19 10:00 12/18/19 11:05 Norvasc - PO 10 mg DAILY GAURI Administration Heparin Sodium (Porcine) 5,000 unit 12/16/19 06:00 12/18/19 14:46 Heparin - SQ 5,000 unit TID GAURI Administration Ceftriaxone Sodium 2 gm/ 100 mls @ 100 mls/hr 12/17/19 05:00 12/18/19 11:06 Dextrose IVPB 100 mls/hr DAILY GAURI Administration Potassium Chloride 10 meq/ 1,005 mls @ 75 mls/hr 12/18/19 12:03 12/18/19 14:46 Sodium Chloride IVPB 75 mls/hr Q13H GAURI Administration Mirtazapine 15 mg 12/18/19 22:00 Remeron - PO HS GUARI Tamsulosin HCl 0.4 mg 12/16/19 08:30 12/18/19 11:05 Flomax - PO 0.4 mg DAILY@0830 GAURI Administration Home Medications Medication Instructions Recorded Allopurinol [Zyloprim -] 100 mg PO DAILY 08/14/18 Amlodipine Besylate 10 mg PO DAILY 08/14/18 Hydrochlorothiazide [Hctz -] 25 mg PO DAILY 12/15/19 Tamsulosin HCl 0.4 mg PO DAILY 12/15/19 ASSESSMENT AND PLAN: 84 year old male with history of Gout, HTN, presents with confusion, weakness, decreased oral intake, increased urinary frequency and dysuria. 1. Acute Metabolic Encephalopathy secondary to UTI/Uremia AAO x 1-2, normal at baseline as per . CT head - no acute findings. Carotid Duplex - moderate atherosclerotic disease, no hemodynamically significant stenosis. Neurology recommends repeat CT head. Trial of Remeron at night. Urine Cx - Klebsiella, Continue Ceftriaxone. Afebrile. 2. KARLO secondary to obstructive Uropathy Bilateral Hydronephrosis on Renal US, enlarged Prostate on CT with PSA 33.6 Creat much improved s/p goldstein insertion - creat down to 1.5 from 6.4 Nephrology following, IV fluids rate reduced. Urology recommend Cystoscopy once more stable/resolution of KARLO. Continue Tamsulosin and IV hydration - further recommendations as per Urology. 3. L Renal collection - ?etiology Urology for further eval and recommendations 4. Pancreatic Mass (possible), incidental finding on CT A/P MRCP ordered. 5. Elevated LFTs ?etiology - appears to be improving. Hepatitis work-up as per GI Further recommendations as per GI. 6. HTN - HCTZ held due to KARLO. continue Norvasc. 7. Hypokalemia/Hypomagnesemia/Hypophosphatemia - repleted. 8. L neck mobile subcutaneous mass (non-tender) - further eval as out-patient. Will refer to ENT as out-patient. DVT Px - Heparin SQ
[2019-12-18] MEDS ORDERED: MIRTAZAPINE 15 MG TABLET (FP) PO SCH (22:00)
--- NOTE | 2019-12-18 22:25 | PN ---
Progress Note (short form) - Note Progress Note: UROLOGY NOTE. PT. WITH DE LOS SANTOS,URINE IS CLEAR, BUN/CREAT.=25/1.5, WBC=8,000, ABD- SOFT, N/T,BS++, PLAN-CYSTO WHEN MED. OK.
[2019-12-19] MEDS ORDERED: HALOPERIDOL LACTATE 5 MG/ML IM ONE (00:25)
[2019-12-19] MEDS: POTASSIUM CHLORIDE 10 MEQ in SODIUM CHLORIDE 1,000 ML IVPB SCH ×3 (01:42→21:10)
[2019-12-19] MEDS: HEPARIN NA (PORCINE) 5,000 UNITS/ML 1ML VIAL SQ SCH ×3 (06:11→21:10)
[2019-12-19 08:12] LABS: BASO % 0.9 % (0-2.0); EOS % 2.6 % (0-4.5); HEMATOCRIT 36.9 % (35.4-49); HEMOGLOBIN 12.5 GM/dL (11.7-16.9); LYMPH % 10.2 % (8-40); MCH 33.5 pg (25.7-33.7); MEAN CELL VOLUME 98.5 fl (80-96); MEAN PLT VOLUME 7.8 fl (7.5-11.1); MONO % 11.3 % (3.8-10.2); PLATELET COUNT 454 K/MM3 (134-434); RBC 3.74 M/mm3 (4.00-5.60); RDW 13.7 % (11.9-15.9); WHITE BLOOD COUNT 8.7 K/mm3 (4.0-10.0)
--- NOTE | 2019-12-19 08:14 | PN ---
Progress Note (short form) - Note Progress Note: CA 19-9 elevated. Will need further contrast imaging of the pancreas with MRI when renal function permits. If renal function precludes this, transfer for EUS. Problem List - Problems (1) Pancreatic mass Code(s): K86.89 - OTHER SPECIFIED DISEASES OF PANCREAS (2) Transaminitis Code(s): R74.0 - NONSPEC ELEV OF LEVELS OF TRANSAMNS & LACTIC ACID DEHYDRGNSE
[2019-12-19 08:45] LABS: ALBUMIN 2.5 g/dl (3.4-5.0); BILIRUBIN,TOTAL 0.5 mg/dL (0.2-1); BLOOD UREA NITROGEN 14.4 mg/dL (7-18); CALCIUM 8.4 mg/dL (8.5-10.1); CREATININE 1.2 mg/dL (0.55-1.3); MAGNESIUM 1.7 mg/dL (1.8-2.4); PHOSPHOROUS 2.3 mg/dL (2.5-4.9); POTASSIUM 4.1 mmol/L (3.5-5.1)
[2019-12-19] MEDS ORDERED: MAGNESIUM 2GM/50ML STERILE WATER IVPB IVPB ONE (09:15)
[2019-12-19] MEDS ORDERED: POTASSIUM PHOSPHATE 15 MM in SODIUM CHLORIDE 250 ML IVPB ONE (10:00)
[2019-12-19] MEDS ORDERED: PT OWN MED DRAWER 7, Y5N ONE ×3 (10:41→21:07)
[2019-12-19] MEDS ORDERED: DEXTROSE 5%-WATER 100 ML IVPB ONE (10:42)
[2019-12-19] MEDS: amLODIPine BESYLATE 10 MG TABLET (FP) PO SCH (10:45)
[2019-12-19] MEDS: TAMSULOSIN HCL 0.4 MG CAP PO SCH (10:45)
[2019-12-19] MEDS: CEFTRIAXONE 2 GM in DEXTROSE 5%-WATER 100 ML IVPB SCH (10:45)
--- NOTE | 2019-12-19 11:07 | PN ---
Progress Note, GROUP CHIEF OPERATOR - Note Progress Note: Per GI- CA 19-9 elevated. Will need further contrast imaging of the pancreas with MRI when renal function permits Selected Entries 12/18/19 12/18/19 12/19/19 15:00 19:00 06:00 Breakfast 0 Diet Tolerated Fair Well Lunch 25% Supper 100% Temperature 99 F Pulse Rate 96 H Blood Pressure 143/89 Laboratory Tests 12/16/19 11:13 CA 19-9 Antigen 121 H Diet order soft, receiving chopped. Fair intake. Good tolerance
--- NOTE | 2019-12-19 13:52 | PN ---
Teaching Attending Note Name of Resident: Yusra Dominguez ATTENDING PHYSICIAN STATEMENT I saw and evaluated the patient. I reviewed the resident's note and discussed the case with the resident. I agree with the resident's findings and plan as documented. SUBJECTIVE: Feeling well, no complaints. Confused/agitated overnight requiring Haldol, now AAO x 3. OBJECTIVE: Afebrile, Hemodynamically stable. AAO x 3. Last Vital Signs Temp Pulse Resp BP Pulse Ox 99 F 96 H 20 143/89 100 12/19/19 06:00 12/19/19 06:00 12/19/19 06:00 12/19/19 06:00 12/19/19 06:00 HEENT - Atraumatic, L neck mobile subcutaneous mass (non-tender) Heart - S1, S2, SM Lungs - clear to auscultation Abdomen - soft, non-tender. Bowel Sounds normal. Extremities - no edema, no calf tenderness. Neuro - AAO x 3 Moving all 4 extremities. - goldstein in situ draining clear urine. Laboratory Results - last 24 hr 12/18/19 12/19/19 12/19/19 10:38 07:00 07:00 WBC 8.7 RBC 3.74 L Hgb 12.5 Hct 36.9 MCV 98.5 H MCH 33.5 MCHC 34.0 RDW 13.7 Plt Count 454 H MPV 7.8 Absolute Neuts (auto) 6.5 Neutrophils % 75.0 Lymphocytes % 10.2 D Monocytes % 11.3 H Eosinophils % 2.6 D Basophils % 0.9 Nucleated RBC % 0 Sodium 144 Potassium 4.1 Chloride 114 H Carbon Dioxide 21 Anion Gap 8 BUN 14.4 Creatinine 1.2 Est GFR (CKD-EPI)AfAm 63.52 Est GFR (CKD-EPI)NonAf 54.81 Random Glucose 75 Calcium 8.4 L Phosphorus 2.3 L Magnesium 1.7 L Total Bilirubin 0.5 AST 59 H ALT 78 H Alkaline Phosphatase 82 Total Protein 7.0 Albumin 2.5 L Hep A IgM Ab Confirm Negative Hep Bs Antigen Negative Hep B Core IgM Ab Negative Hepatitis C Ab (EIA) 0.1 Current Medications Generic Name Dose Route Start Last Admin Trade Name Freq PRN Reason Stop Dose Admin Amlodipine Besylate 10 mg 12/16/19 10:00 12/19/19 10:45 Norvasc - PO 10 mg DAILY GAURI Administration Heparin Sodium (Porcine) 5,000 unit 12/16/19 06:00 12/19/19 06:11 Heparin - SQ 5,000 unit TID GAURI Administration Ceftriaxone Sodium 2 gm/ 100 mls @ 100 mls/hr 12/17/19 05:00 12/19/19 10:45 Dextrose IVPB 100 mls/hr DAILY GAURI Administration Potassium Chloride 10 meq/ 1,005 mls @ 75 mls/hr 12/18/19 12:03 12/19/19 01:42 Sodium Chloride IVPB Not Given Q13H GAURI Potassium Phosphate 15 mm/ 255 mls @ 63.75 mls/hr 12/19/19 10:00 12/19/19 12:37 Sodium Chloride IVPB 12/19/19 13:59 63.75 mls/hr ONCE ONE Administration 15 MM/4 HR Mirtazapine 15 mg 12/18/19 22:00 12/18/19 21:02 Remeron - PO 15 mg HS GAURI Administration Tamsulosin HCl 0.4 mg 12/16/19 08:30 12/19/19 10:45 Flomax - PO 0.4 mg DAILY@0830 GAURI Administration Home Medications Medication Instructions Recorded Allopurinol [Zyloprim -] 100 mg PO DAILY 08/14/18 Amlodipine Besylate 10 mg PO DAILY 08/14/18 Hydrochlorothiazide [Hctz -] 25 mg PO DAILY 12/15/19 Tamsulosin HCl 0.4 mg PO DAILY 12/15/19 ASSESSMENT AND PLAN: 84 year old male with history of Gout, HTN, presents with confusion, weakness, decreased oral intake, increased urinary frequency and dysuria. 1. Acute Metabolic Encephalopathy secondary to UTI/Uremia AAO x 1-2, normal at baseline as per . CT head - no acute findings. Repeat CT - no changes, moderate volume loss/ventricular dilatation/microvascular ischemic changes. Carotid Duplex - moderate atherosclerotic disease, no hemodynamically significant stenosis. Trial of Remeron last night did not work, will attempt Seroquel if QTc ok. Urine Cx - Klebsiella, Continue Ceftriaxone. Afebrile. 2. KARLO secondary to Obstructive Uropathy Bilateral Hydronephrosis on Renal US, enlarged Prostate on CT with PSA 33.6 Creat much improved s/p goldstein insertion - creat down to 1.2 from 6.4 Nephrology following, IV fluids rate reduced. Urology recommends Cystoscopy, likely tomorrow after repeat Renal US. Continue Tamsulosin and IV hydration - further recommendations as per Urology. 3. L Renal collection - ?etiology Urology recommends repeat US and possible IR consult for intervention depending on US findings. 4. Pancreatic Mass (possible), incidental finding on CT A/P CA 19/9 elevated. MRCP ordered as per GI recommendations - not being done by Radiology as felt to be an out-patient investigation. 5. Elevated LFTs ?etiology - improving. Hepatitis work-up negative Further recommendations as per GI. 6. HTN - HCTZ held due to KARLO. continue Norvasc. 7. Hypokalemia/Hypomagnesemia/Hypophosphatemia - repleted. 8. L neck mobile subcutaneous mass (non-tender) - awaiting CT Neck report, likely out-patient ENT eval. DVT Px - Heparin SQ
--- NOTE | 2019-12-19 15:21 | PN ---
Physical Exam: SUBJECTIVE: Patient seen and examined at bedside. Patient was restless again last night, Pt recieved rameron and received 5mg on haloperidol IM. Patient was sleeping. AAOx1, only to person. Patient is confused and mumbling this morning. OBJECTIVE: Vital Signs Period Temp Pulse Resp BP Sys/Odell Pulse Ox Last 24 Hr 98.0 F-99 F 88-96 18-20 137-153/63-89 98-100 GENERAL: Awake, confused, and Ox1, in no acute distress. HEAD: Normal with no signs of trauma. EYES: Sclera anicteric, conjunctiva clear. No lid lag. NECK: Supple without lymphadenopathy, JVD, or Right soft tissue mass, movable, encapsulated. LUNGS: Breath sounds equal, clear to auscultation bilaterally. No wheezes, and no crackles. No accessory muscle use. HEART: Regular rate and rhythm, normal S1 and S2 without murmur, rub or gallop. ABDOMEN: Soft, nontender, not distended, normoactive bowel sounds, no guarding, no rebound, no masses. No hepatomegaly or splenomegaly. MUSCULOSKELETAL: Normal range of motion at all joints. No bony deformities or tenderness. No CVA tenderness. UPPER EXTREMITIES: 2+ pulses, warm, well-perfused. No cyanosis. No clubbing. No peripheral edema. LOWER EXTREMITIES: 2+ pulses, warm, well-perfused. No calf tenderness. No peripheral edema. NEUROLOGICAL: ox1, confused SKIN: Warm, dry Laboratory Results - last 24 hr 12/18/19 12/19/19 12/19/19 10:38 07:00 07:00 WBC 8.7 RBC 3.74 L Hgb 12.5 Hct 36.9 MCV 98.5 H MCH 33.5 MCHC 34.0 RDW 13.7 Plt Count 454 H MPV 7.8 Absolute Neuts (auto) 6.5 Neutrophils % 75.0 Lymphocytes % 10.2 D Monocytes % 11.3 H Eosinophils % 2.6 D Basophils % 0.9 Nucleated RBC % 0 Sodium 144 Potassium 4.1 Chloride 114 H Carbon Dioxide 21 Anion Gap 8 BUN 14.4 Creatinine 1.2 Est GFR (CKD-EPI)AfAm 63.52 Est GFR (CKD-EPI)NonAf 54.81 Random Glucose 75 Calcium 8.4 L Phosphorus 2.3 L Magnesium 1.7 L Total Bilirubin 0.5 AST 59 H ALT 78 H Alkaline Phosphatase 82 Total Protein 7.0 Albumin 2.5 L Hep A IgM Ab Confirm Negative Hep Bs Antigen Negative Hep B Core IgM Ab Negative Hepatitis C Ab (EIA) 0.1 Active Medications Generic Name Dose Route Start Last Admin Trade Name Maricarmen PRN Reason Stop Dose Admin Amlodipine Besylate 10 mg 12/16/19 10:00 12/19/19 10:45 Norvasc - PO 10 mg DAILY GAURI Administration Heparin Sodium (Porcine) 5,000 unit 12/16/19 06:00 12/19/19 14:06 Heparin - SQ 5,000 unit TID GAURI Administration Ceftriaxone Sodium 2 gm/ 100 mls @ 100 mls/hr 12/17/19 05:00 12/19/19 10:45 Dextrose IVPB 100 mls/hr DAILY GAURI Administration Potassium Chloride 10 meq/ 1,005 mls @ 75 mls/hr 12/18/19 12:03 12/19/19 01:42 Sodium Chloride IVPB Not Given Q13H GAURI Tamsulosin HCl 0.4 mg 12/16/19 08:30 12/19/19 10:45 Flomax - PO 0.4 mg DAILY@0830 GAURI Administration 12/15: CTAB: Postsurgical changes left lobe of the liver. There is heavy calcification within the right lobe of the liver versus metallic density. Correlate with prior intervention. Questionable pancreatic mass, consider abdominal/pelvic CT with intravenous contrast media or MR imaging. Collection in the lower pole and medial of the left kidney as described above. Findings could represent sequela from prior ins trumentation, calyceal rupture from prior hydronephrosis, correlate with history. Perinephric stranding is identified. Hyperdense lesion within the lower pole of the left kidney as discussed above, consider ultrasound imaging for further assessment as clinically warranted. Postsurgical clips within the right colon, correlate with prior surgery. Enlarged prostate gland with a Campbell catheter in place. ASSESSMENT/PLAN: Denis Morrison Jr is a 84 Y M with a PMH of HTN presented to ER with his for 2 weeks of worsening altered mental status, confusion, decreased PO intake, 15 lbs weight loss, difficulty ambulating. Admitted for sepsis 2/2 to acute complicated cystitis #Acute Metabolic encephalopathy 2/2 UTI - UA Positive for UTI, Urine Cx - Klebsiella, - pt is AAOx1, confused, AAOx3 at baseline - No evidence of acute intracranial pathology on noncontrast head CT scan though it is reported as suboptimal study. - Pelvic/Bladder and Kidney u/s: Mild bilateral hydronephrosis, Over distended urinary bladder with retention - Carotid Duplex - moderate atherosclerotic disease, no hemodynamically significant stenosis - CTAB as noted above - Continue Campbell and monitor I&O - Continue Flomax - Continue Ceftriaxone - Trial of Remeron at night, did not work, pt was still restless and awake, will consider seroquel if Qtc is wnl - Neurology Dr. Gomes on Board: Repeat CAT scan of the head with no contrast. - CT head: No acute pathology, Mod volume loss w/ ventricular Dilation. Chronic microvascular ischemic changes - Soft tissue neck: pending read # b/l Hydronephrosis w Fluid collection - CTAB: fluid near the lower pole of the left kidney. A collection inferior and medial to the lower pole of the left kidney measures 5 x 4 x 4.5 cm. - Pelvic/Bladder and Kidney u/s: Mild bilateral hydronephrosis, Over distended urinary bladder with retention - Urology consulted (Dr. Bradford, Camila): Repeat US and possible IR consult for intervention depending on US findings Cystoscopy, likely tomorrow after repeat Renal US #KARLO: - 2/2 enlarged prostate, enlarged Prostate on CT with PSA 33.6 - BUN/Crea improving 24.5/1.5 to 14.4/1.2 - Pelvic/Bladder and Kidney u/s: Mild bilateral hydronephrosis, Over distended urinary bladder with retention - repleted electrolytes, continue to monitor - Urology recommends Cystoscopy, likely tomorrow after repeat Renal US. - Nephrology on board (Dr. read): reduced IV fluid rate - Continue tamsulosin #Pancreatic Mass - CTAB: Questionable pancreatic mass, consider abdominal/pelvic CT with intravenous contrast media or MR imaging. - weight loss + anorexia - CA 19/9 elevated - GI consulted (Dr. Alvarez), Recs: -Will need contrast imaging of the pancreas (MRI or CT scan of abdomen with pancreatic protocol). - MRCP ordered as per GI recommendations: Not completed by radiology #TRANSAMINITIS: - unkonw etiology Possibly 2/2 to Pancreatic Mass - will continue to monitor - Avoid hepatotoxic agents - improving - Negative hep panel #HTN: - Continue Norvasc 10mg daily #Hypokalemia #Hypomagnesemia #Hypophosphatemia - repleted. #R. neck mobile subcutaneous mass - CT neck: Pending read - out pt ENT evaluation #FEN: - Gentle hydration - Continue to monitor electrolytes - Soft diet when tolerated #DVT prophylaxis - Heparin 5000u sq tid. #DISPOSITION: - Continue to monitor in [place] Visit type - Emergency Visit Emergency Visit: Yes ED Registration Date: 12/16/19 Care time: The patient presented to the Emergency Department on the above date and was hospitalized for further evaluation of their emergent condition. - New Patient This patient is new to me today: Yes Date on this admission: 12/22/19 - Critical Care Critical Care patient: No - Discharge Referral Referred to [facility] No - Medication Review Med list reviewed for High Risk Meds patients 65 and older: Yes ATTENDING PHYSICIAN STATEMENT I saw and evaluated the patient. I reviewed the resident's note and discussed the case with the resident. I agree with the resident's findings and plan as documented. SUBJECTIVE: OBJECTIVE: ASSESSMENT AND PLAN:
--- NOTE | 2019-12-19 16:59 | PN ---
Progress Note, Physician History of Present Illness: Pt seen and examined at bedside. He is awake and appears comfortable. He remains confused. - Current Medication List Current Medications: Active Medications Amlodipine Besylate (Norvasc -) 10 mg PO DAILY [facility] Last Admin: 12/19/19 10:45 Dose: 10 mg Documented by: Heparin Sodium (Porcine) (Heparin -) 5,000 unit SQ TID [facility] Last Admin: 12/19/19 14:06 Dose: 5,000 unit Documented by: Ceftriaxone Sodium 2 gm/ (Dextrose) 100 mls @ 100 mls/hr IVPB DAILY [facility] Last Admin: 12/19/19 10:45 Dose: 100 mls/hr Documented by: Potassium Chloride 10 meq/ (Sodium Chloride) 1,005 mls @ 75 mls/hr IVPB Q13H [facility] Last Admin: 12/19/19 01:42 Dose: Not Given Documented by: Tamsulosin HCl (Flomax -) 0.4 mg PO DAILY@0830 [facility] Last Admin: 12/19/19 10:45 Dose: 0.4 mg Documented by: - Objective Vital Signs: Vital Signs Temperature 97.5 F L 12/19/19 14:00 Pulse Rate 86 12/19/19 14:00 Respiratory Rate 20 12/19/19 14:00 Blood Pressure 124/69 12/19/19 14:00 O2 Sat by Pulse Oximetry (%) 98 12/19/19 14:00 Constitutional: Yes: Calm Eyes: Yes: Conjunctiva Clear HENT: Yes: Atraumatic Neck: Yes: Supple Cardiovascular: Yes: S1, S2 Respiratory: Yes: CTA Bilaterally Gastrointestinal: Yes: Normal Bowel Sounds, Soft Genitourinary: Yes: Goldstein Present Musculoskeletal: Yes: WNL Edema: No Neurological: Yes: Confusion Psychiatric: Yes: Oriented Labs: CBC, BMP 12/19/19 07:00 12/19/19 07:00 Problem List - Problems (1) KALRO (acute kidney injury) Code(s): N17.9 - ACUTE KIDNEY FAILURE, UNSPECIFIED (2) AMS (altered mental status) Code(s): R41.82 - ALTERED MENTAL STATUS, UNSPECIFIED Qualifiers: Altered mental status type: disorientation Qualified Code(s): R41.0 - Disorientation, unspecified (3) UTI (urinary tract infection) Code(s): N39.0 - URINARY TRACT INFECTION, SITE NOT SPECIFIED Qualifiers: Urinary tract infection type: acute cystitis Hematuria presence: without hematuria Qualified Code(s): N30.00 - Acute cystitis without hematuria Assessment/Plan Current Medications Generic Name Dose Route Start Last Admin Trade Name Maricarmen PRN Reason Stop Dose Admin Amlodipine Besylate 10 mg 12/16/19 10:00 12/19/19 10:45 Norvasc - PO 10 mg DAILY GAURI Administration Heparin Sodium (Porcine) 5,000 unit 12/16/19 06:00 12/19/19 14:06 Heparin - SQ 5,000 unit TID GAURI Administration Ceftriaxone Sodium 2 gm/ 100 mls @ 100 mls/hr 12/17/19 05:00 12/19/19 10:45 Dextrose IVPB 100 mls/hr DAILY GAURI Administration Potassium Chloride 10 meq/ 1,005 mls @ 75 mls/hr 12/18/19 12:03 12/19/19 01:42 Sodium Chloride IVPB Not Given Q13H GAURI Tamsulosin HCl 0.4 mg 12/16/19 08:30 12/19/19 10:45 Flomax - PO 0.4 mg DAILY@0830 GAURI Administration Impression 1. KARLO 2. hydronephrosis 3. urinary obstruction 4. weight loss 5. altered mental status 6. uti 7. htn 8. possible pancreatic mass Plan - replace lytes - renal function is improving - cont to monitor renal function - goldstein in place - urology follow up appreciated - replace mag - maintain goldstein
[2019-12-19] MEDS ORDERED: MELATONIN 5 MG TABLETS PO PRN (18:18)
[2019-12-19] MEDS ORDERED: MAGNESIUM OXIDE 400 MG TABLET (FP) PO ONE (18:19)
[2019-12-19] MEDS ORDERED: diphenhydrAMINE HCL 25 MG CAPSULE (FP) PO SCH (22:00)
[2019-12-20] MEDS: POTASSIUM CHLORIDE 10 MEQ in SODIUM CHLORIDE 1,000 ML IVPB SCH (02:14)
[2019-12-20] MEDS: HEPARIN NA (PORCINE) 5,000 UNITS/ML 1ML VIAL SQ SCH (05:08)
[2019-12-20 07:59] LABS: BASO % 0.6 % (0-2.0); EOS % 1.9 % (0-4.5); HEMATOCRIT 38.4 % (35.4-49); HEMOGLOBIN 12.7 GM/dL (11.7-16.9); MCH 32.4 pg (25.7-33.7); MCHC 33.1 g/dl (32.0-35.9); MEAN PLT VOLUME 7.7 fl (7.5-11.1); MONO % 8.5 % (3.8-10.2); PLATELET COUNT 433 K/MM3 (134-434); RBC 3.92 M/mm3 (4.00-5.60); RDW 13.9 % (11.9-15.9); WHITE BLOOD COUNT 8.7 K/mm3 (4.0-10.0)
[2019-12-20 08:13] LABS: ALBUMIN 2.7 g/dl (3.4-5.0); BILIRUBIN,TOTAL 0.6 mg/dL (0.2-1); BLOOD UREA NITROGEN 9.4 mg/dL (7-18); CALCIUM 8.6 mg/dL (8.5-10.1); CREATININE 1.1 mg/dL (0.55-1.3); MAGNESIUM 1.8 mg/dL (1.8-2.4); PHOSPHOROUS 1.8 mg/dL (2.5-4.9); POTASSIUM 3.8 mmol/L (3.5-5.1); TOT PROT 7.2 g/dl (6.4-8.2)
[2019-12-20] MEDS ORDERED: MAGNESIUM SULF 50% (8.12 MEQ/2 ML-1 GM VIAL) IVPB ONE (09:06)
[2019-12-20] MEDS: TAMSULOSIN HCL 0.4 MG CAP PO SCH (09:44)
[2019-12-20] MEDS: amLODIPine BESYLATE 10 MG TABLET (FP) PO SCH (09:46)
[2019-12-20] MEDS ORDERED: POTASSIUM PHOSPHATE 30 MM in SODIUM CHLORIDE 500 ML IVPB ONE (10:00)
[2019-12-20] MEDS ORDERED: MAGNESIUM 1GM/D5W - 1 GM/100 ML IVPB IVPB ONE (10:00)
--- NOTE | 2019-12-20 11:05 | EKG ---
Test Reason : Blood Pressure : / mmHG Vent. Rate : 084 BPM Atrial Rate : 084 BPM P-R Int : 142 ms QRS Dur : 072 ms QT Int : 388 ms P-R-T Axes : 028 -45 061 degrees QTc Int : 458 ms NORMAL SINUS RHYTHM LEFT ANTERIOR FASCICULAR BLOCK NONSPECIFIC T WAVE ABNORMALITY ABNORMAL ECG WHEN COMPARED WITH ECG OF 15-DEC-2019 23:15, PREMATURE ATRIAL COMPLEXES ARE NO LONGER PRESENT T WAVE INVERSION NOW EVIDENT IN ANTERIOR LEADS Confirmed by RODRIGO LANGLEY MD ([id number]) on 12/20/2019 11:04:49 AM Referred By: Confirmed By:RODRIGO LANGLEY MD
--- NOTE | 2019-12-20 11:30 | PN ---
Progress Note (short form) - Note Progress Note: Came to see patient. In OR, having urological procedure. will need evaluation of the pancreatic mass, with contrast imaging when able. ideally MRI of the pancreas with pancreatic protocol. Problem List - Problems (1) Pancreatic mass Code(s): K86.89 - OTHER SPECIFIED DISEASES OF PANCREAS (2) Transaminitis Code(s): R74.0 - NONSPEC ELEV OF LEVELS OF TRANSAMNS & LACTIC ACID DEHYDRGNSE
--- NOTE | 2019-12-20 12:02 | CON.GU ---
Consult - Past Medical History Cardio/Vascular: Yes: HTN Rheumatology: Yes: Gout - Past Surgical History Additional Surgical History: Unspecified abdominal surgery - Alcohol/Substance Use Hx Alcohol Use: No - Smoking History Smoking history: Never smoked Have you smoked in the past 12 months: No Home Medications - Allergies Allergies/Adverse Reactions: Allergies Allergy/AdvReac Type Severity Reaction Status Date / Time ciprofloxacin [From Cipro] Allergy Verified 08/14/18 20:20 - Home Medications Home Medications: Ambulatory Orders Allopurinol [Zyloprim -] 100 mg PO DAILY 08/14/18 Amlodipine Besylate 10 mg PO DAILY 08/14/18 Hydrochlorothiazide [Hctz -] 25 mg PO DAILY 12/15/19 Tamsulosin HCl 0.4 mg PO DAILY 12/15/19 Family Medical History Family History: Unable to Obtain, Denies Other Family History: No family history of cancer Physical Exam- Vital Signs: Vital Signs Temperature 98.9 F 12/20/19 08:51 Pulse Rate 103 H 12/20/19 08:51 Respiratory Rate 20 12/20/19 09:00 Blood Pressure 140/69 12/20/19 08:51 O2 Sat by Pulse Oximetry (%) 98 12/20/19 09:00 Labs: CBC, BMP 12/20/19 07:15 12/20/19 07:15
--- NOTE | 2019-12-20 12:18 | PN ---
DATE OF VISIT: DATE OF DICTATION: 12/19/2019 Patient is an 84-year-old male who presented with obstructive azotemia. Presently, his vital signs are stable. His BUN is 14.4 and creatinine 1.2. White count 8.7. His abdomen is soft. The Campbell is present, patent. Urine is clear. The CAT scan revealed bilateral hydroureteronephrosis with a distended, thickened bladder and a large obstructive prostate. Will take to OR in a.m. for cystoscopy, possible TUR. Will keep n.p.o. after midnight. Sienna [id number]
--- NOTE | 2019-12-20 12:42 | CONS ---
DATE OF CONSULTATION: DATE OF DICTATION: 12/20/2019 Patient is an 84-year-old male admitted to the hospital with hypertension and altered mental status. This patient was found to have urinary frequency and dribbling. His BUN was 87 and creatinine 5.4. A CT scan of the abdomen and pelvis revealed bilateral hydronephrosis with a collection in the lower pole of the left kidney due to calyceal rupture. The bladder was very distended. A Campbell catheter was placed. Patient has improved. His BUN is now 25 and creatinine 1.5. His white count is 8000. Patient will undergo a cystoscopy, TURP. This was explained to patient as well as patient's , and they both agree. Sienna [id number]
[2019-12-20] MEDS: CEFTRIAXONE 2 GM in DEXTROSE 5%-WATER 100 ML IVPB SCH (14:30)
--- NOTE | 2019-12-20 14:48 | PN ---
Physical Exam: SUBJECTIVE: Patient seen and examined at bedside. Patient was restless again last night, Pulling out the Campbell, Campbell was re inserted. Patient was sleeping. AAOx2, only to person and Location. Patient is still confused and mumbling this morning. OBJECTIVE: Vital Signs Period Temp Pulse Resp BP Sys/Odell Pulse Ox Last 24 Hr 97.8 F-98.9 F 86-113 18-20 113-148/69-71 97-100 GENERAL: Awake, confused, and Ox2, in no acute distress. HEAD: Normal with no signs of trauma. EYES: Sclera anicteric, conjunctiva clear. No lid lag. NECK: Supple without lymphadenopathy, JVD, or Right soft tissue mass, movable, encapsulated. LUNGS: Breath sounds equal, clear to auscultation bilaterally. No wheezes, and no crackles. No accessory muscle use. HEART: Regular rate and rhythm, normal S1 and S2 without murmur, rub or gallop. ABDOMEN: Soft, nontender, not distended, normoactive bowel sounds, no guarding, no rebound, no masses. No hepatomegaly or splenomegaly. : Campbell is in Place-draining pink , Actively bleeding from urethral meatus MUSCULOSKELETAL: Normal range of motion at all joints. No bony deformities or tenderness. No CVA tenderness. UPPER EXTREMITIES: 2+ pulses, warm, well-perfused. No cyanosis. No clubbing. No peripheral edema. LOWER EXTREMITIES: 2+ pulses, warm, well-perfused. No calf tenderness. No peripheral edema. NEUROLOGICAL: AAox2, confused SKIN: Warm, dry Laboratory Results - last 24 hr 12/20/19 12/20/19 07:15 07:15 WBC 8.7 RBC 3.92 L Hgb 12.7 Hct 38.4 MCV 98.0 H MCH 32.4 MCHC 33.1 RDW 13.9 Plt Count 433 MPV 7.7 Absolute Neuts (auto) 7.0 Neutrophils % 81.0 Lymphocytes % 8.0 D Monocytes % 8.5 Eosinophils % 1.9 Basophils % 0.6 Nucleated RBC % 0 Sodium 143 Potassium 3.8 Chloride 113 H Carbon Dioxide 20 L Anion Gap 9 BUN 9.4 Creatinine 1.1 Est GFR (CKD-EPI)AfAm 70.57 Est GFR (CKD-EPI)NonAf 60.89 Random Glucose 85 Calcium 8.6 Phosphorus 1.8 L Magnesium 1.8 Total Bilirubin 0.6 AST 50 H ALT 65 H Alkaline Phosphatase 89 Total Protein 7.2 Albumin 2.7 L Active Medications Generic Name Dose Route Start Last Admin Trade Name Tuckerq PRN Reason Stop Dose Admin Amlodipine Besylate 10 mg 12/16/19 10:00 12/20/19 09:46 Norvasc - PO 10 mg DAILY GAURI Administration Diphenhydramine HCl 25 mg 12/19/19 22:00 12/19/19 21:10 Benadryl - PO 25 mg HS GAURI Administration Heparin Sodium (Porcine) 5,000 unit 12/16/19 06:00 12/20/19 05:08 Heparin - SQ 5,000 unit TID GAURI Administration Ceftriaxone Sodium 2 gm/ 100 mls @ 100 mls/hr 12/17/19 05:00 12/20/19 14:30 Dextrose IVPB Not Given DAILY [facility] Potassium Chloride 10 meq/ 1,005 mls @ 75 mls/hr 12/18/19 12:03 12/20/19 02:14 Sodium Chloride IVPB Not Given Q13H GAURI Potassium Phosphate 30 mm/ 510 mls @ 63.75 mls/hr 12/20/19 10:00 12/20/19 14:30 Sodium Chloride IVPB 12/20/19 17:59 Not Given ONCE ONE 30 MM/8 HR Melatonin 5 mg 12/19/19 18:18 12/19/19 23:16 Melatonin PO 5 mg HS PRN Administration INSOMNIA Tamsulosin HCl 0.4 mg 12/16/19 08:30 12/20/19 09:44 Flomax - PO Not Given DAILY@0830 [facility] 12/15: CTAB: Postsurgical changes left lobe of the liver. There is heavy calcification within the right lobe of the liver versus metallic density. Correlate with prior intervention. Questionable pancreatic mass, consider abdominal/pelvic CT with intravenous contrast media or MR imaging. Collection in the lower pole and medial of the left kidney as described above. Findings could represent sequela from prior instrumentation, calyceal rupture from prior hydronephrosis, correlate with history. Perinephric stranding is identified. Hyperdense lesion within the lower pole of the left kidney as discussed above, consider ultrasound imaging for further assessment as clinically warranted. Postsurgical clips within the right colon, correlate with prior surgery. Enlarged prostate gland with a Campbell catheter in place. ASSESSMENT/PLAN: Denis Morrison Jr is a 84 Y M with a PMH of HTN presented to ER with his for 2 weeks of worsening altered mental status, confusion, decreased PO intake, 15 lbs weight loss, difficulty ambulating. Admitted for sepsis 2/2 to acute complicated cystitis #Acute Metabolic encephalopathy 2/2 UTI - UA Positive for UTI, Urine Cx - Klebsiella, - pt is AAOx1, confused, AAOx3 at baseline - No evidence of acute intracranial pathology on noncontrast head CT scan though it is reported as suboptimal study. - Pelvic/Bladder and Kidney u/s: Mild bilateral hydronephrosis, Over distended urinary bladder with retention - Carotid Duplex - moderate atherosclerotic disease, no hemodynamically significant stenosis - CTAB as noted above - Continue Campbell and monitor I&O - Continue Flomax - Continue Ceftriaxone - Neurology Dr. Gomes on Board: Repeat CAT scan of the head with no contrast. - CT head: No acute pathology, Mod volume loss w/ ventricular Dilation. Chronic microvascular ischemic changes - Soft tissue neck: No solid/fatty mass/lipoma. Mod sized calcified plaque at common carotid Bifurcation bilaterally. C-spine multi level DDD # b/l Hydronephrosis w Fluid collection - CTAB: fluid near the lower pole of the left kidney. A collection inferior and medial to the lower pole of the left kidney measures 5 x 4 x 4.5 cm. - Pelvic/Bladder and Kidney u/s: Mild bilateral hydronephrosis, Over distended urinary bladder with retention - Urology consulted (Dr. Bradford, Nayel): Repeat US and possible IR consult for intervention depending on US findings - Scheduled for Cystospcopy today, patient refused, consent from , pending cysto Monday #KARLO: - 2/2 enlarged prostate, enlarged Prostate on CT with PSA 33.6 - BUN/Crea improving 24.5/1.5 to 14.4/1.2 - Pelvic/Bladder and Kidney u/s: Mild bilateral hydronephrosis, Over distended urinary bladder with retention - repleted electrolytes, continue to monitor - Urology recommends Cystoscopy - Repeat CTAB: Irregular thick walled urinary bladder - Scheduled for Cystospcopy today, patient refused, consent from , pending cysto Monday - Nephrology on board (Dr. read): reduced IV fluid rate - Continue tamsulosin #Pancreatic Mass - CTAB: Questionable pancreatic mass. - weight loss + anorexia - CA 19/9 elevated - GI consulted (Dr. Alvarez), Recs: -Will need contrast imaging of the pancreas (MRI or CT scan of abdomen with pancreatic protocol). - MRCP ordered as per GI recommendations: Not completed by radiology #TRANSAMINITIS: - unkonw etiology Possibly 2/2 to Pancreatic Mass - will continue to monitor - Avoid hepatotoxic agents - improving - Negative hep panel #HTN: - Continue Norvasc 10mg daily #Hypokalemia #Hypomagnesemia #Hypophosphatemia - repleted. #R. neck mobile subcutaneous mass - CT neck: No solid/fatty/ mass/lipoma, Mod. size calcified plaque @ common carotid bifurcation bilaterally, C-spine multilevel DDD - out pt ENT evaluation #FEN: - Gentle hydration - Continue to monitor electrolytes - Soft diet when tolerated #DVT prophylaxis - Holding Heparin for now. #DISPOSITION: - Continue to monitor in [place] Visit type - Emergency Visit Emergency Visit: Yes ED Registration Date: 12/16/19 Care time: The patient presented to the Emergency Department on the above date and was hospitalized for further evaluation of their emergent condition. - New Patient This patient is new to me today: Yes Date on this admission: 12/22/19 - Critical Care Critical Care patient: No - Medication Review Med list reviewed for High Risk Meds patients 65 and older: Yes ATTENDING PHYSICIAN STATEMENT I saw and evaluated the patient. I reviewed the resident's note and discussed the case with the resident. I agree with the resident's findings and plan as documented. SUBJECTIVE: OBJECTIVE: ASSESSMENT AND PLAN:
--- NOTE | 2019-12-20 15:34 | OP ---
O.R Cancelled. Patient upset at several attempts at starting I.V, will delay procedure. MTDD
--- NOTE | 2019-12-20 15:55 | PN ---
Progress Note, Physician History of Present Illness: Pt seen and examined at bedside. He is awake and alert. He denies shortness of breath. He remains confused. - Current Medication List Current Medications: Active Medications Amlodipine Besylate (Norvasc -) 10 mg PO DAILY [facility] Diphenhydramine HCl (Benadryl -) 25 mg PO HS [facility] Potassium Phosphate 30 mm/ (Sodium Chloride) 510 mls @ 63.75 mls/hr IVPB ONCE ONE Stop: 12/20/19 17:59 Last Admin: 12/20/19 14:30 Dose: Not Given Documented by: Ceftriaxone Sodium 2 gm/ (Dextrose) 100 mls @ 100 mls/hr IVPB DAILY [facility] Potassium Chloride 10 meq/ (Sodium Chloride) 1,005 mls @ 75 mls/hr IVPB Q13H [facility] Melatonin (Melatonin) 5 mg PO HS PRN PRN Reason: INSOMNIA Risperidone (Risperdal -) 0.25 mg PO ONCE ONE Stop: 12/20/19 16:01 Tamsulosin HCl (Flomax -) 0.4 mg PO DAILY@0830 [facility] - Objective Vital Signs: Vital Signs Temperature 98.6 F 12/20/19 14:23 Pulse Rate 113 H 12/20/19 14:23 Respiratory Rate 20 12/20/19 14:23 Blood Pressure 138/71 12/20/19 14:23 O2 Sat by Pulse Oximetry (%) 97 12/20/19 14:23 Constitutional: Yes: Calm Eyes: Yes: Conjunctiva Clear HENT: Yes: Atraumatic Neck: Yes: Supple Cardiovascular: Yes: S1, S2 Respiratory: Yes: CTA Bilaterally Gastrointestinal: Yes: Soft Genitourinary: Yes: Campbell Present Edema: No Neurological: Yes: Confusion Psychiatric: Yes: Oriented Labs: CBC, BMP 12/20/19 07:15 12/20/19 07:15 Problem List - Problems (1) KARLO (acute kidney injury) Code(s): N17.9 - ACUTE KIDNEY FAILURE, UNSPECIFIED (2) AMS (altered mental status) Code(s): R41.82 - ALTERED MENTAL STATUS, UNSPECIFIED Qualifiers: Altered mental status type: disorientation Qualified Code(s): R41.0 - Disorientation, unspecified (3) UTI (urinary tract infection) Code(s): N39.0 - URINARY TRACT INFECTION, SITE NOT SPECIFIED Qualifiers: Urinary tract infection type: acute cystitis Hematuria presence: without hematuria Qualified Code(s): N30.00 - Acute cystitis without hematuria Assessment/Plan Current Medications Generic Name Dose Route Start Last Admin Trade Name Freq PRN Reason Stop Dose Admin Amlodipine Besylate 10 mg 12/21/19 10:00 Norvasc - PO DAILY [facility] Diphenhydramine HCl 25 mg 12/20/19 22:00 Benadryl - PO HS [facility] Potassium Phosphate 30 mm/ 510 mls @ 63.75 mls/hr 12/20/19 10:00 12/20/19 14:30 Sodium Chloride IVPB 12/20/19 17:59 Not Given ONCE ONE 30 MM/8 HR Ceftriaxone Sodium 2 gm/ 100 mls @ 100 mls/hr 12/21/19 10:00 Dextrose IVPB DAILY [facility] Potassium Chloride 10 meq/ 1,005 mls @ 75 mls/hr 12/20/19 16:03 Sodium Chloride IVPB Q13H [facility] Melatonin 5 mg 12/20/19 22:00 Melatonin PO HS PRN INSOMNIA Risperidone 0.25 mg 12/20/19 16:00 Risperdal - PO 12/20/19 16:01 ONCE ONE Tamsulosin HCl 0.4 mg 12/21/19 08:30 Flomax - PO DAILY@0830 [facility] Impression 1. KARLO 2. hydronephrosis 3. urinary obstruction 4. weight loss 5. altered mental status 6. uti 7. htn 8. possible pancreatic mass Plan - monitor renal function - can stop fluids - encourage po intake - urology follow up - will follow prn
[2019-12-20] MEDS ORDERED: risperiDONE 0.25 MG TABLET PO ONE (16:00)
[2019-12-20] MEDS ORDERED: POTASSIUM CHLORIDE 10 MEQ in SODIUM CHLORIDE 1,000 ML IVPB SCH (16:03)
--- NOTE | 2019-12-20 16:42 | PN ---
Teaching Attending Note Name of Resident: Yusra Dominguez ATTENDING PHYSICIAN STATEMENT I saw and evaluated the patient. I reviewed the resident's note and discussed the case with the resident. I agree with the resident's findings and plan as documented. SUBJECTIVE: Feeling well, no complaints. Confused. Pulled out goldstein overnight, requiring replacement. No fever/chills. Cystoscopy procedure aborted as patient declined IV line by anesthesia (as per Nurse). OBJECTIVE: Afebrile, hemodynamically stable. AAO x 2 Last Vital Signs Temp Pulse Resp BP Pulse Ox 98.6 F 113 H 20 138/71 97 12/20/19 14:23 12/20/19 14:23 12/20/19 14:23 12/20/19 14:23 12/20/19 14:23 HEENT - Atraumatic, L neck mobile subcutaneous mass (non-tender) Heart - S1, S2, SM Lungs - clear to auscultation Abdomen - soft, non-tender. Bowel Sounds normal. Extremities - no edema, no calf tenderness. Neuro - AAO x 2, Moving all 4 extremities. - goldstein in situ draining slight blood tinged urine. Laboratory Results - last 24 hr 12/20/19 12/20/19 07:15 07:15 WBC 8.7 RBC 3.92 L Hgb 12.7 Hct 38.4 MCV 98.0 H MCH 32.4 MCHC 33.1 RDW 13.9 Plt Count 433 MPV 7.7 Absolute Neuts (auto) 7.0 Neutrophils % 81.0 Lymphocytes % 8.0 D Monocytes % 8.5 Eosinophils % 1.9 Basophils % 0.6 Nucleated RBC % 0 Sodium 143 Potassium 3.8 Chloride 113 H Carbon Dioxide 20 L Anion Gap 9 BUN 9.4 Creatinine 1.1 Est GFR (CKD-EPI)AfAm 70.57 Est GFR (CKD-EPI)NonAf 60.89 Random Glucose 85 Calcium 8.6 Phosphorus 1.8 L Magnesium 1.8 Total Bilirubin 0.6 AST 50 H ALT 65 H Alkaline Phosphatase 89 Total Protein 7.2 Albumin 2.7 L Current Medications Generic Name Dose Route Start Last Admin Trade Name Freq PRN Reason Stop Dose Admin Amlodipine Besylate 10 mg 12/21/19 10:00 Norvasc - PO DAILY [facility] Diphenhydramine HCl 25 mg 12/20/19 22:00 Benadryl - PO HS [facility] Potassium Phosphate 30 mm/ 510 mls @ 63.75 mls/hr 12/20/19 10:00 12/20/19 14:30 Sodium Chloride IVPB 12/20/19 17:59 Not Given ONCE ONE 30 MM/8 HR Ceftriaxone Sodium 2 gm/ 100 mls @ 100 mls/hr 12/21/19 10:00 Dextrose IVPB DAILY [facility] Melatonin 5 mg 12/20/19 22:00 Melatonin PO HS PRN INSOMNIA Tamsulosin HCl 0.4 mg 12/21/19 08:30 Flomax - PO DAILY@0830 [facility] Home Medications Medication Instructions Recorded Allopurinol [Zyloprim -] 100 mg PO DAILY 08/14/18 Amlodipine Besylate 10 mg PO DAILY 08/14/18 Hydrochlorothiazide [Hctz -] 25 mg PO DAILY 12/15/19 Tamsulosin HCl 0.4 mg PO DAILY 12/15/19 ASSESSMENT AND PLAN: 84 year old male with history of Gout, HTN, presents with confusion, weakness, decreased oral intake, increased urinary frequency and dysuria. 1. Acute Metabolic Encephalopathy secondary to UTI/Uremia - ongoing confusion, some agitation AAO x 2, normal at baseline as per . CT head - no acute findings. Repeat CT - no changes, moderate volume loss/ventricular dilatation/microvascular ischemic changes. Carotid Duplex - moderate atherosclerotic disease, no hemodynamically significant stenosis. Trial of Remeron did not work, will attempt Mirtazapine. Urine Cx - Klebsiella, Continue Ceftriaxone. Afebrile. Hemodynamically Stable. 2. KARLO secondary to Obstructive Uropathy Bilateral Hydronephrosis on Renal US, enlarged Prostate on CT with PSA 33.6 Creat much improved s/p goldstein insertion - Creat down to 1.1 from 6.4 Nephrology following, IV fluids stopped. Urology recommends Cystoscopy, scheduled today but Cystoscopy procedure aborted as patient declined IV line by anesthesia (as per Nurse). Continue Tamsulosin - further recommendations as per Urology. 3. L Renal collection - ?etiology Repeat CT A/P - decreased L perinephric collection, decreased hydronephrosis/hydroureters. Further recommendations as per Urology. 4. Pancreatic Mass (possible), incidental finding on CT A/P CA 19/9 elevated. MRCP ordered as per GI recommendations - not done by Radiology as felt to be an out-patient investigation. Will need further work-up as out-patient. Will consult Oncology for eval and recommendations. 5. Elevated LFTs ?etiology - improving. Hepatitis work-up negative Further recommendations as per GI. 6. HTN - HCTZ held due to KARLO. Continue Norvasc. 7. Hypokalemia/Hypomagnesemia/Hypophosphatemia - repleted. 8. L neck mobile subcutaneous mass (non-tender) - CT Head/Neck - no acute findings, DJD, no mass - for out-patient ENT eval. DVT Px - Heparin SQ held due to mild hematuria on traumatic goldstein self-removal.
[2019-12-20] MEDS: diphenhydrAMINE HCL 25 MG CAPSULE (FP) PO SCH (21:38)
[2019-12-20] MEDS: MELATONIN 5 MG TABLETS PO PRN (21:39)
--- NOTE | 2019-12-20 23:37 | PN ---
DATE OF VISIT: 12/20/2019 Patient is an 84 -year-old male scheduled for a cystoscopy and a TURP this morning. After multiple unsuccessful attempts at placement of an IV, patient was angry and changed his mind, and refused to have the procedure today. Therefore, the procedure was cancelled. The patient does have history of overflow incontinence with bilateral hydroureteronephrosis and obstructive azotemia. The Campbell catheter has resolved the hydronephrosis and the azotemia. Presently his BUN is 25 and his creatinine is 1.5. His white count is 8000. Will recommend placing an IV prior to taking the patient down to the operating room and rescheduling patient when medically okay. Will follow with you. EDGARD NICHOLS M.D. MARIA [id number]
[2019-12-21 08:48] LABS: BASO % 0.6 % (0-2.0); EOS % 2.1 % (0-4.5); HEMATOCRIT 41.2 % (35.4-49); HEMOGLOBIN 13.6 GM/dL (11.7-16.9); LYMPH % 9.9 % (8-40); MCH 32.6 pg (25.7-33.7); MCHC 33.1 g/dl (32.0-35.9); MEAN CELL VOLUME 98.7 fl (80-96); MEAN PLT VOLUME 7.5 fl (7.5-11.1); MONO % 8.2 % (3.8-10.2); NEUT % 79.2 % (42.8-82.8); PLATELET COUNT 392 K/MM3 (134-434); RBC 4.17 M/mm3 (4.00-5.60); RDW 14.2 % (11.9-15.9); WHITE BLOOD COUNT 9.4 K/mm3 (4.0-10.0)
[2019-12-21 09:11] LABS: ALBUMIN 2.8 g/dl (3.4-5.0); BILIRUBIN,TOTAL 0.9 mg/dL (0.2-1); BLOOD UREA NITROGEN 14.7 mg/dL (7-18); CREATININE 1.2 mg/dL (0.55-1.3); MAGNESIUM 1.7 mg/dL (1.8-2.4); TOT PROT 7.7 g/dl (6.4-8.2)
[2019-12-21] MEDS: TAMSULOSIN HCL 0.4 MG CAP PO SCH ×2 (09:25→10:26)
[2019-12-21] MEDS: amLODIPine BESYLATE 10 MG TABLET (FP) PO SCH ×2 (09:25→10:26)
[2019-12-21] MEDS ORDERED: MAGNESIUM 1GM/D5W - 1 GM/100 ML IVPB IVPB ONE (10:00)
[2019-12-21] MEDS ORDERED: NAPH,MB-DB/K PH,MBDB POWDER PACKET PO ONE (10:00)
[2019-12-21] MEDS ORDERED: PT OWN MED DRAWER 7, Y5N ONE (10:02)
[2019-12-21] MEDS ORDERED: DEXTROSE 5%-WATER 100 ML IVPB ONE (10:42)
[2019-12-21] MEDS: CEFTRIAXONE 2 GM in DEXTROSE 5%-WATER 100 ML IVPB SCH (10:43)
--- NOTE | 2019-12-21 13:12 | PN ---
Physical Exam: SUBJECTIVE: Patient seen and examined at bedside, aa0x2, confused, but able to follow commands. OBJECTIVE: Vital Signs Period Temp Pulse Resp BP Sys/Odell Pulse Ox Last 24 Hr 97.8 F-99.0 F 94-113 20-20 128-154/56-81 97-100 GENERAL: Awake, confused, and Ox2, in no acute distress. HEAD: Normal with no signs of trauma. EYES: Sclera anicteric, conjunctiva clear. No lid lag. NECK: Supple without lymphadenopathy, JVD, or Right soft tissue mass, movable, encapsulated. LUNGS: Breath sounds equal, clear to auscultation bilaterally. No wheezes, and no crackles. No accessory muscle use. HEART: Regular rate and rhythm, normal S1 and S2 without murmur, rub or gallop. ABDOMEN: Soft, nontender, not distended, normoactive bowel sounds, no guarding, no rebound, no masses. No hepatomegaly or splenomegaly. : Campbell is in Place-draining Yellow MUSCULOSKELETAL: Normal range of motion at all joints. No bony deformities or tenderness. No CVA tenderness. UPPER EXTREMITIES: 2+ pulses, warm, well-perfused. No cyanosis. No clubbing. No peripheral edema. LOWER EXTREMITIES: 2+ pulses, warm, well-perfused. No calf tenderness. No peripheral edema. NEUROLOGICAL: AAox2, confused SKIN: Warm, dry Laboratory Results - last 24 hr 12/21/19 12/21/19 07:35 07:35 WBC 9.4 RBC 4.17 Hgb 13.6 Hct 41.2 MCV 98.7 H MCH 32.6 MCHC 33.1 RDW 14.2 Plt Count 392 MPV 7.5 Absolute Neuts (auto) 7.5 Neutrophils % 79.2 Lymphocytes % 9.9 D Monocytes % 8.2 Eosinophils % 2.1 Basophils % 0.6 Nucleated RBC % 0 Sodium 146 H Potassium 4.0 Chloride 116 H Carbon Dioxide 22 Anion Gap 7 L BUN 14.7 Creatinine 1.2 Est GFR (CKD-EPI)AfAm 63.52 Est GFR (CKD-EPI)NonAf 54.81 Random Glucose 83 Calcium 9.0 Phosphorus 2.0 L Magnesium 1.7 L Total Bilirubin 0.9 AST 55 H ALT 68 H Alkaline Phosphatase 98 Total Protein 7.7 Albumin 2.8 L Active Medications Generic Name Dose Route Start Last Admin Trade Name Freq PRN Reason Stop Dose Admin Amlodipine Besylate 10 mg 12/21/19 10:00 12/21/19 10:26 Norvasc - PO Not Given DAILY [facility] Diphenhydramine HCl 25 mg 12/20/19 22:00 12/20/19 21:38 Benadryl - PO 25 mg HS [facility] Administration Ceftriaxone Sodium 2 gm/ 100 mls @ 100 mls/hr 12/21/19 10:00 12/21/19 10:43 Dextrose IVPB 100 mls/hr DAILY [facility] Administration Melatonin 5 mg 12/20/19 22:00 12/20/19 21:39 Melatonin PO 5 mg HS PRN Administration INSOMNIA Tamsulosin HCl 0.4 mg 12/21/19 08:30 12/21/19 10:26 Flomax - PO Not Given DAILY@0830 [facility] 12/15: CTAB: Postsurgical changes left lobe of the liver. There is heavy calcification within the right lobe of the liver versus metallic density. Correlate with prior intervention. Questionable pancreatic mass, consider abdominal/pelvic CT with intravenous contrast media or MR imaging. Collection in the lower pole and medial of the left kidney as described above. Findings could represent sequela from prior instrumentation, calyceal rupture from prior hydronephrosis, correlate with history. Perinephric stranding is identified. Hyperdense lesion within the lower pole of the left kidney as discussed above, consider ultrasound imaging for further assessment as clinically warranted. Postsurgical clips within the right colon, correlate with prior surgery. Enlarged prostate gland with a Campbell catheter in place. ASSESSMENT/PLAN: Denis Morrison Jr is a 84 Y M with a PMH of HTN presented to ER with his for 2 weeks of worsening altered mental status, confusion, decreased PO intake, 15 lbs weight loss, difficulty ambulating. Admitted for sepsis 2/2 to acute complicated cystitis #Acute Metabolic encephalopathy 2/2 UTI - UA Positive for UTI, Urine Cx - Klebsiella, - pt is AAOx2, confused, AAOx3 at baseline - No evidence of acute intracranial pathology on noncontrast head CT scan though it is reported as suboptimal study. - Pelvic/Bladder and Kidney u/s: Mild bilateral hydronephrosis, Over distended urinary bladder with retention - Carotid Duplex - moderate atherosclerotic disease, no hemodynamically significant stenosis - CTAB as noted above - Continue Campbell and monitor I&O - Continue Flomax - Continue Ceftriaxone - Neurology Dr. Gomes on Board: Repeat CAT scan of the head with no contrast. - CT head: No acute pathology, Mod volume loss w/ ventricular Dilation. Chronic microvascular ischemic changes # b/l Hydronephrosis w Fluid collection - CTAB: fluid near the lower pole of the left kidney. A collection inferior and medial to the lower pole of the left kidney measures 5 x 4 x 4.5 cm. - Pelvic/Bladder and Kidney u/s: Mild bilateral hydronephrosis, Over distended urinary bladder with retention - Repeat CT A/P revealed decreased L perinephric collection, decreased hydronephrosis/hydroureters - Urology on board (Dr. Bradford, [facility]): Scheduled for Cystospcopy on 12/19, patient declined IV line by anesthesia, consent from , pending cysto Monday #KARLO: - 2/2 enlarged prostate, enlarged Prostate on CT with PSA 33.6 - Crea improving 1.5 to 1.2 - Pelvic/Bladder and Kidney u/s: Mild bilateral hydronephrosis, Over distended urinary bladder with retention - repleted electrolytes, will continue to monitor - Urology recommends Cystoscopy, Scheduled for Cystospcopy on 12/19, patient declined IV line by anesthesia, consent from , pending cysto Monday - Repeat CTAB: Irregular thick walled urinary bladder - Nephrology on board (Dr. read): reduced IV fluid rate - Continue tamsulosin #Pancreatic Mass - CTAB: Questionable pancreatic mass. - weight loss + anorexia - CA 19/9 elevated - GI consulted (Dr. Alvarez), Recs: -Will need contrast imaging of the pancreas (MRI or CT scan of abdomen with pancreatic protocol). - MRCP ordered as per GI recommendations: Not completed by radiology - Patient will need further work up as outpatient - Consulted Heme Onc, Pending recs #TRANSAMINITIS: - unkonw etiology Possibly 2/2 to Pancreatic Mass - will continue to monitor - Avoid hepatotoxic agents - improving - Negative hep panel #HTN: - Continue Norvasc 10mg daily #Hypokalemia #Hypomagnesemia #Hypophosphatemia - repleted. #R. neck mobile subcutaneous mass - CT neck: No solid/fatty/ mass/lipoma, Mod. size calcified plaque @ common carotid bifurcation bilaterally, C-spine multilevel DDD - out pt ENT evaluation #FEN: - Gentle hydration - Continue to monitor electrolytes - Soft diet when tolerated #DVT prophylaxis - Heparin SQ TID #DISPOSITION: - Continue to monitor in [place], Pending Heme onc evaluation, Pending Cystoscopy Visit type - Emergency Visit Emergency Visit: Yes ED Registration Date: 12/16/19 Care time: The patient presented to the Emergency Department on the above date and was hospitalized for further evaluation of their emergent condition. - New Patient This patient is new to me today: Yes Date on this admission: 12/22/19 - Critical Care Critical Care patient: No - Medication Review Med list reviewed for High Risk Meds patients 65 and older: Yes ATTENDING PHYSICIAN STATEMENT I saw and evaluated the patient. I reviewed the resident's note and discussed the case with the resident. I agree with the resident's findings and plan as documented. SUBJECTIVE: OBJECTIVE: ASSESSMENT AND PLAN:
[2019-12-21] MEDS: HEPARIN NA (PORCINE) 5,000 UNITS/ML 1ML VIAL SQ SCH ×2 (13:59→21:44)
--- NOTE | 2019-12-21 15:05 | PN ---
Teaching Attending Note Name of Resident: Yusra Dominguez ATTENDING PHYSICIAN STATEMENT I saw and evaluated the patient. I reviewed the resident's note and discussed the case with the resident. I agree with the resident's findings and plan as documented. SUBJECTIVE: no complaints. Confused. Pulled out another IV line overnight. No fever/chills. Cystoscopy procedure aborted as patient declined IV line by anesthesia. Hematuria due to traumatic goldstein self-removal resolved. OBJECTIVE: Afebrile, hemodynamically stable. AAO x 1, confused, occasionally difficult to control. Last Vital Signs Temp Pulse Resp BP Pulse Ox 98.0 F 106 H 20 138/78 100 12/21/19 10:12/21/19 10:00 12/21/19 10:00 12/21/19 10:12/21/19 10:00 HEENT - Atraumatic, L neck mobile subcutaneous mass (non-tender) Heart - S1, S2, SM Lungs - clear to auscultation Abdomen - soft, non-tender. Bowel Sounds normal. Extremities - no edema, no calf tenderness. Neuro - AAO x 1, Disoriented, confused. Moving all 4 extremities. - goldstein in situ draining clear urine. Laboratory Results - last 24 hr 12/21/19 12/21/19 07:35 07:35 WBC 9.4 RBC 4.17 Hgb 13.6 Hct 41.2 MCV 98.7 H MCH 32.6 MCHC 33.1 RDW 14.2 Plt Count 392 MPV 7.5 Absolute Neuts (auto) 7.5 Neutrophils % 79.2 Lymphocytes % 9.9 D Monocytes % 8.2 Eosinophils % 2.1 Basophils % 0.6 Nucleated RBC % 0 Sodium 146 H Potassium 4.0 Chloride 116 H Carbon Dioxide 22 Anion Gap 7 L BUN 14.7 Creatinine 1.2 Est GFR (CKD-EPI)AfAm 63.52 Est GFR (CKD-EPI)NonAf 54.81 Random Glucose 83 Calcium 9.0 Phosphorus 2.0 L Magnesium 1.7 L Total Bilirubin 0.9 AST 55 H ALT 68 H Alkaline Phosphatase 98 Total Protein 7.7 Albumin 2.8 L Current Medications Generic Name Dose Route Start Last Admin Trade Name Freq PRN Reason Stop Dose Admin Amlodipine Besylate 10 mg 12/21/19 10:12/21/19 10:26 Norvasc - PO Not Given DAILY [facility] Diphenhydramine HCl 25 mg 12/20/19 22:00 12/20/19 21:38 Benadryl - PO 25 mg HS [facility] Administration Heparin Sodium (Porcine) 5,000 unit 12/21/19 14:00 12/21/19 13:59 Heparin - SQ 5,000 unit TID [facility] Administration Ceftriaxone Sodium 2 gm/ 100 mls @ 100 mls/hr 12/21/19 10:00 12/21/19 10:43 Dextrose IVPB 100 mls/hr DAILY [facility] Administration Magnesium Oxide 400 mg 12/21/19 22:00 Mag-Ox - PO BID [facility] Melatonin 5 mg 12/20/19 22:00 12/20/19 21:39 Melatonin PO 5 mg HS PRN Administration INSOMNIA Potassium Phos/Sodium Phos 1 packet 12/21/19 22:00 Phos-Nak Packet - PO 12/23/19 14:01 TID [facility] Tamsulosin HCl 0.4 mg 12/21/19 08:30 12/21/19 10:26 Flomax - PO Not Given DAILY@0830 [facility] Home Medications Medication Instructions Recorded Allopurinol [Zyloprim -] 100 mg PO DAILY 08/14/18 Amlodipine Besylate 10 mg PO DAILY 08/14/18 Hydrochlorothiazide [Hctz -] 25 mg PO DAILY 12/15/19 Tamsulosin HCl 0.4 mg PO DAILY 12/15/19 ASSESSMENT AND PLAN: 84 year old male with history of Gout, HTN, presents with confusion, weakness, decreased oral intake, increased urinary frequency and dysuria. 1. Acute Metabolic Encephalopathy secondary to UTI/Uremia - ongoing confusion, some agitation AAO x 1, normal at baseline as per . CT head - no acute findings. Repeat CT - no changes, moderate volume loss/ventricular dilatation/microvascular ischemic changes. Carotid Duplex - moderate atherosclerotic disease, no hemodynamically significant stenosis. Urine Cx - Klebsiella, Continue Ceftriaxone. Afebrile. Hemodynamically Stable. Trial of Remeron did not work, mixed result with Mirtazapine - will consult Dr. Alicea for further guidance/recommendations. 2. KARLO secondary to Obstructive Uropathy Bilateral Hydronephrosis on Renal US, enlarged Prostate on CT with PSA 33.6 Creat much improved s/p goldstein insertion - Creat now normal from 6.4 Nephrology following, IV fluids stopped. Urology recommended Cystoscopy, scheduled 12/19 but Cystoscopy procedure aborted as patient declined IV line by anesthesia. Continue Tamsulosin - further recommendations as per Urology. 3. L Renal collection - ?etiology Repeat CT A/P - decreased L perinephric collection, decreased hydronephrosis/hydroureters. Further recommendations as per Urology. 4. Pancreatic Mass (possible), incidental finding on CT A/P CA 19/9 elevated. MRCP ordered as per GI recommendations - not done by Radiology as felt to be an out-patient investigation. Will need further work-up. Will consult Oncology for eval and recommendations. 5. Elevated LFTs ?etiology - improving. Hepatitis work-up negative Further recommendations as per GI. 6. HTN - HCTZ held due to KARLO. Continue Norvasc. 7. Hypokalemia/Hypomagnesemia/Hypophosphatemia - repletions ordered. 8. L neck mobile subcutaneous mass (non-tender) - CT Head/Neck - no acute findings, DJD, no mass - for out-patient MRI and ENT eval. DVT Px - Heparin SQ to resume given resolution of hematuria.
--- NOTE | 2019-12-21 20:53 | PN.GI ---
GI Progress Note Subjective: above event reviewed, cystoscopy rescheduled for Monday, ongoing CBI blood tinged - Objective Vital Signs: Vital Signs Temperature 97.7 F 12/21/19 17:36 Pulse Rate 94 H 12/21/19 17:36 Respiratory Rate 12/21/19 17:36 Blood Pressure 151/80 12/21/19 17:36 O2 Sat by Pulse Oximetry (%) 100 12/21/19 10:00 Constitutional: No Distress ...Palpate: Yes: Soft. No: Firm/Rigid, Guarding, Hepatomegaly, Mass, Pulsatile Mass, Splenomegaly, Tenderness Labs: CBC, BMP 12/21/19 07:35 12/21/19 07:35 Problem List - Problems (1) Pancreatic mass Assessment/Plan: R> await MRCP urology w/u in progress Elevated PSA hydronephrosis Code(s): K86.89 - OTHER SPECIFIED DISEASES OF PANCREAS
[2019-12-21] MEDS: NAPH,MB-DB/K PH,MBDB POWDER PACKET PO SCH (21:45)
[2019-12-21] MEDS: MAGNESIUM OXIDE 400 MG TABLET (FP) PO SCH (21:45)
[2019-12-21] MEDS: diphenhydrAMINE HCL 25 MG CAPSULE (FP) PO SCH (21:45)
[2019-12-21] MEDS: MELATONIN 5 MG TABLETS PO PRN (21:46)
[2019-12-22] MEDS: HEPARIN NA (PORCINE) 5,000 UNITS/ML 1ML VIAL SQ SCH ×3 (05:37→21:13)
[2019-12-22] MEDS: NAPH,MB-DB/K PH,MBDB POWDER PACKET PO SCH ×3 (05:38→21:14)
[2019-12-22 07:53] LABS: BASO % 0.9 % (0-2.0); EOS % 2.7 % (0-4.5); HEMATOCRIT 39.6 % (35.4-49); HEMOGLOBIN 13.3 GM/dL (11.7-16.9); LYMPH % 11.6 % (8-40); MCH 32.9 pg (25.7-33.7); MCHC 33.6 g/dl (32.0-35.9); MEAN CELL VOLUME 97.9 fl (80-96); MEAN PLT VOLUME 7.6 fl (7.5-11.1); MONO % 8.7 % (3.8-10.2); NEUT % 76.1 % (42.8-82.8); PLATELET COUNT 360 K/MM3 (134-434); RBC 4.05 M/mm3 (4.00-5.60); RDW 13.7 % (11.9-15.9); WHITE BLOOD COUNT 8.5 K/mm3 (4.0-10.0)
[2019-12-22 08:08] LABS: ALBUMIN 2.8 g/dl (3.4-5.0); BILIRUBIN,TOTAL 0.6 mg/dL (0.2-1); BLOOD UREA NITROGEN 17.6 mg/dL (7-18); CALCIUM 9.1 mg/dL (8.5-10.1); CREATININE 1.2 mg/dL (0.55-1.3); POTASSIUM 3.7 mmol/L (3.5-5.1); TOT PROT 7.6 g/dl (6.4-8.2)
[2019-12-22] MEDS ORDERED: DEXTROSE 5%-WATER 100 ML IVPB ONE (08:55)
[2019-12-22] MEDS: TAMSULOSIN HCL 0.4 MG CAP PO SCH (08:58)
[2019-12-22] MEDS: CEFTRIAXONE 2 GM in DEXTROSE 5%-WATER 100 ML IVPB SCH (08:59)
[2019-12-22] MEDS: MAGNESIUM OXIDE 400 MG TABLET (FP) PO SCH ×2 (08:59→21:14)
[2019-12-22] MEDS: amLODIPine BESYLATE 10 MG TABLET (FP) PO SCH (08:59)
[2019-12-22] MEDS ORDERED: POTASSIUM PHOSPHATE 30 MM in DEXTROSE 5%-WATER - 500 ML IVPB ONE (10:15)
--- NOTE | 2019-12-22 11:38 | PN ---
Progress Note (short form) - Note Progress Note: UROLOGY NOTE 84 Y/O Male patient with hx of HT, BPH and urinary retention. WBC 8.5 HB 13.3 BUN 17.6 S.Creat 1.2 Plan NPO after midnight for Cystoscopy TURP tomorrow.
--- NOTE | 2019-12-22 14:54 | PN ---
Progress Note (short form) - Note Progress Note: SUBJECTIVE: no complaints. Still a bit confused. No fever/chills. Cystoscopy procedure aborted 12/19 as patient declined IV line by anesthesia. Hematuria due to traumatic goldstein self-removal resolved. OBJECTIVE: Afebrile, hemodynamically stable. AAO x 2, confused, cooperative Last Vital Signs Temp Pulse Resp BP Pulse Ox 98.2 F 108 H 20 133/72 97 12/22/19 14:00 12/22/19 14:12/22/19 14:00 12/22/19 14:12/22/19 14:00 HEENT - Atraumatic, R neck mobile subcutaneous mass (non-tender) Heart - S1, S2, SM Lungs - clear to auscultation Abdomen - soft, non-tender. Bowel Sounds normal. Extremities - no edema, no calf tenderness. Neuro - AAO x 2, Moving all 4 extremities. - goldstein in situ draining clear urine. Laboratory Results - last 24 hr 12/22/19 12/22/19 06:45 06:45 WBC 8.5 RBC 4.05 Hgb 13.3 Hct 39.6 MCV 97.9 H MCH 32.9 MCHC 33.6 RDW 13.7 Plt Count 360 MPV 7.6 Absolute Neuts (auto) 6.4 Neutrophils % 76.1 Lymphocytes % 11.6 Monocytes % 8.7 Eosinophils % 2.7 Basophils % 0.9 Nucleated RBC % 0 Sodium 147 H Potassium 3.7 Chloride 116 H Carbon Dioxide 23 Anion Gap 9 BUN 17.6 Creatinine 1.2 Est GFR (CKD-EPI)AfAm 63.52 Est GFR (CKD-EPI)NonAf 54.81 Random Glucose 90 Calcium 9.1 Phosphorus 2.0 L Magnesium 2.0 Total Bilirubin 0.6 AST 60 H ALT 74 H Alkaline Phosphatase 106 Total Protein 7.6 Albumin 2.8 L Current Medications Generic Name Dose Route Start Last Admin Trade Name Freq PRN Reason Stop Dose Admin Amlodipine Besylate 10 mg 12/21/19 10:00 12/22/19 08:59 Norvasc - PO 10 mg DAILY GAURI Administration Diphenhydramine HCl 25 mg 12/20/19 22:00 12/21/19 21:45 Benadryl - PO 25 mg HS GAURI Administration Heparin Sodium (Porcine) 5,000 unit 12/21/19 14:00 12/22/19 14:35 Heparin - SQ 5,000 unit TID GAURI Administration Ceftriaxone Sodium 2 gm/ 100 mls @ 100 mls/hr 12/21/19 10:00 12/22/19 08:59 Dextrose IVPB 100 mls/hr DAILY GAURI Administration Potassium Phosphate 30 mm/ 510 mls @ 85 mls/hr 12/22/19 10:15 12/22/19 10:19 Dextrose IVPB 12/22/19 16:14 85 mls/hr ONCE ONE Administration Magnesium Oxide 400 mg 12/21/19 22:00 12/22/19 08:59 Mag-Ox - PO 400 mg BID GAURI Administration Melatonin 5 mg 12/20/19 22:00 12/21/19 21:46 Melatonin PO 5 mg HS PRN Administration INSOMNIA Potassium Phos/Sodium Phos 1 packet 12/21/19 22:00 12/22/19 14:35 Phos-Nak Packet - PO 12/23/19 14:01 1 packet TID GAURI Administration Tamsulosin HCl 0.4 mg 12/21/19 08:30 12/22/19 08:58 Flomax - PO 0.4 mg DAILY@0830 GAURI Administration Home Medications Medication Instructions Recorded Allopurinol [Zyloprim -] 100 mg PO DAILY 08/14/18 Amlodipine Besylate 10 mg PO DAILY 08/14/18 Hydrochlorothiazide [Hctz -] 25 mg PO DAILY 12/15/19 Tamsulosin HCl 0.4 mg PO DAILY 12/15/19 ASSESSMENT AND PLAN: 84 year old male with history of Gout, HTN, presents with confusion, weakness, decreased oral intake, increased urinary frequency and dysuria. 1. Acute Metabolic Encephalopathy secondary to UTI/Uremia - ongoing confusion, some agitation AAO x 2, normal at baseline as per . CT head - no acute findings. Repeat CT - no changes, moderate volume loss/ventricular dilatation/microvascular ischemic changes. Carotid Duplex - moderate atherosclerotic disease, no hemodynamically significant stenosis. Urine Cx - Klebsiella, Continue Ceftriaxone. Afebrile. Hemodynamically Stable. Trial of Remeron did not work, mixed result with Mirtazapine - Dr. Alicea consulted for further guidance/recommendations. 2. KARLO secondary to Obstructive Uropathy sec to BPH- resolved Bilateral Hydronephrosis on Renal US, enlarged Prostate on CT with PSA 33.6 Creat much improved s/p goldstein insertion - Creat now normal from 6.4 at presentation Nephrology following, IV fluids stopped. Urology recommended Cystoscopy, scheduled 12/19 but Cystoscopy procedure aborted as patient declined IV line by anesthesia - now rescheduled for 12/22. Continue Tamsulosin - further recommendations as per Urology. 3. L Renal collection - ?etiology Repeat CT A/P - decreased L perinephric collection, decreased hydronephrosis/hydroureters. Further recommendations as per Urology. 4. Pancreatic Mass (possible), incidental finding on CT A/P CA 19/9 elevated. MRCP ordered as per GI recommendations - not done by Radiology as felt to be an out-patient investigation. Will need further work-up. Oncology consulted for eval and recommendations. 5. Elevated LFTs ?etiology - improving. Hepatitis work-up negative Further recommendations as per GI. 6. HTN - HCTZ held due to KARLO. Continue Norvasc. 7. Hypokalemia/Hypomagnesemia/Hypophosphatemia - repleted 8. R neck mobile subcutaneous mass (non-tender) - CT Head/Neck - no acute findings, DJD, no mass - for out-patient MRI and ENT eval. DVT Px - Heparin SQ resumed given resolution of hematuria. Visit type - Emergency Visit Emergency Visit: Yes ED Registration Date: 12/16/19 Care time: The patient presented to the Emergency Department on the above date and was hospitalized for further evaluation of their emergent condition. - New Patient This patient is new to me today: No - Critical Care Critical Care patient: No - Discharge Referral Referred to [facility] Med P.C.: No - Medication Review Med list reviewed for High Risk Meds patients 65 and older: Yes
[2019-12-22] MEDS: MELATONIN 5 MG TABLETS PO PRN (21:14)
[2019-12-22] MEDS: diphenhydrAMINE HCL 25 MG CAPSULE (FP) PO SCH (21:14)
--- NOTE | 2019-12-22 21:19 | CON.HO ---
Consult Consult Specialty:: Oncology Referred by:: Medicine Reason for Consultation:: Pancreatic mass - History of Present Illness Chief Complaint: Pancreatic mass on CT, with elevated CA 19-9 History of Present Illness: Patient presented to ER with a few weeks confusion, poor appetite, loss of weight. Treated here for a UTI, as well as for bilateral hydronephrosis, likely attributable to BPH. Has improved clinically,albeit still not at baseline. CT scan on 12/15 commented on an abnormal appearing pancreas with possibility of a mass. - History Source History Provided By: Patient, Family Member, Medical Record Limitations to Obtaining History: Dementia - Past Medical History Cardio/Vascular: Yes: HTN Rheumatology: Yes: Gout - Past Surgical History Additional Surgical History: Unspecified abdominal surgery - Alcohol/Substance Use Hx Alcohol Use: No - Smoking History Smoking history: Never smoked Have you smoked in the past 12 months: No Home Medications - Allergies Allergies/Adverse Reactions: Allergies Allergy/AdvReac Type Severity Reaction Status Date / Time ciprofloxacin [From Cipro] Allergy Verified 08/14/18 20:20 - Home Medications Home Medications: Ambulatory Orders Allopurinol [Zyloprim -] 100 mg PO DAILY 08/14/18 Amlodipine Besylate 10 mg PO DAILY 08/14/18 Hydrochlorothiazide [Hctz -] 25 mg PO DAILY 12/15/19 Tamsulosin HCl 0.4 mg PO DAILY 12/15/19 Family Medical History Family History: Unable to Obtain, Denies Other Family History: No family history of cancer Physical Exam Vital Signs: Vital Signs Temperature 97.6 F 12/22/19 20:12 Pulse Rate 91 H 12/22/19 20:12 Respiratory Rate 20 12/22/19 20:12 Blood Pressure 95/70 12/22/19 20:12 O2 Sat by Pulse Oximetry (%) 100 12/22/19 20:12 Constitutional: Yes: Well Nourished, No Distress, Calm Eyes: Yes: Conjunctiva Clear HENT: Yes: Atraumatic, Normocephalic Neck: Yes: Trachea Midline. No: Lymphadenopathy Cardiovascular: Yes: Regular Rate and Rhythm, S1, S2. No: Gallop, Murmur, Rub Respiratory: Yes: Regular, CTA Bilaterally Gastrointestinal: Yes: Normal Bowel Sounds, Soft. No: Hepatomegaly, Palpable Mass, Splenomegaly Musculoskeletal: Yes: WNL Extremities: Yes: WNL Edema: No Integumentary: Yes: WNL Neurological: Yes: Alert (Mild confusion) ...Motor Strength: WNL Psychiatric: Yes: WNL Labs: CBC, BMP 12/22/19 06:45 12/22/19 06:45 Assessment/Plan Non-specific CT findings reported re pancreas. Mild elevation in CA 19-9, similarly non-specific for pancreatic malignancy. Agree with need for better imaging prior to further recommendation - MRI or MRCP - pending. Can be pursued as outpatient. Will follow.
[2019-12-23] MEDS: HEPARIN NA (PORCINE) 5,000 UNITS/ML 1ML VIAL SQ SCH ×3 (06:13→22:54)
[2019-12-23] MEDS: NAPH,MB-DB/K PH,MBDB POWDER PACKET PO SCH ×2 (06:14→13:12)
[2019-12-23] MEDS ORDERED: DEXTROSE 5%-WATER 100 ML IVPB ONE (09:25)
[2019-12-23] MEDS: TAMSULOSIN HCL 0.4 MG CAP PO SCH (09:28)
[2019-12-23] MEDS: amLODIPine BESYLATE 10 MG TABLET (FP) PO SCH (09:28)
[2019-12-23] MEDS: MAGNESIUM OXIDE 400 MG TABLET (FP) PO SCH (09:28)
[2019-12-23] MEDS: CEFTRIAXONE 2 GM in DEXTROSE 5%-WATER 100 ML IVPB SCH (09:28)
--- NOTE | 2019-12-23 13:29 | PN ---
Physical Exam: SUBJECTIVE: Patient seen and examined at bedside. No acute event overnight. Patient is still confused and mumbling this morning. OBJECTIVE: Vital Signs Period Temp Pulse Resp BP Sys/Odell Pulse Ox Last 24 Hr 97.6 F-98.2 F 91-108 20-20 95-140/70-84 97-100 GENERAL: Awake, confused, and Ox2, in no acute distress. HEAD: Normal with no signs of trauma. EYES: Sclera anicteric, conjunctiva clear. No lid lag. NECK: Supple without lymphadenopathy, JVD, or Right soft tissue mass, movable, encapsulated. LUNGS: Breath sounds equal, clear to auscultation bilaterally. No wheezes, and no crackles. No accessory muscle use. HEART: Regular rate and rhythm, normal S1 and S2 without murmur, rub or gallop. ABDOMEN: Soft, nontender, not distended, normoactive bowel sounds, no guarding, no rebound, no masses. No hepatomegaly or splenomegaly. : Goldstein is in Place-draining pink , Actively bleeding from urethral meatus MUSCULOSKELETAL: Normal range of motion at all joints. No bony deformities or tenderness. No CVA tenderness. UPPER EXTREMITIES: 2+ pulses, warm, well-perfused. No cyanosis. No clubbing. No peripheral edema. LOWER EXTREMITIES: 2+ pulses, warm, well-perfused. No calf tenderness. No peripheral edema. NEUROLOGICAL: AAox2, confused SKIN: Warm, dry Active Medications Generic Name Dose Route Start Last Admin Trade Name Freq PRN Reason Stop Dose Admin Amlodipine Besylate 10 mg 12/21/19 10:00 12/23/19 09:28 Norvasc - PO 10 mg DAILY GAURI Administration Diphenhydramine HCl 25 mg 12/20/19 22:00 12/22/19 21:14 Benadryl - PO 25 mg HS GAURI Administration Heparin Sodium (Porcine) 5,000 unit 12/21/19 14:00 12/23/19 06:13 Heparin - SQ 5,000 unit TID GAURI Administration Ceftriaxone Sodium 2 gm/ 100 mls @ 100 mls/hr 12/21/19 10:00 12/23/19 09:28 Dextrose IVPB 100 mls/hr DAILY GAURI Administration Magnesium Oxide 400 mg 12/21/19 22:00 12/23/19 09:28 Mag-Ox - PO Not Given BID GAURI Melatonin 5 mg 12/20/19 22:00 12/22/19 21:14 Melatonin PO 5 mg HS PRN Administration INSOMNIA Potassium Phos/Sodium Phos 1 packet 12/21/19 22:00 12/23/19 06:14 Phos-Nak Packet - PO 12/23/19 14:01 Not Given TID [facility] Tamsulosin HCl 0.4 mg 12/21/19 08:30 12/23/19 09:28 Flomax - PO Not Given DAILY@0830 [facility] ASSESSMENT/PLAN: Denis Morrison Jr is a 84 Y M with a PMH of HTN presented to ER with his for 2 weeks of worsening altered mental status, confusion, decreased PO intake, 15 lbs weight loss, difficulty ambulating. Admitted for sepsis 2/2 to acute complicated cystitis #Acute Metabolic encephalopathy 2/2 UTI - UA Positive for UTI, Urine Cx - Klebsiella, Ceftriaxone D#7 - pt is AAOx2, on going confusion, AAOx3 at baseline, per - CT head: no acute pathology. - Repeat CT: No acute pathology, Mod volume loss w/ ventricular Dilation. Chronic microvascular ischemic changes - Carotid Duplex - moderate atherosclerotic disease, no hemodynamically significant stenosis - Neurology Dr. Gomes on Board: # b/l Hydronephrosis w Fluid collection - CTAB: fluid near the lower pole of the left kidney. A collection inferior and medial to the lower pole of the left kidney measures 5 x 4 x 4.5 cm. - Pelvic/Bladder and Kidney u/s: Mild bilateral hydronephrosis, Over distended urinary bladder with retention - Repeat CT A/P revealed decreased L perinephric collection, decreased hydronephrosis/hydroureters - Urology on board (Dr. Bradford, Nayel): Cystoscopy with TURP today. #KARLO: resolved - 2/2 enlarged prostate, enlarged Prostate on CT with PSA 33.6 - Crea improved s/p goldstein insertion, from 6.4 , today 1.2 - Pelvic/Bladder and Kidney u/s: Mild bilateral hydronephrosis, Over distended urinary bladder with retention - Nephrology on board (Dr. read): stopped IV fluids - Continue tamsulosin #Pancreatic Mass - CTAB: Questionable pancreatic mass. - weight loss + anorexia - CA 19/9 elevated - GI consulted (Dr. Alvarez), Recs: -Will need contrast imaging of the pancreas (MRI or CT scan of abdomen with pancreatic protocol). - MRCP ordered as per GI recommendations: Not completed by radiology - Patient will need further work up as outpatient - Consulted Heme Onc: Needs MRI/MRCP, can be done outpt #TRANSAMINITIS: - improving - unkonw etiology Possibly 2/2 to Pancreatic Mass - will continue to monitor - Negative hep panel - Avoid hepatotoxic agents #HTN: - Continue Norvasc 10mg daily #Hypokalemia #Hypomagnesemia #Hypophosphatemia - repleted. #R. neck mobile subcutaneous mass - CT neck: No solid/fatty/ mass/lipoma, Mod. size calcified plaque @ common carotid bifurcation bilaterally, C-spine multilevel DDD - out pt ENT evaluation #FEN: - No standing fluids - Continue to monitor electrolytes - NPO, cystoscopy today #DVT prophylaxis - Heparin SQ TID #DISPOSITION: - Continue to monitor in [place], Pending Heme onc evaluation, Pending Cystoscopy Visit type - Emergency Visit Emergency Visit: Yes ED Registration Date: 12/16/19 Care time: The patient presented to the Emergency Department on the above date and was hospitalized for further evaluation of their emergent condition. - New Patient This patient is new to me today: No - Critical Care Critical Care patient: No - Discharge Referral Referred to [facility] Med P.C.: No - Medication Review Med list reviewed for High Risk Meds patients 65 and older: Yes ATTENDING PHYSICIAN STATEMENT I saw and evaluated the patient. I reviewed the resident's note and discussed the case with the resident. I agree with the resident's findings and plan as documented. SUBJECTIVE: OBJECTIVE: ASSESSMENT AND PLAN:
[2019-12-23 13:44] LABS: BASO % 0.6 % (0-2.0); EOS % 1.9 % (0-4.5); HEMOGLOBIN 13.6 GM/dL (11.7-16.9); LYMPH % 9.4 % (8-40); MCH 32.9 pg (25.7-33.7); MCHC 33.2 g/dl (32.0-35.9); MEAN CELL VOLUME 99.2 fl (80-96); MEAN PLT VOLUME 7.7 fl (7.5-11.1); MONO % 8.1 % (3.8-10.2); PLATELET COUNT 310 K/MM3 (134-434); RBC 4.13 M/mm3 (4.00-5.60); RDW 14.2 % (11.9-15.9); WHITE BLOOD COUNT 9.2 K/mm3 (4.0-10.0)
[2019-12-23 14:16] LABS: ALBUMIN 2.9 g/dl (3.4-5.0); BILIRUBIN,TOTAL 0.8 mg/dL (0.2-1); BLOOD UREA NITROGEN 17.3 mg/dL (7-18); CALCIUM 8.9 mg/dL (8.5-10.1); CREATININE 1.2 mg/dL (0.55-1.3); PHOSPHOROUS 2.7 mg/dL (2.5-4.9); TOT PROT 7.8 g/dl (6.4-8.2)
--- NOTE | 2019-12-23 14:30 | PN ---
Progress Note, Physician History of Present Illness: Pt seen and examined at bedside. He remains confused. - Current Medication List Current Medications: Active Medications Amlodipine Besylate (Norvasc -) 10 mg PO DAILY [facility] Last Admin: 12/23/19 09:28 Dose: 10 mg Documented by: Diphenhydramine HCl (Benadryl -) 25 mg PO HS [facility] Last Admin: 12/22/19 21:14 Dose: 25 mg Documented by: Heparin Sodium (Porcine) (Heparin -) 5,000 unit SQ TID [facility] Last Admin: 12/23/19 13:12 Dose: Not Given Documented by: Ceftriaxone Sodium 2 gm/ (Dextrose) 100 mls @ 100 mls/hr IVPB DAILY [facility] Last Admin: 12/23/19 09:28 Dose: 100 mls/hr Documented by: Magnesium Oxide (Mag-Ox -) 400 mg PO BID [facility] Last Admin: 12/23/19 09:28 Dose: Not Given Documented by: Melatonin (Melatonin) 5 mg PO HS PRN PRN Reason: INSOMNIA Last Admin: 12/22/19 21:14 Dose: 5 mg Documented by: Tamsulosin HCl (Flomax -) 0.4 mg PO DAILY@0830 [facility] Last Admin: 12/23/19 09:28 Dose: Not Given Documented by: - Objective Vital Signs: Vital Signs Temperature 97.4 F L 12/23/19 09:00 Pulse Rate 91 H 12/23/19 09:00 Respiratory Rate 20 12/23/19 09:00 Blood Pressure 150/88 12/23/19 09:00 O2 Sat by Pulse Oximetry (%) 98 12/23/19 09:00 Constitutional: Yes: Calm Eyes: Yes: Conjunctiva Clear HENT: Yes: Atraumatic Neck: Yes: Supple Cardiovascular: Yes: S1, S2 Respiratory: Yes: CTA Bilaterally Gastrointestinal: Yes: Soft Genitourinary: Yes: Incontinence Edema: No Neurological: Yes: Confusion Labs: CBC, BMP 12/23/19 13:00 12/23/19 13:00 Problem List - Problems (1) KARLO (acute kidney injury) Code(s): N17.9 - ACUTE KIDNEY FAILURE, UNSPECIFIED (2) AMS (altered mental status) Code(s): R41.82 - ALTERED MENTAL STATUS, UNSPECIFIED Qualifiers: Altered mental status type: disorientation Qualified Code(s): R41.0 - Disorientation, unspecified (3) UTI (urinary tract infection) Code(s): N39.0 - URINARY TRACT INFECTION, SITE NOT SPECIFIED Qualifiers: Urinary tract infection type: acute cystitis Hematuria presence: without hematuria Qualified Code(s): N30.00 - Acute cystitis without hematuria Assessment/Plan Current Medications Generic Name Dose Route Start Last Admin Trade Name Freq PRN Reason Stop Dose Admin Amlodipine Besylate 10 mg 12/21/19 10:00 12/23/19 09:28 Norvasc - PO 10 mg DAILY GAURI Administration Diphenhydramine HCl 25 mg 12/20/19 22:00 12/22/19 21:14 Benadryl - PO 25 mg HS GAURI Administration Heparin Sodium (Porcine) 5,000 unit 12/21/19 14:00 12/23/19 13:12 Heparin - SQ Not Given TID GAURI Ceftriaxone Sodium 2 gm/ 100 mls @ 100 mls/hr 12/21/19 10:00 12/23/19 09:28 Dextrose IVPB 100 mls/hr DAILY GAURI Administration Magnesium Oxide 400 mg 12/21/19 22:00 12/23/19 09:28 Mag-Ox - PO Not Given BID GAURI Melatonin 5 mg 12/20/19 22:00 12/22/19 21:14 Melatonin PO 5 mg HS PRN Administration INSOMNIA Tamsulosin HCl 0.4 mg 12/21/19 08:30 12/23/19 09:28 Flomax - PO Not Given DAILY@0830 GAURI Impression 1. KARLO 2. hydronephrosis 3. urinary obstruction 4. weight loss 5. altered mental status 6. uti 7. htn 8. possible pancreatic mass 9. 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
[2019-12-23] MEDS ORDERED: LACTATED RINGERS SOLUTION 1,000 ML IV SCH ×2 (14:45→18:06)
[2019-12-23] MEDS ORDERED: ONDANSETRON 4 MG/2 ML VIAL IVPUSH PRN ×2 (14:45→18:06)
[2019-12-23] MEDS ORDERED: POTASSIUM CHLORIDE 10 MEQ in DEXTROSE 5%-WATER - 1,000 ML IVPB SCH (15:00)
[2019-12-23] MEDS ORDERED: DEXTROSE 5%-WATER - 1,000 ML with POTASSIUM CHLORIDE 10 MEQ IVPB SCH (15:00)
[2019-12-23] MEDS ORDERED: MIDAZOLAM HCL 2 MG/2 ML SINGLE DOSE VIAL ONE (15:32)
[2019-12-23] MEDS ORDERED: ceFAZolin SODIUM 1 GM VIAL IVPB ONE (15:50)
--- NOTE | 2019-12-23 15:53 | PN ---
Teaching Attending Note Name of Resident: Yusra Dominguez ATTENDING PHYSICIAN STATEMENT I saw and evaluated the patient. I reviewed the resident's note and discussed the case with the resident. I agree with the resident's findings and plan as documented. SUBJECTIVE: no complaints. Still a bit confused. No fever/chills. Cystoscopy procedure aborted 12/19 as patient declined IV line by anesthesia. Hematuria due to traumatic goldstein self-removal resolved. OBJECTIVE: Afebrile, hemodynamically stable. AAO x 2, confused but cooperative Last Vital Signs Temp Pulse Resp BP Pulse Ox 97.4 F L 91 H 20 150/88 98 12/23/19 09:00 12/23/19 09:00 12/23/19 09:00 12/23/19 09:00 12/23/19 09:00 HEENT - Atraumatic, R neck mobile subcutaneous mass (non-tender) Heart - S1, S2, SM Lungs - clear to auscultation Abdomen - soft, non-tender. Bowel Sounds normal. Extremities - no edema, no calf tenderness. Neuro - AAO x 2, Moving all 4 extremities. - goldstein in situ draining clear urine. Laboratory Results - last 24 hr 12/23/19 12/23/19 13:00 13:00 WBC 9.2 RBC 4.13 Hgb 13.6 Hct 41.0 MCV 99.2 H MCH 32.9 MCHC 33.2 RDW 14.2 Plt Count 310 MPV 7.7 Absolute Neuts (auto) 7.4 Neutrophils % 80.0 Lymphocytes % 9.4 Monocytes % 8.1 Eosinophils % 1.9 Basophils % 0.6 Nucleated RBC % 0 Sodium 147 H Potassium 4.0 Chloride 117 H Carbon Dioxide 21 Anion Gap 9 BUN 17.3 Creatinine 1.2 Est GFR (CKD-EPI)AfAm 63.52 Est GFR (CKD-EPI)NonAf 54.81 Random Glucose 84 Calcium 8.9 Phosphorus 2.7 Total Bilirubin 0.8 AST 92 H ALT 107 H Alkaline Phosphatase 123 H Total Protein 7.8 Albumin 2.9 L Current Medications Generic Name Dose Route Start Last Admin Trade Name Freq PRN Reason Stop Dose Admin Amlodipine Besylate 10 mg 12/21/19 10:00 12/23/19 09:28 Norvasc - PO 10 mg DAILY GAURI Administration Diphenhydramine HCl 25 mg 12/20/19 22:00 12/22/19 21:14 Benadryl - PO 25 mg HS [facility] Administration Fentanyl 25 mcg 12/23/19 14:45 Sublimaze Injection - IVPUSH [id number] PRN PAIN-PACU ORDER X 4 DOSES ONLY Heparin Sodium (Porcine) 5,000 unit 12/21/19 14:00 12/23/19 13:12 Heparin - SQ Not Given TID [facility] Potassium Chloride 10 meq/ 1,005 mls @ 50 mls/hr 12/23/19 15:00 Dextrose IVPB Q20H [facility] Lactated Ringer's 1,000 mls @ 75 mls/hr 12/23/19 14:45 Lactated Ringers Solution IV ASDIR [facility] Magnesium Oxide 400 mg 12/21/19 22:00 12/23/19 09:28 Mag-Ox - PO Not Given BID [facility] Melatonin 5 mg 12/20/19 22:00 12/22/19 21:14 Melatonin PO 5 mg HS PRN Administration INSOMNIA Ondansetron HCl 4 mg 12/23/19 14:45 Zofran Injection IVPUSH Q6H PRN NAUSEA AND/OR VOMITING Tamsulosin HCl 0.4 mg 12/21/19 08:30 12/23/19 09:28 Flomax - PO Not Given DAILY@0830 [facility] Home Medications Medication Instructions Recorded Allopurinol [Zyloprim -] 100 mg PO DAILY 08/14/18 Amlodipine Besylate 10 mg PO DAILY 08/14/18 Hydrochlorothiazide [Hctz -] 25 mg PO DAILY 12/15/19 Tamsulosin HCl 0.4 mg PO DAILY 12/15/19 ASSESSMENT AND PLAN: 84 year old male with history of Gout, HTN, presents with confusion, weakness, decreased oral intake, increased urinary frequency and dysuria. 1. Acute Metabolic Encephalopathy secondary to UTI/Uremia - ongoing confusion, some agitation AAO x 2, normally oriented at baseline as per . CT head - no acute findings. Repeat CT - no changes, moderate volume loss/ventricular dilatation/microvascular ischemic changes. Carotid Duplex - moderate atherosclerotic disease, no hemodynamically significant stenosis. Urine Cx - Klebsiella, Completed 7 days Ceftriaxone - will stop Afebrile. Hemodynamically Stable. Trial of Remeron did not work, mixed result with Mirtazapine - Dr. Alicea consulted for further guidance/recommendations. 2. KARLO secondary to Obstructive Uropathy sec to BPH - resolved Bilateral Hydronephrosis on Renal US, enlarged Prostate on CT with PSA 33.6 Creat much improved s/p goldstein insertion - Creat now normal from 6.4 at presentation Nephrology following, IV fluids resumed today (D5W) due to rising sodium. Urology recommended Cystoscopy, scheduled 12/19 but Cystoscopy procedure aborted as patient declined IV line by anesthesia - now rescheduled for 12/22. Currently NPO for procedure. Continue Tamsulosin - further recommendations as per Urology. 3. L Renal collection - ?etiology Repeat CT A/P - decreased L perinephric collection, decreased hydronephrosis/hydroureters. Further recommendations as per Urology. 4. Pancreatic Mass (possible), incidental finding on CT A/P CA 19/9 elevated. MRCP/MRI Pancreatic protocol ordered as per GI recommendations - not done by Ra blasogamanda as felt to be an out-patient investigation. Seen by Oncology who agrees to follow as out-patient for MRI and formulation of treatment plan. 5. Elevated LFTs ?etiology - possibly sec to cholestasis sec to Cephalosporin Hepatitis work-up negative Ceftriaxone stopped, monitor LFTs. Further recommendations as per GI. 6. HTN - HCTZ held due to KARLO. Continue Norvasc. 7. Hypokalemia/Hypomagnesemia/Hypophosphatemia - repleted 8. R neck mobile subcutaneous mass (non-tender) - CT Head/Neck - no acute findings, DJD, no mass - for out-patient MRI Neck and ENT eval. DVT Px - Heparin SQ resumed given resolution of hematuria.
--- NOTE | 2019-12-23 16:48 | OP ---
Operative Note - Note: Operative Date: 12/23/19 Pre-Operative Diagnosis: Urinary Retention, BPH Operation: Cysto, TUVP Findings: Obstructive Prostate Post-Operative Diagnosis: Same as Pre-op Surgeon: April Yan Anesthesia: Spinal Drains & Tubes with Location: 22F 30 cc balloon, 3 way goldstein Operative Report Dictated: Yes
--- NOTE | 2019-12-23 17:37 | OP ---
DATE OF OPERATION: 12/23/2019 SURGEON: April Yan MD. ANESTHESIA: Spinal. PREOPERATIVE DIAGNOSIS: Urinary retention and benign prostatic hypertrophy. POSTOPERATIVE DIAGNOSIS: Urinary retention and benign prostatic hypertrophy. PROCEDURE: Cystoscopy and transurethral vaporization of prostate. FINDINGS: Trilobar hypertrophy of the prostate noted, obstructive in nature. Prostatic urethra is about 4.5 cm in length. Bladder shows no evidence of any pathology other than trabeculation. DESCRIPTION OF PROCEDURE: Patient under spinal anesthesia in the lithotomy position was prepped and draped in the usual manner. Using 22 scope, cystoscopy performed using 26 resectoscope. The lateral lobes and the median border were vaporized. Only minimal amount of the procedure was done, considering the advanced age of the patient. At the end of the procedure, a good was noted. Some of the resected tissues removed using Ellik evacuator. All the bleeding points were electrocoagulated. A 22-Chadian, 30-mL balloon 3-way catheter was inserted. Continuous irrigation started. Patient tolerated the procedure well, left the operating room under satisfactory condition. APRIL YAN M.D. [id number]
[2019-12-23] MEDS ORDERED: ceFAZolin SODIUM 1 GM VIAL ONE (18:41)
[2019-12-23] MEDS ORDERED: DEXTROSE 5%-WATER - 50 ML IVPB ONE (18:41)
[2019-12-23] MEDS: CEFAZOLIN 1 GM in DEXTROSE 5%-WATER - 50 ML IVPB SCH (18:43)
[2019-12-23] MEDS: MELATONIN 5 MG TABLETS PO PRN (22:54)
[2019-12-23] MEDS: diphenhydrAMINE HCL 25 MG CAPSULE (FP) PO SCH (22:54)
[2019-12-24] MEDS ORDERED: ceFAZolin SODIUM 1 GM VIAL ONE ×3 (02:41→17:02)
[2019-12-24] MEDS ORDERED: DEXTROSE 5%-WATER - 50 ML IVPB ONE ×3 (02:41→17:03)
[2019-12-24] MEDS: CEFAZOLIN 1 GM in DEXTROSE 5%-WATER - 50 ML IVPB SCH ×3 (02:56→17:09)
[2019-12-24] MEDS: HEPARIN NA (PORCINE) 5,000 UNITS/ML 1ML VIAL SQ SCH ×3 (07:01→21:53)
[2019-12-24 07:35] LABS: BASO % 0.7 % (0-2.0); EOS % 2.1 % (0-4.5); HEMOGLOBIN 12.5 GM/dL (11.7-16.9); LYMPH % 8.3 % (8-40); MCH 32.4 pg (25.7-33.7); MEAN CELL VOLUME 98.2 fl (80-96); MEAN PLT VOLUME 7.7 fl (7.5-11.1); MONO % 9.1 % (3.8-10.2); NEUT % 79.8 % (42.8-82.8); PLATELET COUNT 289 K/MM3 (134-434); RBC 3.86 M/mm3 (4.00-5.60); RDW 14.4 % (11.9-15.9); WHITE BLOOD COUNT 9.8 K/mm3 (4.0-10.0)
[2019-12-24 08:09] LABS: ALBUMIN 2.6 g/dl (3.4-5.0); BILIRUBIN,TOTAL 0.9 mg/dL (0.2-1); CALCIUM 8.4 mg/dL (8.5-10.1); CREATININE 1.1 mg/dL (0.55-1.3); MAGNESIUM 1.7 mg/dL (1.8-2.4); PHOSPHOROUS 2.3 mg/dL (2.5-4.9); POTASSIUM 3.4 mmol/L (3.5-5.1); TOT PROT 6.9 g/dl (6.4-8.2)
[2019-12-24] MEDS: TAMSULOSIN HCL 0.4 MG CAP PO SCH (09:56)
[2019-12-24] MEDS: amLODIPine BESYLATE 10 MG TABLET (FP) PO SCH (09:56)
[2019-12-24] MEDS ORDERED: POTASSIUM CHLORIDE 10 MEQ in DEXTROSE 5%-WATER - 1,000 ML IVPB SCH (11:00)
--- NOTE | 2019-12-24 11:06 | PN ---
Progress Note (short form) - Note Progress Note: Renal function improved. will need contrast imaging of the pancreas. Ideally MRI of abdomen with and without contrast, with MRCP, to evaluate pancreatic duct as well. Problem List - Problems (1) Pancreatic mass Code(s): K86.89 - OTHER SPECIFIED DISEASES OF PANCREAS (2) Transaminitis Code(s): R74.0 - NONSPEC ELEV OF LEVELS OF TRANSAMNS & LACTIC ACID DEHYDRGNSE
[2019-12-24] MEDS ORDERED: MAGNESIUM 1GM/D5W 100ML - 100 ML IVPB IVPB ONE (11:30)
[2019-12-24] MEDS ORDERED: NAPH,MB-DB/K PH,MBDB POWDER PACKET PO ONE (12:00)
[2019-12-24] MEDS ORDERED: DEXTROSE 5%-WATER - 1,000 ML IV SCH (12:00)
--- NOTE | 2019-12-24 14:03 | PN ---
Physical Exam: SUBJECTIVE: Patient seen and examined at bedside. No acute event overnight. No new complaints OBJECTIVE: Vital Signs Period Temp Pulse Resp BP Sys/Odell Pulse Ox Last 24 Hr 97.7 F-98.8 F 81-105 18-22 114-148/66-94 98-100 GENERAL: Awake, confused, and Ox2, in no acute distress. HEAD: Normal with no signs of trauma. EYES: Sclera anicteric, conjunctiva clear. No lid lag. NECK: Supple without lymphadenopathy, JVD, or Right soft tissue mass, movable, encapsulated. LUNGS: Breath sounds equal, clear to auscultation bilaterally. No wheezes, and no crackles. No accessory muscle use. HEART: Regular rate and rhythm, normal S1 and S2 without murmur, rub or gallop. ABDOMEN: Soft, nontender, not distended, normoactive bowel sounds, no guarding, no rebound, no masses. No hepatomegaly or splenomegaly. : Goldstein is in Place-draining pink , Actively bleeding from urethral meatus MUSCULOSKELETAL: Normal range of motion at all joints. No bony deformities or tenderness. No CVA tenderness. UPPER EXTREMITIES: 2+ pulses, warm, well-perfused. No cyanosis. No clubbing. No peripheral edema. LOWER EXTREMITIES: 2+ pulses, warm, well-perfused. No calf tenderness. No peripheral edema. NEUROLOGICAL: AAox2, confused SKIN: Warm, dry Laboratory Results - last 24 hr 12/23/19 12/23/19 12/24/19 13:00 13:00 06:50 WBC 9.2 9.8 RBC 4.13 3.86 L Hgb 13.6 12.5 Hct 41.0 38.0 MCV 99.2 H 98.2 H MCH 32.9 32.4 MCHC 33.2 33.0 RDW 14.2 14.4 Plt Count 310 289 MPV 7.7 7.7 Absolute Neuts (auto) 7.4 7.8 Neutrophils % 80.0 79.8 Lymphocytes % 9.4 8.3 Monocytes % 8.1 9.1 Eosinophils % 1.9 2.1 Basophils % 0.6 0.7 Nucleated RBC % 0 0 Sodium 147 H Potassium 4.0 Chloride 117 H Carbon Dioxide 21 Anion Gap 9 BUN 17.3 Creatinine 1.2 Est GFR (CKD-EPI)AfAm 63.52 Est GFR (CKD-EPI)NonAf 54.81 Random Glucose 84 Calcium 8.9 Phosphorus 2.7 Magnesium Total Bilirubin 0.8 AST 92 H ALT 107 H Alkaline Phosphatase 123 H Total Protein 7.8 Albumin 2.9 L 12/24/19 06:50 WBC RBC Hgb Hct MCV MCH MCHC RDW Plt Count MPV Absolute Neuts (auto) Neutrophils % Lymphocytes % Monocytes % Eosinophils % Basophils % Nucleated RBC % Sodium 148 H Potassium 3.4 L Chloride 117 H Carbon Dioxide 24 Anion Gap 7 L BUN 15.0 Creatinine 1.1 Est GFR (CKD-EPI)AfAm 70.57 Est GFR (CKD-EPI)NonAf 60.89 Random Glucose 75 Calcium 8.4 L Phosphorus 2.3 L Magnesium 1.7 L Total Bilirubin 0.9 AST 93 H ALT 107 H Alkaline Phosphatase 110 Total Protein 6.9 Albumin 2.6 L Active Medications Generic Name Dose Route Start Last Admin Trade Name Freq PRN Reason Stop Dose Admin Amlodipine Besylate 10 mg 12/24/19 10:00 12/24/19 09:56 Norvasc - PO 10 mg DAILY [facility] Administration Diphenhydramine HCl 25 mg 12/23/19 22:00 12/23/19 22:54 Benadryl - PO 25 mg HS [facility] Administration Heparin Sodium (Porcine) 5,000 unit 12/23/19 22:00 12/24/19 13:00 Heparin - SQ 5,000 unit TID [facility] Administration Cefazolin Sodium 1 gm/ 50 mls @ 100 mls/hr 12/23/19 18:00 12/24/19 09:55 Dextrose IVPB 12/25/19 23:59 100 mls/hr Q8H-IV [facility] Administration Lactated Ringer's 1,000 mls @ 75 mls/hr 12/23/19 18:06 12/23/19 18:43 Lactated Ringers Solution IV 75 mls/hr ASDIR [facility] Administration Potassium Chloride 10 meq/ 1,005 mls @ 50 mls/hr 12/24/19 11:00 Dextrose IVPB Q20H [facility] Dextrose 1,000 mls @ 83 mls/hr 12/24/19 12:00 12/24/19 12:59 D5w - IV 83 mls/hr ASDIR [facility] Administration Melatonin 5 mg 12/23/19 18:06 12/23/19 22:54 Melatonin PO 5 mg HS PRN Administration INSOMNIA Tamsulosin HCl 0.4 mg 12/24/19 08:30 12/24/19 09:56 Flomax - PO 0.4 mg DAILY@0830 [facility] Administration ASSESSMENT/PLAN: Denis Morrison Jr is a 84 Y M with a PMH of HTN presented to ER with his for 2 weeks of worsening altered mental status, confusion, decreased PO intake, 15 lbs weight loss, difficulty ambulating. Admitted for sepsis 2/2 to acute complicated cystitis #Acute Metabolic encephalopathy 2/2 UTI - UA Positive for UTI, Urine Cx - Klebsiella, Completed Ceftriaxone D#7 - pt is AAOx2, on going confusion, AAOx3 at baseline, per - CT head: no acute pathology. - Repeat CT: No acute pathology, Mod volume loss w/ ventricular Dilation. Chronic microvascular ischemic changes - Carotid Duplex - moderate atherosclerotic disease, no hemodynamically significant stenosis - Neurology Dr. Gomes on Board: # b/l Hydronephrosis w Fluid collection - CTAB: fluid near the lower pole of the left kidney. A collection inferior and medial to the lower pole of the left kidney measures 5 x 4 x 4.5 cm. - Pelvic/Bladder and Kidney u/s: Mild bilateral hydronephrosis, Over distended urinary bladder with retention - Repeat CT A/P revealed decreased L perinephric collection, decreased hydronephrosis/hydroureters - Urology on board (Dr. Bradford, [facility]): S/P Cystoscopy/TUVP POD#1 CBI #KARLO: resolved - 2/2 enlarged prostate, enlarged Prostate on CT with PSA 33.6 - Crea improved s/p goldstein insertion, from 6.4 , today 1.2 - Pelvic/Bladder and Kidney u/s: Mild bilateral hydronephrosis, Over distended urinary bladder with retention - Nephrology on board (Dr. read): stopped IV fluids - Continue tamsulosin #Pancreatic Mass - CTAB: Questionable pancreatic mass. - weight loss + anorexia - CA 19/9 elevated - GI consulted (Dr. Alvarez), Recs: -Will need contrast imaging of the pancreas (MRI or CT scan of abdomen with pancreatic protocol). - MRCP ordered as per GI recommendations: Not completed by radiology - Patient will need further work up as outpatient - Consulted Heme Onc: Needs MRI/MRCP, can be done outpt #TRANSAMINITIS: - improving - unkonw etiology Possibly 2/2 to Pancreatic Mass - will continue to monitor - Negative hep panel - Avoid hepatotoxic agents #HTN: - Continue Norvasc 10mg daily #Hypokalemia #Hypomagnesemia #Hypophosphatemia - repleted. #R. neck mobile subcutaneous mass - CT neck: No solid/fatty/ mass/lipoma, Mod. size calcified plaque @ common carotid bifurcation bilaterally, C-spine multilevel DDD - out pt ENT evaluation #FEN: - No standing fluids - Continue to monitor electrolytes - NPO, cystoscopy today #DVT prophylaxis - Heparin SQ TID #DISPOSITION: - Continue to monitor in [place] Visit type - Emergency Visit Emergency Visit: Yes ED Registration Date: 12/16/19 Care time: The patient presented to the Emergency Department on the above date and was hospitalized for further evaluation of their emergent condition. - New Patient This patient is new to me today: No - Critical Care Critical Care patient: No - Discharge Referral Referred to [facility] Med [facility] No - Medication Review Med list reviewed for High Risk Meds patients 65 and older: Yes ATTENDING PHYSICIAN STATEMENT I saw and evaluated the patient. I reviewed the resident's note and discussed the case with the resident. I agree with the resident's findings and plan as documented. SUBJECTIVE: OBJECTIVE: ASSESSMENT AND PLAN:
--- NOTE | 2019-12-24 14:27 | PN ---
Teaching Attending Note Name of Resident: Yusra Dominguez ATTENDING PHYSICIAN STATEMENT I saw and evaluated the patient. I reviewed the resident's note and discussed the case with the resident. I agree with the resident's findings and plan as documented. SUBJECTIVE: pt seen and examined OBJECTIVE: Last Vital Signs Temp Pulse Resp BP Pulse Ox 98.8 F 94 H 20 142/94 98 12/24/19 10:00 12/24/19 10:00 12/24/19 10:00 12/24/19 10:00 12/24/19 10:00 HEENT - Atraumatic, R neck mobile subcutaneous mass (non-tender) Heart - S1, S2, SM Lungs - clear to auscultation Abdomen - soft, non-tender. Bowel Sounds normal. Extremities - no edema, no calf tenderness. Neuro - AAO x 2, Moving all 4 extremities. - goldstein in situ draining clear urine. CBCD WBC 9.8 K/mm3 (4.0-10.0) 12/24/19 06:50 RBC 3.86 M/mm3 (4.00-5.60) L 12/24/19 06:50 Hgb 12.5 GM/dL (11.7-16.9) 12/24/19 06:50 Hct 38.0 % (35.4-49) 12/24/19 06:50 MCV 98.2 fl (80-96) H 12/24/19 06:50 MCHC 33.0 g/dl (32.0-35.9) 12/24/19 06:50 RDW 14.4 % (11.9-15.9) 12/24/19 06:50 Plt Count 289 K/MM3 (134-434) 12/24/19 06:50 MPV 7.7 fl (7.5-11.1) 12/24/19 06:50 CMP Sodium 148 mmol/L (136-145) H 12/24/19 06:50 Potassium 3.4 mmol/L (3.5-5.1) L 12/24/19 06:50 Chloride 117 mmol/L (98-107) H 12/24/19 06:50 Carbon Dioxide 24 mmol/L (21-32) 12/24/19 06:50 Anion Gap 7 MMOL/L (8-16) L 12/24/19 06:50 BUN 15.0 mg/dL (7-18) 12/24/19 06:50 Creatinine 1.1 mg/dL (0.55-1.3) 12/24/19 06:50 Calcium 8.4 mg/dL (8.5-10.1) L 12/24/19 06:50 Total Bilirubin 0.9 mg/dL (0.2-1) 12/24/19 06:50 AST 93 U/L (15-37) H 12/24/19 06:50 ALT 107 U/L (13-61) H 12/24/19 06:50 Alkaline Phosphatase 110 U/L (45-117) 12/24/19 06:50 Total Protein 6.9 g/dl (6.4-8.2) 12/24/19 06:50 Albumin 2.6 g/dl (3.4-5.0) L 12/24/19 06:50 Active Medications Amlodipine Besylate (Norvasc -) 10 mg PO DAILY [facility] Last Admin: 12/24/19 09:56 Dose: 10 mg Documented by: Diphenhydramine HCl (Benadryl -) 25 mg PO HS [facility] Last Admin: 12/23/19 22:54 Dose: 25 mg Documented by: Heparin Sodium (Porcine) (Heparin -) 5,000 unit SQ TID [facility] Last Admin: 12/24/19 13:00 Dose: 5,000 unit Documented by: Cefazolin Sodium 1 gm/ (Dextrose) 50 mls @ 100 mls/hr IVPB Q8H-IV [facility] Stop: 12/25/19 23:59 Last Admin: 12/24/19 09:55 Dose: 100 mls/hr Documented by: Lactated Ringer's (Lactated Ringers Solution) 1,000 mls @ 75 mls/hr IV ASDIR [facility] Last Admin: 12/23/19 18:43 Dose: 75 mls/hr Documented by: Potassium Chloride 10 meq/ (Dextrose) 1,005 mls @ 50 mls/hr IVPB Q20H [facility] Dextrose (D5w -) 1,000 mls @ 83 mls/hr IV ASDIR [facility] Last Admin: 12/24/19 12:59 Dose: 83 mls/hr Documented by: Melatonin (Melatonin) 5 mg PO HS PRN PRN Reason: INSOMNIA Last Admin: 12/23/19 22:54 Dose: 5 mg Documented by: Tamsulosin HCl (Flomax -) 0.4 mg PO DAILY@0830 [facility] Last Admin: 12/24/19 09:56 Dose: 0.4 mg Documented by: ASSESSMENT AND PLAN: 84 year old male with history of Gout, HTN, presents with confusion, weakness, decreased oral intake, increased urinary frequency and dysuria. # Acute Metabolic Encephalopathy UTI/Uremia/ obstructive uropathy still confusion, some agitation CT head - no changes, moderate volume loss/ventricular dilatation/microvascular ischemic changes. Carotid Duplex - moderate atherosclerotic disease, no hemodynamically significant stenosis. completed ABx Afebrile. Hemodynamically Stable. Trial of Remeron did not work, mixed result with Mirtazapine Dr. Alicea consulted for further guidance/recommendations. Urology following KARLO on CKD BPH Bilateral Hydronephrosis hypernatremia (will start D5W) Pancreatic Mass (possible), incidental finding on CT A/P, CA 19/9 elevated. will need MRCP/ERCP LFTs trending up (medication vs mass) HTN DVT Px - Heparin SQ resumed given resolution of hematuria
[2019-12-24] MEDS ORDERED: POTASSIUM PHOSPHATE 15 MM in DEXTROSE 5%-WATER - 250 ML IVPB ONE (15:48)
--- NOTE | 2019-12-24 17:23 | PN ---
Progress Note, Physician History of Present Illness: Pt seen and examined at bedside. He remains confused. - Current Medication List Current Medications: Active Medications Amlodipine Besylate (Norvasc -) 10 mg PO DAILY [facility] Last Admin: 12/24/19 09:56 Dose: 10 mg Documented by: Diphenhydramine HCl (Benadryl -) 25 mg PO HS [facility] Last Admin: 12/23/19 22:54 Dose: 25 mg Documented by: Heparin Sodium (Porcine) (Heparin -) 5,000 unit SQ TID [facility] Last Admin: 12/24/19 13:00 Dose: 5,000 unit Documented by: Cefazolin Sodium 1 gm/ (Dextrose) 50 mls @ 100 mls/hr IVPB Q8H-IV [facility] Stop: 12/25/19 23:59 Last Admin: 12/24/19 17:09 Dose: 100 mls/hr Documented by: Dextrose (D5w -) 1,000 mls @ 83 mls/hr IV ASDIR [facility] Last Admin: 12/24/19 12:59 Dose: 83 mls/hr Documented by: Potassium Phosphate 15 mm/ (Dextrose) 255 mls @ 42.5 mls/hr IVPB ONCE ONE Stop: 12/24/19 21:47 Last Admin: 12/24/19 17:11 Dose: 42.5 mls/hr Documented by: Melatonin (Melatonin) 5 mg PO HS PRN PRN Reason: INSOMNIA Last Admin: 12/23/19 22:54 Dose: 5 mg Documented by: Tamsulosin HCl (Flomax -) 0.4 mg PO DAILY@0830 [facility] Last Admin: 12/24/19 09:56 Dose: 0.4 mg Documented by: - Objective Vital Signs: Vital Signs Temperature 98.3 F 12/24/19 15:00 Pulse Rate 94 H 12/24/19 15:00 Respiratory Rate 20 12/24/19 15:00 Blood Pressure 123/57 L 12/24/19 15:00 O2 Sat by Pulse Oximetry (%) 98 12/24/19 15:00 Constitutional: Yes: Calm Eyes: Yes: Conjunctiva Clear HENT: Yes: Atraumatic Neck: Yes: Supple Cardiovascular: Yes: S1, S2 Respiratory: Yes: CTA Bilaterally Gastrointestinal: Yes: Normal Bowel Sounds, Soft Genitourinary: Yes: Campbell Present Musculoskeletal: Yes: WNL Edema: No Neurological: Yes: Confusion Labs: CBC, BMP 12/24/19 06:50 12/24/19 06:50 Problem List - Problems (1) KARLO (acute kidney injury) Code(s): N17.9 - ACUTE KIDNEY FAILURE, UNSPECIFIED (2) AMS (altered mental status) Code(s): R41.82 - ALTERED MENTAL STATUS, UNSPECIFIED Qualifiers: Altered mental status type: disorientation Qualified Code(s): R41.0 - Disorientation, unspecified (3) UTI (urinary tract infection) Code(s): N39.0 - URINARY TRACT INFECTION, SITE NOT SPECIFIED Qualifiers: Urinary tract infection type: acute cystitis Hematuria presence: without hematuria Qualified Code(s): N30.00 - Acute cystitis without hematuria Assessment/Plan Current Medications Generic Name Dose Route Start Last Admin Trade Name Freq PRN Reason Stop Dose Admin Amlodipine Besylate 10 mg 12/24/19 10:00 12/24/19 09:56 Norvasc - PO 10 mg DAILY [facility] Administration Diphenhydramine HCl 25 mg 12/23/19 22:00 12/23/19 22:54 Benadryl - PO 25 mg HS [facility] Administration Heparin Sodium (Porcine) 5,000 unit 12/23/19 22:00 12/24/19 13:00 Heparin - SQ 5,000 unit TID [facility] Administration Cefazolin Sodium 1 gm/ 50 mls @ 100 mls/hr 12/23/19 18:00 12/24/19 17:09 Dextrose IVPB 12/25/19 23:59 100 mls/hr Q8H-IV [facility] Administration Dextrose 1,000 mls @ 83 mls/hr 12/24/19 12:00 12/24/19 12:59 D5w - IV 83 mls/hr ASDIR [facility] Administration Potassium Phosphate 15 mm/ 255 mls @ 42.5 mls/hr 12/24/19 15:48 12/24/19 17:11 Dextrose IVPB 12/24/19 21:47 42.5 mls/hr ONCE ONE Administration Melatonin 5 mg 12/23/19 18:06 12/23/19 22:54 Melatonin PO 5 mg HS PRN Administration INSOMNIA Tamsulosin HCl 0.4 mg 12/24/19 08:30 12/24/19 09:56 Flomax - PO 0.4 mg DAILY@0830 [facility] Administration Impression 1. KARLO 2. hydronephrosis 3. urinary obstruction 4. weight loss 5. altered mental status 6. uti 7. htn 8. possible pancreatic mass 9. hypernatremia 10. hypokalemia Plan - agree with d5w - add potassium to fluids - repeat labs in am - pt remains confused - monitor mag levels - discussed with medical team
[2019-12-24] MEDS: POTASSIUM CHLORIDE 20 MEQ in DEXTROSE 5%-WATER - 1,000 ML IVPB SCH (18:18)
[2019-12-24] MEDS: diphenhydrAMINE HCL 25 MG CAPSULE (FP) PO SCH (21:53)
[2019-12-25] MEDS ORDERED: DEXTROSE 5%-WATER - 50 ML IVPB ONE ×3 (01:06→17:39)
[2019-12-25] MEDS ORDERED: ceFAZolin SODIUM 1 GM VIAL ONE ×3 (01:06→17:39)
[2019-12-25] MEDS: CEFAZOLIN 1 GM in DEXTROSE 5%-WATER - 50 ML IVPB SCH ×3 (01:12→17:41)
[2019-12-25] MEDS: HEPARIN NA (PORCINE) 5,000 UNITS/ML 1ML VIAL SQ SCH ×3 (06:08→21:20)
--- NOTE | 2019-12-25 06:24 | PN.GI ---
GI Progress Note Subjective: NO COMPLAINTS - AWAKE / ALERT -- DOES NOT ANSWER QUESTIONS WELL - Objective Vital Signs: Vital Signs Temperature 97.9 F 12/24/19 21:00 Pulse Rate 81 12/24/19 21:00 Respiratory Rate 12/24/19 21:00 Blood Pressure 121/64 12/24/19 21:00 O2 Sat by Pulse Oximetry (%) 98 12/24/19 21:00 Constitutional: Well Nourished, No Distress, Calm Cardiovascular: Yes: WNL Respiratory: Yes: WNL, Regular, CTA Bilaterally Gastrointestinal Inspection: Yes: WNL ...Auscultate: Yes: Normoactive Bowel Sounds Edema: No Labs: CBC, BMP 12/24/19 06:50 12/24/19 06:50 Problem List - Problems (1) KARLO (acute kidney injury) Assessment/Plan: AWAIT MRCP WITH CONTRAST TO FURTHER EVALUATE FOR PANCREATIC MASS - DIET TOLERATED Code(s): N17.9 - ACUTE KIDNEY FAILURE, UNSPECIFIED (2) AMS (altered mental status) Code(s): R41.82 - ALTERED MENTAL STATUS, UNSPECIFIED Qualifiers: Altered mental status type: disorientation Qualified Code(s): R41.0 - Disorientation, unspecified (3) Pancreatic mass Code(s): K86.89 - OTHER SPECIFIED DISEASES OF PANCREAS (4) Transaminitis Code(s): R74.0 - NONSPEC ELEV OF LEVELS OF TRANSAMNS & LACTIC ACID DEHYDRGNSE
[2019-12-25] MEDS: POTASSIUM CHLORIDE 20 MEQ in DEXTROSE 5%-WATER - 1,000 ML IVPB SCH (06:39)
[2019-12-25 08:27] LABS: BASO % 0.6 % (0-2.0); EOS % 2.9 % (0-4.5); HEMATOCRIT 33.1 % (35.4-49); HEMOGLOBIN 11.1 GM/dL (11.7-16.9); LYMPH % 9.7 % (8-40); MCH 32.7 pg (25.7-33.7); MCHC 33.6 g/dl (32.0-35.9); MEAN CELL VOLUME 97.3 fl (80-96); MEAN PLT VOLUME 8.3 fl (7.5-11.1); MONO % 9.6 % (3.8-10.2); NEUT % 77.2 % (42.8-82.8); PLATELET COUNT 250 K/MM3 (134-434); RDW 13.9 % (11.9-15.9); WHITE BLOOD COUNT 7.6 K/mm3 (4.0-10.0)
[2019-12-25 08:50] LABS: ALBUMIN 2.3 g/dl (3.4-5.0); BILIRUBIN,TOTAL 0.6 mg/dL (0.2-1); CREATININE 0.9 mg/dL (0.55-1.3); MAGNESIUM 1.8 mg/dL (1.8-2.4); PHOSPHOROUS 1.7 mg/dL (2.5-4.9); POTASSIUM 3.2 mmol/L (3.5-5.1); TOT PROT 6.1 g/dl (6.4-8.2)
[2019-12-25] MEDS: TAMSULOSIN HCL 0.4 MG CAP PO SCH (09:00)
[2019-12-25] MEDS ORDERED: POTASSIUM CHLORIDE ORAL LIQUID 20 MEQ/15 ML PO ONE (09:27)
[2019-12-25] MEDS: amLODIPine BESYLATE 10 MG TABLET (FP) PO SCH (09:35)
[2019-12-25] MEDS: KCL 10 MEQ IVPB 10 MEQ/100 ML INFUS.BAG IVPB SCH ×2 (11:33→13:41)
[2019-12-25] MEDS: NAPH,MB-DB/K PH,MBDB POWDER PACKET PO SCH ×2 (11:33→21:20)
--- NOTE | 2019-12-25 12:15 | PN ---
Progress Note, Physician History of Present Illness: Pt seen and examined at bedside. He is awake but confused. - Current Medication List Current Medications: Active Medications Amlodipine Besylate (Norvasc -) 10 mg PO DAILY [facility] Last Admin: 12/25/19 09:35 Dose: 10 mg Documented by: Diphenhydramine HCl (Benadryl -) 25 mg PO HS [facility] Last Admin: 12/24/19 21:53 Dose: 25 mg Documented by: Heparin Sodium (Porcine) (Heparin -) 5,000 unit SQ TID [facility] Last Admin: 12/25/19 06:08 Dose: 5,000 unit Documented by: Cefazolin Sodium 1 gm/ (Dextrose) 50 mls @ 100 mls/hr IVPB Q8H-IV [facility] Stop: 12/25/19 23:59 Last Admin: 12/25/19 09:35 Dose: 100 mls/hr Documented by: Melatonin (Melatonin) 5 mg PO HS PRN PRN Reason: INSOMNIA Last Admin: 12/23/19 22:54 Dose: 5 mg Documented by: Potassium Phos/Sodium Phos (Phos-Nak Packet -) 1 packet PO BID [facility] Stop: 12/26/19 22:01 Last Admin: 12/25/19 11:33 Dose: 1 packet Documented by: Tamsulosin HCl (Flomax -) 0.4 mg PO DAILY@0830 [facility] Last Admin: 12/25/19 09:00 Dose: 0.4 mg Documented by: - Objective Vital Signs: Vital Signs Temperature 97.8 F 12/25/19 06:00 Pulse Rate 82 12/25/19 06:00 Respiratory Rate 20 12/25/19 06:00 Blood Pressure 140/80 12/25/19 06:00 O2 Sat by Pulse Oximetry (%) 95 12/25/19 06:00 Constitutional: Yes: Calm Eyes: Yes: Conjunctiva Clear HENT: Yes: Atraumatic Neck: Yes: Supple Cardiovascular: Yes: S1, S2 Respiratory: Yes: CTA Bilaterally Gastrointestinal: Yes: Soft Genitourinary: Yes: Campbell Present Musculoskeletal: Yes: WNL Edema: No Integumentary: Yes: WNL Neurological: Yes: Confusion Labs: CBC, BMP 12/25/19 07:30 12/25/19 07:30 Problem List - Problems (1) KARLO (acute kidney injury) Code(s): N17.9 - ACUTE KIDNEY FAILURE, UNSPECIFIED (2) AMS (altered mental status) Code(s): R41.82 - ALTERED MENTAL STATUS, UNSPECIFIED Qualifiers: Altered mental status type: disorientation Qualified Code(s): R41.0 - Disorientation, unspecified (3) UTI (urinary tract infection) Code(s): N39.0 - URINARY TRACT INFECTION, SITE NOT SPECIFIED Qualifiers: Urinary tract infection type: acute cystitis Hematuria presence: without hematuria Qualified Code(s): N30.00 - Acute cystitis without hematuria Assessment/Plan Current Medications Generic Name Dose Route Start Last Admin Trade Name Freq PRN Reason Stop Dose Admin Amlodipine Besylate 10 mg 12/24/19 10:00 12/25/19 09:35 Norvasc - PO 10 mg DAILY [facility] Administration Diphenhydramine HCl 25 mg 12/23/19 22:00 12/24/19 21:53 Benadryl - PO 25 mg HS [facility] Administration Heparin Sodium (Porcine) 5,000 unit 12/23/19 22:00 12/25/19 06:08 Heparin - SQ 5,000 unit TID [facility] Administration Cefazolin Sodium 1 gm/ 50 mls @ 100 mls/hr 12/23/19 18:00 12/25/19 09:35 Dextrose IVPB 12/25/19 23:59 100 mls/hr Q8H-IV [facility] Administration Melatonin 5 mg 12/23/19 18:06 12/23/19 22:54 Melatonin PO 5 mg HS PRN Administration INSOMNIA Potassium Phos/Sodium Phos 1 packet 12/25/19 10:00 12/25/19 11:33 Phos-Nak Packet - PO 12/26/19 22:01 1 packet BID [facility] Administration Tamsulosin HCl 0.4 mg 12/24/19 08:30 12/25/19 09:00 Flomax - PO 0.4 mg DAILY@0830 [facility] Administration Impression 1. KARLO 2. hydronephrosis 3. urinary obstruction 4. weight loss 5. altered mental status 6. uti 7. htn 8. possible pancreatic mass 9. hypernatremia 10. hypokalemia Plan - sodium improved - can d/c fluids - repeat labs in am - encourage po intake - discussed with medical team
--- NOTE | 2019-12-25 13:51 | PN ---
Teaching Attending Note Name of Resident: Yusra Dominguez ATTENDING PHYSICIAN STATEMENT I saw and evaluated the patient. I reviewed the resident's note and discussed the case with the resident. I agree with the resident's findings and plan as documented. SUBJECTIVE: pt seen and examined OBJECTIVE: Last Vital Signs Temp Pulse Resp BP Pulse Ox 97.8 F 82 20 140/80 95 12/25/19 06:00 12/25/19 06:00 12/25/19 06:00 12/25/19 06:00 12/25/19 06:00 HEENT - Atraumatic, R neck mobile subcutaneous mass (non-tender) Heart - S1, S2, SM Lungs - clear to auscultation Abdomen - soft, non-tender. Bowel Sounds normal. Extremities - no edema, no calf tenderness. Neuro - AAO x 2, Moving all 4 extremities. - goldstein in situ draining clear urine. CBCD WBC 7.6 K/mm3 (4.0-10.0) 12/25/19 07:30 RBC 3.40 M/mm3 (4.00-5.60) L 12/25/19 07:30 Hgb 11.1 GM/dL (11.7-16.9) L 12/25/19 07:30 Hct 33.1 % (35.4-49) L 12/25/19 07:30 MCV 97.3 fl (80-96) H 12/25/19 07:30 MCHC 33.6 g/dl (32.0-35.9) 12/25/19 07:30 RDW 13.9 % (11.9-15.9) 12/25/19 07:30 Plt Count 250 K/MM3 (134-434) 12/25/19 07:30 MPV 8.3 fl (7.5-11.1) 12/25/19 07:30 CMP Sodium 141 mmol/L (136-145) 12/25/19 07:30 Potassium 3.2 mmol/L (3.5-5.1) L 12/25/19 07:30 Chloride 111 mmol/L (98-107) H 12/25/19 07:30 Carbon Dioxide 25 mmol/L (21-32) 12/25/19 07:30 Anion Gap 5 MMOL/L (8-16) L 12/25/19 07:30 BUN 11.0 mg/dL (7-18) 12/25/19 07:30 Creatinine 0.9 mg/dL (0.55-1.3) 12/25/19 07:30 Calcium 8.0 mg/dL (8.5-10.1) L 12/25/19 07:30 Total Bilirubin 0.6 mg/dL (0.2-1) 12/25/19 07:30 AST 126 U/L (15-37) H 12/25/19 07:30 ALT 122 U/L (13-61) H 12/25/19 07:30 Alkaline Phosphatase 97 U/L (45-117) 12/25/19 07:30 Total Protein 6.1 g/dl (6.4-8.2) L 12/25/19 07:30 Albumin 2.3 g/dl (3.4-5.0) L 12/25/19 07:30 Active Medications Amlodipine Besylate (Norvasc -) 10 mg PO DAILY [facility] Last Admin: 12/25/19 09:35 Dose: 10 mg Documented by: Diphenhydramine HCl (Benadryl -) 25 mg PO HS [facility] Last Admin: 12/24/19 21:53 Dose: 25 mg Documented by: Heparin Sodium (Porcine) (Heparin -) 5,000 unit SQ TID [facility] Last Admin: 12/25/19 13:41 Dose: 5,000 unit Documented by: Cefazolin Sodium 1 gm/ (Dextrose) 50 mls @ 100 mls/hr IVPB Q8H-IV [facility] Stop: 12/25/19 23:59 Last Admin: 12/25/19 09:35 Dose: 100 mls/hr Documented by: Melatonin (Melatonin) 5 mg PO HS PRN PRN Reason: INSOMNIA Last Admin: 12/23/19 22:54 Dose: 5 mg Documented by: Potassium Phos/Sodium Phos (Phos-Nak Packet -) 1 packet PO BID [facility] Stop: 12/26/19 22:01 Last Admin: 12/25/19 11:33 Dose: 1 packet Documented by: Tamsulosin HCl (Flomax -) 0.4 mg PO DAILY@0830 [facility] Last Admin: 12/25/19 09:00 Dose: 0.4 mg Documented by: ASSESSMENT AND PLAN: 84 year old male with history of Gout, HTN, presents with confusion, weakness, decreased oral intake, increased urinary frequency and dysuria. # Acute Metabolic Encephalopathy UTI/Uremia/ obstructive uropathy still confusion. annoyed by goldstein completed ABx Afebrile. Hemodynamically Stable TOV today Urology following KARLO on CKD BPH Bilateral Hydronephrosis hypernatremia (will start D5W) Pancreatic Mass (possible), incidental finding on CT A/P, CA 19/9 elevated. will need outpatient MRCP/ERCP LFTs trending up (medication vs mass) HTN DVT Px - Heparin SQ
--- NOTE | 2019-12-25 17:27 | CON.PSY ---
Psychiatry Consult Chief Complaint: 84 year old Mlberna witha History of DEmentia Servere seen for Psych eval for restlessness and agiation. Constantly banging on the table and wants to leave the Hospital.. Symptoms: reports: Memory Impairment, Irritability, Oppositionalism - Previous Psychiatric Treatment Outpatient: None Inpatient: None - Previous Substance Abuse Treatment Outpatient: None Inpatient: None - Current Medications Current Medications: Active Medications Amlodipine Besylate (Norvasc -) 10 mg PO DAILY [facility] Last Admin: 12/25/19 09:35 Dose: 10 mg Documented by: Diphenhydramine HCl (Benadryl -) 25 mg PO HS [facility] Last Admin: 12/24/19 21:53 Dose: 25 mg Documented by: Heparin Sodium (Porcine) (Heparin -) 5,000 unit SQ TID [facility] Last Admin: 12/25/19 13:41 Dose: 5,000 unit Documented by: Cefazolin Sodium 1 gm/ (Dextrose) 50 mls @ 100 mls/hr IVPB Q8H-IV [facility] Stop: 12/25/19 23:59 Last Admin: 12/25/19 09:35 Dose: 100 mls/hr Documented by: Melatonin (Melatonin) 5 mg PO HS PRN PRN Reason: INSOMNIA Last Admin: 12/23/19 22:54 Dose: 5 mg Documented by: Potassium Phos/Sodium Phos (Phos-Nak Packet -) 1 packet PO BID [facility] Stop: 12/26/19 22:01 Last Admin: 12/25/19 11:33 Dose: 1 packet Documented by: Tamsulosin HCl (Flomax -) 0.4 mg PO DAILY@0830 [facility] Last Admin: 12/25/19 09:00 Dose: 0.4 mg Documented by: - Allergies Allergies: Allergies Allergy/AdvReac Type Severity Reaction Status Date / Time ciprofloxacin [From Cipro] Allergy Verified 08/14/18 20:20 - Current Living Status Usual Living Arrangement: With Spouse - Current Mental Status Evaluation Appearance: Well Groomed Attitude: Guarded - Affect Affect: Constrictive Appropriateness: Not Appropriate - Speech/Language Expressive: Delayed - Psychomotor Activity Psychomotor Activity: Hyperactive - Thought Content Delusions: Absent - Self Perception Self Perception: No Impairment - Cognition Attention: Diminished Memory, Immediate Recall: Impaired Memory, Short Term: 1/3 Memory, Remote with Promptin/3 - Concentration Serial Sevens Intact: No - Abstraction Proverb Interpretation: Amity Judgement: Moderately Impaired - Insight Insight: Impaired - Impulse Control Impulse Control: Moderately Impaired - Suicidal Ideation Suicidal Ideation: No - Homicidal Ideation Homicidal Ideation: No Assessment/Plan !) Depakote ER Sprinkiles 125 mg po bid for [id number] and agitation.
--- NOTE | 2019-12-25 17:40 | PN ---
Physical Exam: SUBJECTIVE: Patient seen and examined at bedside. No acute events overnight. This morning patient was again confused and disoriented. OBJECTIVE: Vital Signs Period Temp Pulse Resp BP Sys/Odell Pulse Ox Last 24 Hr 97.5 F-98.6 F 81-92 20-20 121-154/62-80 95-98 GENERAL: Awake, confused, and Ox2, in no acute distress. HEAD: Normal with no signs of trauma. EYES: Sclera anicteric, conjunctiva clear. No lid lag. NECK: Supple without lymphadenopathy, JVD, or Right soft tissue mass, movable, encapsulated. LUNGS: Breath sounds equal, clear to auscultation bilaterally. No wheezes, and no crackles. No accessory muscle use. HEART: Regular rate and rhythm, normal S1 and S2 without murmur, rub or gallop. ABDOMEN: Soft, nontender, not distended, normoactive bowel sounds, no guarding, no rebound, no masses. No hepatomegaly or splenomegaly. : Goldstein is in Place-draining pink , Actively bleeding from urethral meatus MUSCULOSKELETAL: Normal range of motion at all joints. No bony deformities or tenderness. No CVA tenderness. UPPER EXTREMITIES: 2+ pulses, warm, well-perfused. No cyanosis. No clubbing. No peripheral edema. LOWER EXTREMITIES: 2+ pulses, warm, well-perfused. No calf tenderness. No peripheral edema. NEUROLOGICAL: AAox2, confused SKIN: Warm, dry Laboratory Results - last 24 hr 12/25/19 12/25/19 07:30 07:30 WBC 7.6 RBC 3.40 L Hgb 11.1 L Hct 33.1 L MCV 97.3 H MCH 32.7 MCHC 33.6 RDW 13.9 Plt Count 250 MPV 8.3 Absolute Neuts (auto) 5.9 Neutrophils % 77.2 Lymphocytes % 9.7 Monocytes % 9.6 Eosinophils % 2.9 Basophils % 0.6 Nucleated RBC % 0 Sodium 141 Potassium 3.2 L Chloride 111 H Carbon Dioxide 25 Anion Gap 5 L BUN 11.0 Creatinine 0.9 Est GFR (CKD-EPI)AfAm 89.95 Est GFR (CKD-EPI)NonAf 77.61 Random Glucose 99 Calcium 8.0 L Phosphorus 1.7 L Magnesium 1.8 Total Bilirubin 0.6 AST 126 H ALT 122 H Alkaline Phosphatase 97 Total Protein 6.1 L Albumin 2.3 L Active Medications Generic Name Dose Route Start Last Admin Trade Name Tuckerq PRN Reason Stop Dose Admin Amlodipine Besylate 10 mg 12/24/19 10:00 12/25/19 09:35 Norvasc - PO 10 mg DAILY [facility] Administration Diphenhydramine HCl 25 mg 12/23/19 22:00 12/24/19 21:53 Benadryl - PO 25 mg HS [facility] Administration Divalproex Sodium 125 mg 12/25/19 22:00 Depakote Sprinkle Caps - PO BID [facility] Heparin Sodium (Porcine) 5,000 unit 12/23/19 22:00 12/25/19 13:41 Heparin - SQ 5,000 unit TID [facility] Administration Cefazolin Sodium 1 gm/ 50 mls @ 100 mls/hr 12/23/19 18:00 12/25/19 09:35 Dextrose IVPB 12/25/19 23:59 100 mls/hr Q8H-IV [facility] Administration Melatonin 5 mg 12/23/19 18:06 12/23/19 22:54 Melatonin PO 5 mg HS PRN Administration INSOMNIA Potassium Phos/Sodium Phos 1 packet 12/25/19 10:00 12/25/19 11:33 Phos-Nak Packet - PO 12/26/19 22:01 1 packet BID [facility] Administration Tamsulosin HCl 0.4 mg 12/24/19 08:30 12/25/19 09:00 Flomax - PO 0.4 mg DAILY@0830 [facility] Administration ASSESSMENT/PLAN: Denis Morrison Jr is a 84 Y M with a PMH of HTN presented to ER with his for 2 weeks of worsening altered mental status, confusion, decreased PO intake, 15 lbs weight loss, difficulty ambulating. Admitted for sepsis 2/2 to acute complicated cystitis #Acute Metabolic encephalopathy 2/2 UTI - UA Positive for UTI, Urine Cx - Klebsiella, Completed Ceftriaxone D#7 - pt is AAOx2, on going confusion, AAOx3 at baseline, per - CT head: no acute pathology. - Repeat CT: No acute pathology, Mod volume loss w/ ventricular Dilation. Chronic microvascular ischemic changes - Carotid Duplex - moderate atherosclerotic disease, no hemodynamically significant stenosis - Neurology Dr. Gomes on Board: # b/l Hydronephrosis w Fluid collection - CTAB: fluid near the lower pole of the left kidney. A collection inferior and medial to the lower pole of the left kidney measures 5 x 4 x 4.5 cm. - Pelvic/Bladder and Kidney u/s: Mild bilateral hydronephrosis, Over distended urinary bladder with retention - Repeat CT A/P revealed decreased L perinephric collection, decreased hydronephrosis/hydroureters - Urology on board (Dr. Bradford, Nayel): S/P Cystoscopy/TUVP POD#2 -D/c ed Goldstein, Voiding trials, Patient is not voiding, Bladder scan showed 130 mls, will reeval again in the morning #KARLO: resolved - 2/2 enlarged prostate, enlarged Prostate on CT with PSA 33.6 - Crea improved s/p goldstein insertion, from 6.4 , today 1.2 - Pelvic/Bladder and Kidney u/s: Mild bilateral hydronephrosis, Over distended urinary bladder with retention - Nephrology on board (Dr. read): stopped IV fluids - Continue tamsulosin #Pancreatic Mass - CTAB: Questionable pancreatic mass. - weight loss + anorexia - CA 19/9 elevated - GI consulted (Dr. Alvarez), Recs: -Will need contrast imaging of the pancreas (MRI or CT scan of abdomen with pancreatic protocol). - MRCP ordered as per GI recommendations: Not completed by radiology - Patient will need further work up as outpatient - Consulted Heme Onc: Needs MRI/MRCP, can be done outpt #TRANSAMINITIS: - improving - unkonw etiology Possibly 2/2 to Pancreatic Mass - will continue to monitor - Negative hep panel - Avoid hepatotoxic agents #HTN: - Continue Norvasc 10mg daily #Hypokalemia #Hypomagnesemia #Hypophosphatemia - repleted. #R. neck mobile subcutaneous mass - CT neck: No solid/fatty/ mass/lipoma, Mod. size calcified plaque @ common carotid bifurcation bilaterally, C-spine multilevel DDD - out pt ENT evaluation #FEN: - No standing fluids - Continue to monitor electrolytes - NPO, cystoscopy today #DVT prophylaxis - Heparin SQ TID #DISPOSITION: - Continue to monitor in [place] Visit type - Emergency Visit Emergency Visit: Yes ED Registration Date: 12/16/19 Care time: The patient presented to the Emergency Department on the above date and was hospitalized for further evaluation of their emergent condition. - New Patient This patient is new to me today: No - Critical Care Critical Care patient: No - Discharge Referral Referred to [facility] Med P.C.: Yes - Medication Review Med list reviewed for High Risk Meds patients 65 and older: Yes ATTENDING PHYSICIAN STATEMENT I saw and evaluated the patient. I reviewed the resident's note and discussed the case with the resident. I agree with the resident's findings and plan as documented. SUBJECTIVE: OBJECTIVE: ASSESSMENT AND PLAN:
[2019-12-25] MEDS: diphenhydrAMINE HCL 25 MG CAPSULE (FP) PO SCH (21:19)
[2019-12-25] MEDS: DIVALPROEX SODIUM 125 MG SPRINKLE CAPS PO SCH (21:19)
[2019-12-25] MEDS: MELATONIN 5 MG TABLETS PO PRN (21:20)
--- NOTE | 2019-12-25 22:54 | PN ---
Teaching Attending Note Name of Resident: Rosmery Wright ATTENDING PHYSICIAN STATEMENT I saw and evaluated the patient. I reviewed the resident's note and discussed the case with the resident. I agree with the resident's findings and plan as documented. ASSESSMENT AND PLAN: 84 y/o with -- 1. KARLO 2. hydronephrosis 3. urinary obstruction 4. weight loss 5. altered mental status 6. uti 7. htn 8. possible pancreatic mass 9. hypernatremia 10. hypokalemia dementia/delirium possible pancreatic mass recommend goals of care discussion with family before pursuing further w/u
[2019-12-26] MEDS ORDERED: ceFAZolin SODIUM 1 GM VIAL ONE (01:07)
[2019-12-26] MEDS ORDERED: DEXTROSE 5%-WATER - 50 ML IVPB ONE (01:07)
[2019-12-26] MEDS: HEPARIN NA (PORCINE) 5,000 UNITS/ML 1ML VIAL SQ SCH ×3 (05:57→22:57)
[2019-12-26 08:24] LABS: BASO % 0.6 % (0-2.0); EOS % 3.8 % (0-4.5); HEMATOCRIT 36.9 % (35.4-49); HEMOGLOBIN 12.4 GM/dL (11.7-16.9); LYMPH % 14.8 % (8-40); MCH 33.1 pg (25.7-33.7); MCHC 33.6 g/dl (32.0-35.9); MEAN CELL VOLUME 98.5 fl (80-96); MEAN PLT VOLUME 8.2 fl (7.5-11.1); MONO % 10.6 % (3.8-10.2); NEUT % 70.2 % (42.8-82.8); PLATELET COUNT 263 K/MM3 (134-434); RBC 3.74 M/mm3 (4.00-5.60); RDW 14.2 % (11.9-15.9); WHITE BLOOD COUNT 7.2 K/mm3 (4.0-10.0)
[2019-12-26 08:47] LABS: POTASSIUM 3.8 mmol/L (3.5-5.1)
[2019-12-26 09:07] LABS: ALBUMIN 2.5 g/dl (3.4-5.0); BILIRUBIN,TOTAL 0.8 mg/dL (0.2-1); CALCIUM 8.5 mg/dL (8.5-10.1); CREATININE 0.9 mg/dL (0.55-1.3); MAGNESIUM 1.8 mg/dL (1.8-2.4); PHOSPHOROUS 1.6 mg/dL (2.5-4.9); TOT PROT 6.9 g/dl (6.4-8.2)
[2019-12-26] MEDS: NAPH,MB-DB/K PH,MBDB POWDER PACKET PO SCH ×2 (10:09→22:57)
[2019-12-26] MEDS: amLODIPine BESYLATE 10 MG TABLET (FP) PO SCH (10:09)
[2019-12-26] MEDS: DIVALPROEX SODIUM 125 MG SPRINKLE CAPS PO SCH ×2 (10:09→22:57)
[2019-12-26] MEDS: TAMSULOSIN HCL 0.4 MG CAP PO SCH (10:23)
[2019-12-26] MEDS ORDERED: POTASSIUM PHOSPHATE 15 MM in DEXTROSE 5%-WATER - 250 ML IVPB ONE (10:45)
--- NOTE | 2019-12-26 12:45 | PN ---
Teaching Attending Note Name of Resident: Yusra Dominguez ATTENDING PHYSICIAN STATEMENT I saw and evaluated the patient. I reviewed the resident's note and discussed the case with the resident. I agree with the resident's findings and plan as documented. SUBJECTIVE: pt seen and examined OBJECTIVE: Last Vital Signs Temp Pulse Resp BP Pulse Ox 98.5 F 99 H 20 136/58 L 97 12/26/19 06:00 12/26/19 06:00 12/26/19 06:00 12/26/19 06:00 12/26/19 06:00 HEENT - Atraumatic, R neck mobile subcutaneous mass (non-tender) Heart - S1, S2, SM Lungs - clear to auscultation Abdomen - soft, non-tender. Bowel Sounds normal. Extremities - no edema, no calf tenderness. Neuro - AAO x 2, Moving all 4 extremities. - goldstein in situ draining clear urine. CBCD WBC 7.2 K/mm3 (4.0-10.0) 12/26/19 07:20 RBC 3.74 M/mm3 (4.00-5.60) L 12/26/19 07:20 Hgb 12.4 GM/dL (11.7-16.9) 12/26/19 07:20 Hct 36.9 % (35.4-49) 12/26/19 07:20 MCV 98.5 fl (80-96) H 12/26/19 07:20 MCHC 33.6 g/dl (32.0-35.9) 12/26/19 07:20 RDW 14.2 % (11.9-15.9) 12/26/19 07:20 Plt Count 263 K/MM3 (134-434) 12/26/19 07:20 MPV 8.2 fl (7.5-11.1) 12/26/19 07:20 CMP Sodium 140 mmol/L (136-145) 12/26/19 07:20 Potassium 3.8 mmol/L (3.5-5.1) 12/26/19 07:20 Chloride 110 mmol/L (98-107) H 12/26/19 07:20 Carbon Dioxide 22 mmol/L (21-32) 12/26/19 07:20 Anion Gap 9 MMOL/L (8-16) 12/26/19 07:20 BUN 8.0 mg/dL (7-18) 12/26/19 07:20 Creatinine 0.9 mg/dL (0.55-1.3) 12/26/19 07:20 Calcium 8.5 mg/dL (8.5-10.1) 12/26/19 07:20 Total Bilirubin 0.8 mg/dL (0.2-1) 12/26/19 07:20 AST 156 U/L (15-37) H 12/26/19 07:20 ALT 160 U/L (13-61) H 12/26/19 07:20 Alkaline Phosphatase 106 U/L (45-117) 12/26/19 07:20 Total Protein 6.9 g/dl (6.4-8.2) 12/26/19 07:20 Albumin 2.5 g/dl (3.4-5.0) L 12/26/19 07:20 Active Medications Amlodipine Besylate (Norvasc -) 10 mg PO DAILY [facility] Last Admin: 12/26/19 10:09 Dose: 10 mg Documented by: Diphenhydramine HCl (Benadryl -) 25 mg PO HS [facility] Last Admin: 12/25/19 21:19 Dose: 25 mg Documented by: Divalproex Sodium (Depakote Sprinkle Caps -) 125 mg PO BID [facility] Last Admin: 12/26/19 10:09 Dose: 125 mg Documented by: Heparin Sodium (Porcine) (Heparin -) 5,000 unit SQ TID [facility] Last Admin: 12/26/19 05:57 Dose: 5,000 unit Documented by: Potassium Phosphate 15 mm/ (Dextrose) 255 mls @ 42.5 mls/hr IVPB ONCE ONE Stop: 12/26/19 16:44 Melatonin (Melatonin) 5 mg PO PRN PRN Reason: INSOMNIA Last Admin: 12/25/19 21:20 Dose: 5 mg Documented by: Potassium Phos/Sodium Phos (Phos-Nak Packet -) 1 packet PO BID [facility] Stop: 12/26/19 22:01 Last Admin: 12/26/19 10:09 Dose: 1 packet Documented by: Tamsulosin HCl (Flomax -) 0.4 mg PO DAILY@0830 [facility] Last Admin: 12/26/19 10:23 Dose: 0.4 mg Documented by: ASSESSMENT AND PLAN: 84 year old male with history of Gout, HTN, presents with confusion, weakness, decreased oral intake, increased urinary frequency and dysuria. # Acute Metabolic Encephalopathy UTI/Uremia/ obstructive uropathy still confusion. completed ABx Afebrile. Hemodynamically Stable TOV Urology following #Pancreatic Mass incidental finding on CT A/P, CA 19/9 elevated. will need MRCP/ERCP LFTs trending up need to discuss goals of care with family KARLO on CKD BPH Bilateral Hydronephrosis hypernatremia (will start D5W) LFTs trending up (medication vs mass) HTN DVT Px - Heparin SQ
--- NOTE | 2019-12-26 13:21 | PN ---
Physical Exam: SUBJECTIVE: Patient seen and examined at bedside. denies acute complaints. OBJECTIVE: Vital Signs Period Temp Pulse Resp BP Sys/Odell Pulse Ox Last 24 Hr 97.5 F-99.1 F 78-99 18-20 109-142/55-72 96-99 GENERAL: The patient is lethargic, responds to commands HEAD: Normal with no signs of trauma. ENT: Ears normal, nares patent, oropharynx clear without exudates, moist mucous membranes. LUNGS: Breath sounds equal, clear to auscultation bilaterally, no accessory muscle use. HEART: Regular rate and rhythm, S1, S2 ABDOMEN: Soft, nontender, nondistended, normoactive bowel sounds, no guarding EXTREMITIES: 2+ pulses, warm, well-perfused, no edema. SKIN: Warm, dry, normal turgor, no rashes or lesions noted Laboratory Results - last 24 hr 12/26/19 12/26/19 07:20 07:20 WBC 7.2 RBC 3.74 L Hgb 12.4 Hct 36.9 MCV 98.5 H MCH 33.1 MCHC 33.6 RDW 14.2 Plt Count 263 MPV 8.2 Absolute Neuts (auto) 5.1 Neutrophils % 70.2 Lymphocytes % 14.8 D Monocytes % 10.6 H Eosinophils % 3.8 Basophils % 0.6 Nucleated RBC % 0 Sodium 140 Potassium 3.8 Chloride 110 H Carbon Dioxide 22 Anion Gap 9 BUN 8.0 Creatinine 0.9 Est GFR (CKD-EPI)AfAm 89.95 Est GFR (CKD-EPI)NonAf 77.61 Random Glucose 80 Calcium 8.5 Phosphorus 1.6 L Magnesium 1.8 Total Bilirubin 0.8 AST 156 H ALT 160 H Alkaline Phosphatase 106 Total Protein 6.9 Albumin 2.5 L Active Medications Generic Name Dose Route Start Last Admin Trade Name Freq PRN Reason Stop Dose Admin Amlodipine Besylate 10 mg 12/24/19 10:00 12/26/19 10:09 Norvasc - PO 10 mg DAILY [facility] Administration Diphenhydramine HCl 25 mg 12/23/19 22:00 12/25/19 21:19 Benadryl - PO 25 mg HS [facility] Administration Divalproex Sodium 125 mg 12/25/19 22:00 12/26/19 10:09 Depakote Sprinkle Caps - PO 125 mg BID [facility] Administration Heparin Sodium (Porcine) 5,000 unit 12/23/19 22:00 12/26/19 05:57 Heparin - SQ 5,000 unit TID [facility] Administration Potassium Phosphate 15 mm/ 255 mls @ 42.5 mls/hr 12/26/19 10:45 12/26/19 12:47 Dextrose IVPB 12/26/19 16:44 42.5 mls/hr ONCE ONE Administration Melatonin 5 mg 12/23/19 18:06 12/25/19 21:20 Melatonin PO 5 mg HS PRN Administration INSOMNIA Potassium Phos/Sodium Phos 1 packet 12/25/19 10:00 12/26/19 10:09 Phos-Nak Packet - PO 12/26/19 22:01 1 packet BID [facility] Administration Tamsulosin HCl 0.4 mg 12/24/19 08:30 12/26/19 10:23 Flomax - PO 0.4 mg DAILY@0830 [facility] Administration ASSESSMENT/PLAN: 84 yo M PMH of HTN presented to ER for 2 weeks of worsening altered mental status, confusion, decreased PO intake, 15 lbs weight loss, difficulty ambulating. Admitted for sepsis 2/2 to acute complicated cystitis Acute Metabolic encephalopathy likely 2/2 UTI,uremia - UA Positive for UTI, Urine Cx - Klebsiella, Completed Ceftriaxone x7d - pt is AAOx2, on going confusion - CT head: no acute pathology. - Repeat CT: No acute pathology, Mod volume loss w/ ventricular Dilation. Chronic microvascular ischemic changes - Carotid Duplex - moderate atherosclerotic disease, no hemodynamically significant stenosis - Neurology Dr. Gomes on Board: b/l Hydronephrosis w Fluid collection - CTAB: fluid near the lower pole of the left kidney. A collection inferior and medial to the lower pole of the left kidney measures 5 x 4 x 4.5 cm. - Pelvic/Bladder and Kidney u/s: Mild bilateral hydronephrosis, Over distended urinary bladder with retention - Repeat CT A/P revealed decreased L perinephric collection, decreased hydronephrosis/hydroureters - Urology on board (Dr. Bradford, Camila).S/P Cystoscopy/TUVP -failed TOV. spoke with urology. put in 18 F goldstein, increase flomax, will add bethanchol tid KARLO: resolved - 2/2 enlarged prostate, enlarged Prostate on CT with PSA 33.6 - Cr improved -TOV , goldstein removed last night and required straight cath early am . will bladder scan - Pelvic/Bladder and Kidney u/s: Mild bilateral hydronephrosis, Over distended urinary bladder with retention - Nephrology (Dr. read) recs appreciated Pancreatic Mass - CTAB: Questionable pancreatic mass. - weight loss + anorexia - CA 19/9 elevated - GI consulted (Dr. Alvarez), Recs: -Will need contrast imaging of the pancreas (MRI or CT scan of abdomen with pancreatic protocol). - MRCP ordered as per GI recommendations: Not completed by radiology - Patient will need further work up as outpatient - Consulted Heme Onc TRANSAMINITIS: - improving - unkonw etiology Possibly 2/2 to Pancreatic Mass - will continue to monitor - Negative hep panel - Avoid hepatotoxic agents HTN: - Continue Norvasc 10mg daily continue to replete electrolytes as needed R. neck mobile subcutaneous mass - CT neck: No solid/fatty/ mass/lipoma, Mod. size calcified plaque @ common carotid bifurcation bilaterally, C-spine multilevel DDD - out pt ENT evaluation DVT prophylaxis : Heparin SQ TID will rpt covid swab ATTENDING PHYSICIAN STATEMENT I saw and evaluated the patient. I reviewed the resident's note and discussed the case with the resident. I agree with the resident's findings and plan as documented. SUBJECTIVE: OBJECTIVE: ASSESSMENT AND PLAN:
--- NOTE | 2019-12-26 16:22 | PATH ---
Surgical Pathology Report Patient Name: PERNELL DEVINE JR Med. Rec. #: [id number] /Age/Gender: 1935 (Age: 84) / M Account: [id number] Location: [facility] MED/SURG Taken: 12/23/2019 Received: 12/24/2019 Reported: 12/26/2019 Physicians: Sienna Gomez M.D. Specimen(s) Received PROSTATE CHIPS Clinical History Acute kidney injury Final Diagnosis PROSTATE CHIPS, TRANSURETHRAL RESECTION OF THE PROSTATE: BENIGN PROSTATIC TISSUE WITH GLANDULAR AND STROMAL HYPERPLASIA, ACUTE AND CHRONIC PROSTATITIS. ADJACENT UROTHELIAL MUCOSA WITH ACUTE AND CHRONIC INFLAMMATION. Electronically Signed Mika Stallworth M.D. Gross Description Received in formalin labeled "prostate chips," is a 2 g, 4.2 x 4.0 x 0.4 cm aggregate dickens, irregular, firm to rubbery portions of tissue, consistent with prostate chips. The specimen is entirely submitted in 4 cassettes. /12/24/2019 saudi/12/24/2019
--- NOTE | 2019-12-26 17:07 | PN ---
Progress Note, Physician History of Present Illness: Pt seen and examined at bedside. He remains confused. - Current Medication List Current Medications: Active Medications Amlodipine Besylate (Norvasc -) 10 mg PO DAILY [facility] Last Admin: 12/26/19 10:09 Dose: 10 mg Documented by: Bethanechol Chloride (Urecholine -) 25 mg PO TID [facility] Diphenhydramine HCl (Benadryl -) 25 mg PO HS [facility] Last Admin: 12/25/19 21:19 Dose: 25 mg Documented by: Divalproex Sodium (Depakote Sprinkle Caps -) 125 mg PO BID [facility] Last Admin: 12/26/19 10:09 Dose: 125 mg Documented by: Heparin Sodium (Porcine) (Heparin -) 5,000 unit SQ TID [facility] Last Admin: 12/26/19 15:54 Dose: 5,000 unit Documented by: Melatonin (Melatonin) 5 mg PO HS PRN PRN Reason: INSOMNIA Last Admin: 12/25/19 21:20 Dose: 5 mg Documented by: Potassium Phos/Sodium Phos (Phos-Nak Packet -) 1 packet PO BID [facility] Stop: 12/26/19 22:01 Last Admin: 12/26/19 10:09 Dose: 1 packet Documented by: Tamsulosin HCl (Flomax -) 0.8 mg PO DAILY@0830 [facility] - Objective Vital Signs: Vital Signs Temperature 98.0 F 12/26/19 14:00 Pulse Rate 80 12/26/19 14:00 Respiratory Rate 18 12/26/19 14:00 Blood Pressure 106/58 L 12/26/19 14:00 O2 Sat by Pulse Oximetry (%) 99 12/26/19 14:00 Constitutional: Yes: Calm Eyes: Yes: Conjunctiva Clear HENT: Yes: Atraumatic Cardiovascular: Yes: S1, S2 Respiratory: Yes: CTA Bilaterally Gastrointestinal: Yes: Soft Genitourinary: Yes: Incontinence Musculoskeletal: Yes: Muscle Weakness Edema: No Neurological: Yes: Oriented Psychiatric: Yes: Oriented Labs: CBC, BMP 12/26/19 07:20 12/26/19 07:20 Problem List - Problems (1) KARLO (acute kidney injury) Code(s): N17.9 - ACUTE KIDNEY FAILURE, UNSPECIFIED (2) AMS (altered mental status) Code(s): R41.82 - ALTERED MENTAL STATUS, UNSPECIFIED Qualifiers: Altered mental status type: disorientation Qualified Code(s): R41.0 - Disorientation, unspecified (3) UTI (urinary tract infection) Code(s): N39.0 - URINARY TRACT INFECTION, SITE NOT SPECIFIED Qualifiers: Urinary tract infection type: acute cystitis Hematuria presence: without hematuria Qualified Code(s): N30.00 - Acute cystitis without hematuria Assessment/Plan Current Medications Generic Name Dose Route Start Last Admin Trade Name Freq PRN Reason Stop Dose Admin Amlodipine Besylate 10 mg 12/24/19 10:00 12/26/19 10:09 Norvasc - PO 10 mg DAILY [facility] Administration Bethanechol Chloride 25 mg 12/26/19 22:00 Urecholine - PO TID [facility] Diphenhydramine HCl 25 mg 12/23/19 22:00 12/25/19 21:19 Benadryl - PO 25 mg HS [facility] Administration Divalproex Sodium 125 mg 12/25/19 22:00 12/26/19 10:09 Depakote Sprinkle Caps - PO 125 mg BID [facility] Administration Heparin Sodium (Porcine) 5,000 unit 12/23/19 22:00 12/26/19 15:54 Heparin - SQ 5,000 unit TID [facility] Administration Melatonin 5 mg 12/23/19 18:06 12/25/19 21:20 Melatonin PO 5 mg HS PRN Administration INSOMNIA Potassium Phos/Sodium Phos 1 packet 12/25/19 10:00 12/26/19 10:09 Phos-Nak Packet - PO 12/26/19 22:01 1 packet BID [facility] Administration Tamsulosin HCl 0.8 mg 12/27/19 08:30 Flomax - PO DAILY@0830 [facility] Impression 1. KARLO 2. hydronephrosis 3. urinary obstruction 4. weight loss 5. altered mental status 6. uti 7. htn 8. possible pancreatic mass 9. hypernatremia 10. hypokalemia Plan - replace phos - monitor output - repeat labs in am - encourage po intake - discussed with medical team - monitor rishi
[2019-12-26] MEDS ORDERED: INSULIN (NOVOLOG) ASPART 100 UNITS/ML 10ML VIAL ONE (18:34)
[2019-12-26] MEDS: diphenhydrAMINE HCL 25 MG CAPSULE (FP) PO SCH (22:57)
[2019-12-26] MEDS: BETHANECHOL CHLORIDE 25 MG TABLET PO SCH (22:57)
[2019-12-27] MEDS: HEPARIN NA (PORCINE) 5,000 UNITS/ML 1ML VIAL SQ SCH ×4 (07:04→23:54)
[2019-12-27] MEDS: BETHANECHOL CHLORIDE 25 MG TABLET PO SCH ×4 (07:04→23:54)
[2019-12-27 08:22] LABS: ALBUMIN 2.6 g/dl (3.4-5.0); BLOOD UREA NITROGEN 8.8 mg/dL (7-18); CALCIUM 8.7 mg/dL (8.5-10.1); MAGNESIUM 1.7 mg/dL (1.8-2.4); POTASSIUM 3.8 mmol/L (3.5-5.1)
[2019-12-27 08:26] LABS: BILIRUBIN,TOTAL 0.6 mg/dL (0.2-1); TOT PROT 7.3 g/dl (6.4-8.2)
[2019-12-27] MEDS ORDERED: PT OWN MED DRAWER 7, Y5N ONE (09:21)
[2019-12-27] MEDS: TAMSULOSIN HCL 0.4 MG CAP PO SCH (09:47)
[2019-12-27] MEDS: amLODIPine BESYLATE 10 MG TABLET (FP) PO SCH (09:47)
[2019-12-27] MEDS: DIVALPROEX SODIUM 125 MG SPRINKLE CAPS PO SCH ×3 (09:47→23:53)
--- NOTE | 2019-12-27 12:55 | PN ---
Physical Exam: SUBJECTIVE: Patient seen and examined at bedside. No new complaints, patient is still confused. OBJECTIVE: Vital Signs Period Temp Pulse Resp BP Sys/Odell Pulse Ox Last 24 Hr 97.7 F-99.1 F 70-95 18-20 105-148/52-70 97-99 GENERAL: Awake, confused, and Ox2, in no acute distress. HEAD: Normal with no signs of trauma. EYES: Sclera anicteric, conjunctiva clear. No lid lag. NECK: Supple without lymphadenopathy, JVD, or Right soft tissue mass, movable, encapsulated. LUNGS: Breath sounds equal, clear to auscultation bilaterally. No wheezes, and no crackles. No accessory muscle use. HEART: Regular rate and rhythm, normal S1 and S2 without murmur, rub or gallop. ABDOMEN: Soft, nontender, not distended, normoactive bowel sounds, no guarding, no rebound, no masses. No hepatomegaly or splenomegaly. : Goldstein is in Place-draining brown ,No active bleeding MUSCULOSKELETAL: Normal range of motion at all joints. No bony deformities or tenderness. No CVA tenderness. UPPER EXTREMITIES: 2+ pulses, warm, well-perfused. No cyanosis. No clubbing. No peripheral edema. LOWER EXTREMITIES: 2+ pulses, warm, well-perfused. No calf tenderness. No peripheral edema. NEUROLOGICAL: AAox2, confused SKIN: Warm, dry Laboratory Results - last 24 hr 12/26/19 12/27/19 12:45 07:28 Sodium 140 Potassium 3.8 Chloride 109 H Carbon Dioxide 22 Anion Gap 9 BUN 8.8 Creatinine 1.0 Est GFR (CKD-EPI)AfAm 79.19 Est GFR (CKD-EPI)NonAf 68.33 Random Glucose 79 Calcium 8.7 Phosphorus 2.0 L Magnesium 1.7 L Total Bilirubin 0.6 AST 129 H ALT 158 H Alkaline Phosphatase 115 Total Protein 7.3 Albumin 2.6 L COVID-19 (OZ) Not detected Active Medications Generic Name Dose Route Start Last Admin Trade Name Freq PRN Reason Stop Dose Admin Amlodipine Besylate 10 mg 12/24/19 10:00 12/27/19 09:47 Norvasc - PO 10 mg DAILY GAURI Administration Bethanechol Chloride 25 mg 12/26/19 22:00 12/27/19 07:04 Urecholine - PO 25 mg TID GAURI Administration Diphenhydramine HCl 25 mg 12/23/19 22:00 12/26/19 22:57 Benadryl - PO 25 mg HS GAURI Administration Divalproex Sodium 125 mg 12/25/19 22:00 12/27/19 09:47 Depakote Sprinkle Caps - PO 125 mg BID GAURI Administration Heparin Sodium (Porcine) 5,000 unit 12/23/19 22:00 12/27/19 07:04 Heparin - SQ 5,000 unit TID GAURI Administration Melatonin 5 mg 12/23/19 18:06 12/25/19 21:20 Melatonin PO 5 mg HS PRN Administration INSOMNIA Tamsulosin HCl 0.8 mg 12/27/19 08:30 12/27/19 09:47 Flomax - PO 0.8 mg DAILY@0830 GAURI Administration ASSESSMENT/PLAN: 84 yo M PMH of HTN presented to ER for 2 weeks of worsening altered mental status, confusion, decreased PO intake, 15 lbs weight loss, difficulty ambulating. Admitted for sepsis 2/2 to acute complicated cystitis #Acute Metabolic encephalopathy likely 2/2 UTI,uremia - UA Positive for UTI, Urine Cx - Klebsiella, Completed Ceftriaxone x7d - pt is AAOx2, on going confusion - CT head: no acute pathology. - Repeat CT: No acute pathology, Mod volume loss w/ ventricular Dilation. Chronic microvascular ischemic changes - Carotid Duplex - moderate atherosclerotic disease, no hemodynamically significant stenosis - Neurology Dr. Gomes on Board, recs appreciated #b/l Hydronephrosis w Fluid collection - CTAB: fluid near the lower pole of the left kidney. A collection inferior and medial to the lower pole of the left kidney measures 5 x 4 x 4.5 cm. - Pelvic/Bladder and Kidney u/s: Mild bilateral hydronephrosis, Over distended urinary bladder with retention - Repeat CT A/P revealed decreased L perinephric collection, decreased hydronephrosis/hydroureters - Urology on board (Dr. Bradford, Camila).S/P Cystoscopy/TUVP - failed TOV. spoke with urology. put in 18 F goldstein, increase flomax, added bethanchol tid #KARLO: resolved - 2/2 enlarged prostate, enlarged Prostate on CT with PSA 33.6 - Cr improved -TOV , goldstein removed last night and required straight cath early am . will bladder scan - Pelvic/Bladder and Kidney u/s: Mild bilateral hydronephrosis, Over distended urinary bladder with retention - Nephrology (Dr. 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 - weight loss + anorexia - CA 19/9 elevated - GI consulted (Dr. Alvarez), Recs: -Will need contrast imaging of the pancreas (MRI or CT scan of abdomen with pancreatic protocol). - MRCP ordered as per GI recommendations: Not completed by radiology - Patient will need further work up as outpatient - Consulted Heme Onc, recs appreciated #TRANSAMINITIS: - improving - unkonw etiology Possibly 2/2 to Pancreatic Mass - will continue to monitor - Negative hep panel - Avoid hepatotoxic agents #HTN: - Continue Norvasc 10mg daily #R. neck mobile subcutaneous mass - CT neck: No solid/fatty/ mass/lipoma, Mod. size calcified plaque @ common carotid bifurcation bilaterally, C-spine multilevel DDD - out pt ENT evaluation #FEN: - No standing fluids - Continue to monitor electrolytes and will continue to replete as needed - Normal diet #DVT prophylaxis : Heparin SQ TID Dispo: Continue to monitor on MS, will reach out to the family today to discuss goals of care, Pending palliative care eval Visit type - Emergency Visit Emergency Visit: Yes ED Registration Date: 12/16/19 Care time: The patient presented to the Emergency Department on the above date and was hospitalized for further evaluation of their emergent condition. - New Patient This patient is new to me today: No - Critical Care Critical Care patient: No - Discharge Referral Referred to [facility] No - Medication Review Med list reviewed for High Risk Meds patients 65 and older: Yes ATTENDING PHYSICIAN STATEMENT I saw and evaluated the patient. I reviewed the resident's note and discussed the case with the resident. I agree with the resident's findings and plan as documented. SUBJECTIVE: OBJECTIVE: ASSESSMENT AND PLAN:
--- NOTE | 2019-12-27 13:50 | PN ---
Teaching Attending Note Name of Resident: Ysura Dominguez ATTENDING PHYSICIAN STATEMENT I saw and evaluated the patient. I reviewed the resident's note and discussed the case with the resident. I agree with the resident's findings and plan as documented. SUBJECTIVE: pt seen and examined OBJECTIVE: Last Vital Signs Temp Pulse Resp BP Pulse Ox 98.6 F 95 H 20 148/69 98 12/27/19 09:54 12/27/19 09:54 12/27/19 09:54 12/27/19 09:54 12/27/19 09:54 HEENT - Atraumatic, R neck mobile subcutaneous mass (non-tender) Heart - S1, S2, SM Lungs - clear to auscultation Abdomen - soft, non-tender. Bowel Sounds normal. Extremities - no edema, no calf tenderness. Neuro - AAO x 2, Moving all 4 extremities. - goldstein in situ draining clear urine. CBCD WBC 7.2 K/mm3 (4.0-10.0) 12/26/19 07:20 RBC 3.74 M/mm3 (4.00-5.60) L 12/26/19 07:20 Hgb 12.4 GM/dL (11.7-16.9) 12/26/19 07:20 Hct 36.9 % (35.4-49) 12/26/19 07:20 MCV 98.5 fl (80-96) H 12/26/19 07:20 MCHC 33.6 g/dl (32.0-35.9) 12/26/19 07:20 RDW 14.2 % (11.9-15.9) 12/26/19 07:20 Plt Count 263 K/MM3 (134-434) 12/26/19 07:20 MPV 8.2 fl (7.5-11.1) 12/26/19 07:20 CMP Sodium 140 mmol/L (136-145) 12/27/19 07:28 Potassium 3.8 mmol/L (3.5-5.1) 12/27/19 07:28 Chloride 109 mmol/L (98-107) H 12/27/19 07:28 Carbon Dioxide 22 mmol/L (21-32) 12/27/19 07:28 Anion Gap 9 MMOL/L (8-16) 12/27/19 07:28 BUN 8.8 mg/dL (7-18) 12/27/19 07:28 Creatinine 1.0 mg/dL (0.55-1.3) 12/27/19 07:28 Calcium 8.7 mg/dL (8.5-10.1) 12/27/19 07:28 Total Bilirubin 0.6 mg/dL (0.2-1) 12/27/19 07:28 AST 129 U/L (15-37) H 12/27/19 07:28 ALT 158 U/L (13-61) H 12/27/19 07:28 Alkaline Phosphatase 115 U/L (45-117) 12/27/19 07:28 Total Protein 7.3 g/dl (6.4-8.2) 12/27/19 07:28 Albumin 2.6 g/dl (3.4-5.0) L 12/27/19 07:28 Active Medications Amlodipine Besylate (Norvasc -) 10 mg PO DAILY [facility] Last Admin: 12/27/19 09:47 Dose: 10 mg Documented by: Bethanechol Chloride (Urecholine -) 25 mg PO TID [facility] Last Admin: 12/27/19 13:35 Dose: 25 mg Documented by: Diphenhydramine HCl (Benadryl -) 25 mg PO HS [facility] Last Admin: 12/26/19 22:57 Dose: 25 mg Documented by: Divalproex Sodium (Depakote Sprinkle Caps -) 125 mg PO BID [facility] Last Admin: 12/27/19 09:47 Dose: 125 mg Documented by: Heparin Sodium (Porcine) (Heparin -) 5,000 unit SQ TID [facility] Last Admin: 12/27/19 13:35 Dose: 5,000 unit Documented by: Melatonin (Melatonin) 5 mg PO HS PRN PRN Reason: INSOMNIA Last Admin: 12/25/19 21:20 Dose: 5 mg Documented by: Tamsulosin HCl (Flomax -) 0.8 mg PO DAILY@0830 [facility] Last Admin: 12/27/19 09:47 Dose: 0.8 mg Documented by: ASSESSMENT AND PLAN: 84 year old male with history of Gout, HTN, presents with confusion, weakness, decreased oral intake, increased urinary frequency and dysuria. # Acute Metabolic Encephalopathy UTI/Uremia/ obstructive uropathy still confusion. completed ABx Afebrile. Hemodynamically Stable TOV Urology following #Pancreatic Mass incidental finding on CT A/P, CA 19/9 elevated. will need MRCP/ERCP LFTs trended up need to discuss goals of care with family, still attempting to reach the but no answers, VM left with a request to call back KARLO on CKD BPH Bilateral Hydronephrosis hypernatremia (will start D5W) LFTs trending up (medication vs mass) HTN DVT Px - Heparin SQ
--- NOTE | 2019-12-27 14:13 | PN ---
Progress Note (short form) - Note Progress Note: Transaminitis persists: Avoid hepatotoxic agents. ? need for continued depakote Check hepatitis A/B panel, HCV diagnostic Renal function has improved. If patient can cooperate MRI of abdomen with and without contrast with MRCP for further evaluation of suspected pancreatic mass seen on non contrast imaging. If cannot cooperate, CT scan of the abdomen with contrast Problem List - Problems (1) Pancreatic mass Code(s): K86.89 - OTHER SPECIFIED DISEASES OF PANCREAS (2) Transaminitis Code(s): R74.0 - NONSPEC ELEV OF LEVELS OF TRANSAMNS & LACTIC ACID DEHYDRGNSE
--- NOTE | 2019-12-27 14:56 | PN ---
Progress Note, Physician History of Present Illness: Pt seen and examined at bedside. He is awake but confused. - Current Medication List Current Medications: Active Medications Amlodipine Besylate (Norvasc -) 10 mg PO DAILY [facility] Last Admin: 12/27/19 09:47 Dose: 10 mg Documented by: Bethanechol Chloride (Urecholine -) 25 mg PO TID [facility] Last Admin: 12/27/19 13:35 Dose: 25 mg Documented by: Diphenhydramine HCl (Benadryl -) 25 mg PO HS [facility] Last Admin: 12/26/19 22:57 Dose: 25 mg Documented by: Divalproex Sodium (Depakote Sprinkle Caps -) 125 mg PO BID [facility] Last Admin: 12/27/19 09:47 Dose: 125 mg Documented by: Heparin Sodium (Porcine) (Heparin -) 5,000 unit SQ TID [facility] Last Admin: 12/27/19 13:35 Dose: 5,000 unit Documented by: Melatonin (Melatonin) 5 mg PO HS PRN PRN Reason: INSOMNIA Last Admin: 12/25/19 21:20 Dose: 5 mg Documented by: Tamsulosin HCl (Flomax -) 0.8 mg PO DAILY@0830 [facility] Last Admin: 12/27/19 09:47 Dose: 0.8 mg Documented by: - Objective Vital Signs: Vital Signs Temperature 97.5 F L 12/27/19 14:00 Pulse Rate 99 H 12/27/19 14:00 Respiratory Rate 20 12/27/19 14:00 Blood Pressure 109/72 12/27/19 14:00 O2 Sat by Pulse Oximetry (%) 99 12/27/19 14:00 Eyes: Yes: Conjunctiva Clear HENT: Yes: Atraumatic Cardiovascular: Yes: S1, S2 Respiratory: Yes: CTA Bilaterally Gastrointestinal: Yes: Soft Genitourinary: Yes: Goldstein Present Musculoskeletal: Yes: Muscle Weakness Neurological: Yes: Confusion Labs: CBC, BMP 12/26/19 07:20 12/27/19 07:28 Problem List - Problems (1) KARLO (acute kidney injury) Code(s): N17.9 - ACUTE KIDNEY FAILURE, UNSPECIFIED (2) AMS (altered mental status) Code(s): R41.82 - ALTERED MENTAL STATUS, UNSPECIFIED Qualifiers: Altered mental status type: disorientation Qualified Code(s): R41.0 - Disorientation, unspecified (3) UTI (urinary tract infection) Code(s): N39.0 - URINARY TRACT INFECTION, SITE NOT SPECIFIED Qualifiers: Urinary tract infection type: acute cystitis Hematuria presence: without h ematuria Qualified Code(s): N30.00 - Acute cystitis without hematuria Assessment/Plan Current Medications Generic Name Dose Route Start Last Admin Trade Name Freq PRN Reason Stop Dose Admin Amlodipine Besylate 10 mg 12/24/19 10:00 12/27/19 09:47 Norvasc - PO 10 mg DAILY GAURI Administration Bethanechol Chloride 25 mg 12/26/19 22:00 12/27/19 13:35 Urecholine - PO 25 mg TID GAURI Administration Diphenhydramine HCl 25 mg 12/23/19 22:00 12/26/19 22:57 Benadryl - PO 25 mg HS GAURI Administration Divalproex Sodium 125 mg 12/25/19 22:00 12/27/19 09:47 Depakote Sprinkle Caps - PO 125 mg BID GAURI Administration Heparin Sodium (Porcine) 5,000 unit 12/23/19 22:00 12/27/19 13:35 Heparin - SQ 5,000 unit TID GAURI Administration Melatonin 5 mg 12/23/19 18:06 12/25/19 21:20 Melatonin PO 5 mg HS PRN Administration INSOMNIA Tamsulosin HCl 0.8 mg 12/27/19 08:30 12/27/19 09:47 Flomax - PO 0.8 mg DAILY@0830 GAURI Administration Impression 1. KARLO 2. hydronephrosis 3. urinary obstruction 4. weight loss 5. altered mental status 6. uti 7. htn 8. possible pancreatic mass 9. hypernatremia 10. hypokalemia Plan - maintain goldstein, did not tolerate voiding trial - renal function stable - discussed with medical team - monitor lytes - will follow prn
--- NOTE | 2019-12-27 20:50 | PN ---
DATE OF VISIT: DATE OF DICTATION: 12/27/2019 The patient is status post a TURP from December 23, 2019. He has had an uneventful postoperative course. His abdomen is soft. His Campbell catheter reveals clear urine. His white count is 7.2. Hemoglobin and hematocrit are 12.4 over 36.9. BUN and creatinine are 8.8 over 1. Pathology reveals benign prostatic hypertrophy. IMPRESSION: Benign and uneventful postoperative course. Will recommend discontinuing Campbell catheter on Monday morning prior to discharge. EDGARD NICHOLS M.D. MARIA [id number]
[2019-12-27] MEDS: diphenhydrAMINE HCL 25 MG CAPSULE (FP) PO SCH (21:13)
[2019-12-28] MEDS: BETHANECHOL CHLORIDE 25 MG TABLET PO SCH ×3 (05:20→21:02)
[2019-12-28] MEDS: HEPARIN NA (PORCINE) 5,000 UNITS/ML 1ML VIAL SQ SCH ×3 (05:20→21:02)
[2019-12-28 08:17] LABS: BASO % 0.8 % (0-2.0); EOS % 4.6 % (0-4.5); HEMATOCRIT 36.2 % (35.4-49); HEMOGLOBIN 12.3 GM/dL (11.7-16.9); LYMPH % 6.7 % (8-40); MCH 33.3 pg (25.7-33.7); MCHC 33.8 g/dl (32.0-35.9); MEAN CELL VOLUME 98.5 fl (80-96); MEAN PLT VOLUME 7.8 fl (7.5-11.1); MONO % 10.3 % (3.8-10.2); NEUT % 77.6 % (42.8-82.8); PLATELET COUNT 308 K/MM3 (134-434); RBC 3.68 M/mm3 (4.00-5.60); RDW 14.1 % (11.9-15.9); WHITE BLOOD COUNT 7.4 K/mm3 (4.0-10.0)
[2019-12-28 08:56] LABS: ALBUMIN 2.6 g/dl (3.4-5.0); BLOOD UREA NITROGEN 8.6 mg/dL (7-18); CALCIUM 8.5 mg/dL (8.5-10.1); CREATININE 1.2 mg/dL (0.55-1.3); MAGNESIUM 1.7 mg/dL (1.8-2.4); PHOSPHOROUS 2.1 mg/dL (2.5-4.9); POTASSIUM 3.5 mmol/L (3.5-5.1)
[2019-12-28 09:04] LABS: BILIRUBIN,TOTAL 0.7 mg/dL (0.2-1); TOT PROT 6.8 g/dl (6.4-8.2)
[2019-12-28] MEDS: NYSTATIN POWDER 100,000 UNITS/GM - 15 GM TOPICAL POWDER TP SCH ×2 (10:18→21:04)
[2019-12-28] MEDS: amLODIPine BESYLATE 10 MG TABLET (FP) PO SCH (10:19)
[2019-12-28] MEDS: DIVALPROEX SODIUM 125 MG SPRINKLE CAPS PO SCH ×2 (10:19→21:02)
[2019-12-28] MEDS: TAMSULOSIN HCL 0.4 MG CAP PO SCH (10:19)
--- NOTE | 2019-12-28 12:04 | PN ---
Physical Exam: SUBJECTIVE: Patient seen and examined OBJECTIVE: Vital Signs Period Temp Pulse Resp BP Sys/Odell Pulse Ox Last 24 Hr 97.5 F-98.8 F 89-106 20-20 109-142/56-79 97-100 HEENT: NC/AT, PERRLA, neck supple CVS: S1, S2, Systolic murmur, no pedal edema Lungs: clear to auscultation Abdomen: soft, non-tender. Bowel Sounds normal. goldstein in situ draining clear urine. Extremities: no edema, no calf tenderness. Neuro: AAO x 2, no focal neurological deficit, Moving all 4 extremities. Laboratory Results - last 24 hr 12/28/19 12/28/19 07:38 07:38 WBC 7.4 RBC 3.68 L Hgb 12.3 Hct 36.2 MCV 98.5 H MCH 33.3 MCHC 33.8 RDW 14.1 Plt Count 308 MPV 7.8 Absolute Neuts (auto) 5.7 Neutrophils % 77.6 Lymphocytes % 6.7 L D Monocytes % 10.3 H Eosinophils % 4.6 H Basophils % 0.8 Nucleated RBC % 0 Sodium 143 Potassium 3.5 Chloride 111 H Carbon Dioxide 23 Anion Gap 9 BUN 8.6 Creatinine 1.2 Est GFR (CKD-EPI)AfAm 63.52 Est GFR (CKD-EPI)NonAf 54.81 Random Glucose 71 L Calcium 8.5 Phosphorus 2.1 L Magnesium 1.7 L Total Bilirubin 0.7 AST 102 H ALT 140 H Alkaline Phosphatase 115 Total Protein 6.8 Albumin 2.6 L Active Medications Generic Name Dose Route Start Last Admin Trade Name Freq PRN Reason Stop Dose Admin Amlodipine Besylate 10 mg 12/24/19 10:00 12/28/19 10:19 Norvasc - PO 10 mg DAILY GAURI Administration Bethanechol Chloride 25 mg 12/26/19 22:00 12/28/19 05:20 Urecholine - PO 25 mg TID GAURI Administration Diphenhydramine HCl 25 mg 12/23/19 22:00 12/27/19 21:13 Benadryl - PO 25 mg HS GAURI Administration Divalproex Sodium 125 mg 12/25/19 22:00 12/28/19 10:19 Depakote Sprinkle Caps - PO 125 mg BID GAURI Administration Heparin Sodium (Porcine) 5,000 unit 12/23/19 22:00 12/28/19 05:20 Heparin - SQ 5,000 unit TID GAURI Administration Melatonin 5 mg 12/23/19 18:06 12/25/19 21:20 Melatonin PO 5 mg HS PRN Administration INSOMNIA Nystatin 1 applic 12/28/19 10:00 12/28/19 10:18 Nystop Powder - TP 1 applic BID GAURI Administration Tamsulosin HCl 0.8 mg 12/27/19 08:30 12/28/19 10:19 Flomax - PO 0.8 mg DAILY@0830 GAURI Administration ASSESSMENT/PLAN: 84 year old male with history of Gout, HTN, presents with confusion, weakness, decreased oral intake, increased urinary frequency and dysuria. # Acute Metabolic Encephalopathy UTI/Uremia/ obstructive uropathy still confusion. completed ABx Afebrile. Hemodynamically Stable TOV Urology following #Pancreatic Mass incidental finding on CT A/P, CA 19/9 elevated. trend LFT KARLO on CKD BPH Bilateral Hydronephrosis hypernatremia (will start D5W) LFTs trending up (medication vs mass) HTN DVT Prophylaxis team discussed condition and pancreatic mass discussed with , treatment options discussed, verbalized agreement and understanding Visit type - Emergency Visit Emergency Visit: Yes ED Registration Date: 12/16/19 Care time: The patient presented to the Emergency Department on the above date and was hospitalized for further evaluation of their emergent condition. - New Patient This patient is new to me today: No - Critical Care Critical Care patient: No - Discharge Referral Referred to [facility] No - Medication Review Med list reviewed for High Risk Meds patients 65 and older: Yes (yes)
[2019-12-28] MEDS ORDERED: ACETAMINOPHEN 325 MG TABLET (FP) PO PRN (18:46)
[2019-12-29] MEDS: BETHANECHOL CHLORIDE 25 MG TABLET PO SCH ×3 (06:07→21:38)
[2019-12-29] MEDS: HEPARIN NA (PORCINE) 5,000 UNITS/ML 1ML VIAL SQ SCH ×3 (06:08→21:38)
[2019-12-29 08:13] LABS: BASO % 0.8 % (0-2.0); EOS % 3.1 % (0-4.5); HEMATOCRIT 35.9 % (35.4-49); LYMPH % 13.6 % (8-40); MCHC 33.5 g/dl (32.0-35.9); MEAN CELL VOLUME 98.4 fl (80-96); MEAN PLT VOLUME 7.7 fl (7.5-11.1); NEUT % 71.5 % (42.8-82.8); PLATELET COUNT 330 K/MM3 (134-434); RBC 3.65 M/mm3 (4.00-5.60); RDW 14.7 % (11.9-15.9); WHITE BLOOD COUNT 7.5 K/mm3 (4.0-10.0)
[2019-12-29 08:38] LABS: ALBUMIN 2.5 g/dl (3.4-5.0); BILIRUBIN,TOTAL 0.5 mg/dL (0.2-1); BLOOD UREA NITROGEN 9.6 mg/dL (7-18); CALCIUM 8.6 mg/dL (8.5-10.1); CREATININE 1.2 mg/dL (0.55-1.3); POTASSIUM 3.5 mmol/L (3.5-5.1); TOT PROT 6.7 g/dl (6.4-8.2)
--- NOTE | 2019-12-29 08:46 | PN ---
Progress Note (short form) - Note Progress Note: Pt denies abdominal pain.' CT reviewed by me, there is a bulky pancreas. At his age this raises the suspicion of autoimmune pancreatitis. Will ask for IgG subclasses.
[2019-12-29] MEDS ORDERED: PT OWN MED DRAWER 7, Y5N ONE (09:58)
[2019-12-29] MEDS: TAMSULOSIN HCL 0.4 MG CAP PO SCH (09:59)
[2019-12-29] MEDS: amLODIPine BESYLATE 10 MG TABLET (FP) PO SCH (10:00)
[2019-12-29] MEDS: DIVALPROEX SODIUM 125 MG SPRINKLE CAPS PO SCH ×2 (10:00→21:38)
[2019-12-29] MEDS: NYSTATIN POWDER 100,000 UNITS/GM - 15 GM TOPICAL POWDER TP SCH ×2 (10:06→21:40)
--- NOTE | 2019-12-29 14:48 | PN ---
Teaching Attending Note Name of Resident: Sarah Garcia ATTENDING PHYSICIAN STATEMENT I saw and evaluated the patient. I reviewed the resident's note and discussed the case with the resident. I agree with the resident's findings and plan as documented. SUBJECTIVE: pt seen and examined, confused OBJECTIVE: Last Vital Signs Temp Pulse Resp BP Pulse Ox 98.7 F 95 H 18 132/65 97 12/29/19 10:00 12/29/19 10:00 12/29/19 10:00 12/29/19 10:00 12/29/19 10:00 HEENT: NC/AT, PERRLA, neck supple CVS: S1, S2, Systolic murmur, no pedal edema Lungs: clear to auscultation Abdomen: soft, non-tender. Bowel Sounds normal. goldstein in situ draining clear urine. Extremities: no edema, no calf tenderness. Neuro: AAO x 2, no focal neurological deficit, Moving all 4 extremities. CBCD WBC 7.5 K/mm3 (4.0-10.0) 12/29/19 07:46 RBC 3.65 M/mm3 (4.00-5.60) L 12/29/19 07:46 Hgb 12.0 GM/dL (11.7-16.9) 12/29/19 07:46 Hct 35.9 % (35.4-49) 12/29/19 07:46 MCV 98.4 fl (80-96) H 12/29/19 07:46 MCHC 33.5 g/dl (32.0-35.9) 12/29/19 07:46 RDW 14.7 % (11.9-15.9) 12/29/19 07:46 Plt Count 330 K/MM3 (134-434) 12/29/19 07:46 MPV 7.7 fl (7.5-11.1) 12/29/19 07:46 CMP Sodium 146 mmol/L (136-145) H 12/29/19 07:46 Potassium 3.5 mmol/L (3.5-5.1) 12/29/19 07:46 Chloride 113 mmol/L (98-107) H 12/29/19 07:46 Carbon Dioxide 28 mmol/L (21-32) 12/29/19 07:46 Anion Gap 5 MMOL/L (8-16) L 12/29/19 07:46 BUN 9.6 mg/dL (7-18) 12/29/19 07:46 Creatinine 1.2 mg/dL (0.55-1.3) 12/29/19 07:46 Calcium 8.6 mg/dL (8.5-10.1) 12/29/19 07:46 Total Bilirubin 0.5 mg/dL (0.2-1) 12/29/19 07:46 AST 89 U/L (15-37) H 12/29/19 07:46 ALT 131 U/L (13-61) H 12/29/19 07:46 Alkaline Phosphatase 104 U/L (45-117) 12/29/19 07:46 Total Protein 6.7 g/dl (6.4-8.2) 12/29/19 07:46 Albumin 2.5 g/dl (3.4-5.0) L 12/29/19 07:46 Active Medications Acetaminophen (Tylenol -) 650 mg PO Q6H PRN PRN Reason: FEVER Last Admin: 12/28/19 21:04 Dose: 650 mg Documented by: Amlodipine Besylate (Norvasc -) 10 mg PO DAILY [facility] Last Admin: 12/29/19 10:00 Dose: 10 mg Documented by: Bethanechol Chloride (Urecholine -) 25 mg PO TID [facility] Last Admin: 12/29/19 13:56 Dose: 25 mg Documented by: Divalproex Sodium (Depakote Sprinkle Caps -) 125 mg PO BID [facility] Last Admin: 12/29/19 10:00 Dose: 125 mg Documented by: Heparin Sodium (Porcine) (Heparin -) 5,000 unit SQ TID [facility] Last Admin: 12/29/19 13:55 Dose: 5,000 unit Documented by: Melatonin (Melatonin) 5 mg PO HS PRN PRN Reason: INSOMNIA Last Admin: 12/25/19 21:20 Dose: 5 mg Documented by: Nystatin (Nystop Powder -) 1 applic TP BID [facility] Last Admin: 12/29/19 10:06 Dose: 1 applic Documented by: Tamsulosin HCl (Flomax -) 0.8 mg PO DAILY@0830 [facility] Last Admin: 12/29/19 09:59 Dose: 0.8 mg Documented by: ASSESSMENT AND PLAN: 84 year old male with history of Gout, HTN, presents with confusion, weakness, decreased oral intake, increased urinary frequency and dysuria. # Metabolic Encephalopathy UTI/Uremia/ obstructive uropathy still confusion. completed ABx x2 episodes of fever yesterday blood cultures and urine cultures. CXR negative, pt asymptomatic ID consulted Hemodynamically Stable TOV Urology following #Pancreatic Mass incidental finding on CT A/P, CA 19/9 elevated. trend LFT KARLO on CKD BPH Bilateral Hydronephrosis hypernatremia (will start D5W) LFTs trending up (medication vs mass) HTN DVT Prophylaxis his condition, including pancreatic mass discussed with , treatment options discussed, verbalized agreement and understanding
--- NOTE | 2019-12-29 16:07 | PN ---
Physical Exam: SUBJECTIVE: Patient seen and examined at bedside, no new complaints OBJECTIVE: Vital Signs Period Temp Pulse Resp BP Sys/Odell Pulse Ox Last 24 Hr 97.4 F-101.3 F 88-108 18-18 122-138/53-77 97-98 GENERAL: Awake, confused, and Ox2, in no acute distress. HEAD: Normal with no signs of trauma. EYES: Sclera anicteric, conjunctiva clear. No lid lag. NECK: Supple without lymphadenopathy, JVD, or Right soft tissue mass, movable, encapsulated. LUNGS: Breath sounds equal, clear to auscultation bilaterally. No wheezes, and no crackles. No accessory muscle use. HEART: Regular rate and rhythm, normal S1 and S2 without murmur, rub or gallop. ABDOMEN: Soft, nontender, not distended, normoactive bowel sounds, no guarding, no rebound, no masses. No hepatomegaly or splenomegaly. : Goldstein is in Place-draining brown ,No active bleeding MUSCULOSKELETAL: Normal range of motion at all joints. No bony deformities or tenderness. No CVA tenderness. UPPER EXTREMITIES: 2+ pulses, warm, well-perfused. No cyanosis. No clubbing. No peripheral edema. LOWER EXTREMITIES: 2+ pulses, warm, well-perfused. No calf tenderness. No peripheral edema. NEUROLOGICAL: AAox2, confused SKIN: Warm, dry Laboratory Results - last 24 hr 12/29/19 12/29/19 07:46 07:46 WBC 7.5 RBC 3.65 L Hgb 12.0 Hct 35.9 MCV 98.4 H MCH 33.0 MCHC 33.5 RDW 14.7 Plt Count 330 MPV 7.7 Absolute Neuts (auto) 5.3 Neutrophils % 71.5 Lymphocytes % 13.6 D Monocytes % 11.0 H Eosinophils % 3.1 Basophils % 0.8 Nucleated RBC % 0 Sodium 146 H Potassium 3.5 Chloride 113 H Carbon Dioxide 28 Anion Gap 5 L BUN 9.6 Creatinine 1.2 Est GFR (CKD-EPI)AfAm 63.52 Est GFR (CKD-EPI)NonAf 54.81 Random Glucose 87 Calcium 8.6 Total Bilirubin 0.5 AST 89 H ALT 131 H Alkaline Phosphatase 104 Total Protein 6.7 Albumin 2.5 L Active Medications Generic Name Dose Route Start Last Admin Trade Name Freq PRN Reason Stop Dose Admin Acetaminophen 650 mg 12/28/19 18:46 12/28/19 21:04 Tylenol - PO 650 mg Q6H PRN Administration FEVER Amlodipine Besylate 10 mg 12/24/19 10:00 12/29/19 10:00 Norvasc - PO 10 mg DAILY GAURI Administration Bethanechol Chloride 25 mg 12/26/19 22:00 12/29/19 13:56 Urecholine - PO 25 mg TID GAURI Administration Divalproex Sodium 125 mg 12/25/19 22:00 12/29/19 10:00 Depakote Sprinkle Caps - PO 125 mg BID GAURI Administration Heparin Sodium (Porcine) 5,000 unit 12/23/19 22:00 12/29/19 13:55 Heparin - SQ 5,000 unit TID GAURI Administration Melatonin 5 mg 12/23/19 18:06 12/25/19 21:20 Melatonin PO 5 mg HS PRN Administration INSOMNIA Nystatin 1 applic 12/28/19 10:00 12/29/19 10:06 Nystop Powder - TP 1 applic BID GAURI Administration Tamsulosin HCl 0.8 mg 12/27/19 08:30 12/29/19 09:59 Flomax - PO 0.8 mg DAILY@0830 GAURI Administration ASSESSMENT/PLAN: 84 yo M PMH of HTN presented to ER for 2 weeks of worsening altered mental status, confusion, decreased PO intake, 15 lbs weight loss, difficulty ambulating. Admitted for sepsis 2/2 to acute complicated cystitis #Acute Metabolic encephalopathy likely 2/2 UTI,uremia - UA Positive for UTI, Urine Cx - Klebsiella, Completed Ceftriaxone x7d - pt is AAOx2, on going confusion - New onset of fevers, 2 episodes last night, ordered blood and urine cultures, CXR no infiltrates - CT head: no acute pathology. - Repeat CT: No acute pathology, Mod volume loss w/ ventricular Dilation. Chronic microvascular ischemic changes - Carotid Duplex - moderate atherosclerotic disease, no hemodynamically significant stenosis - Neurology Dr. Gomes on Board, recs appreciated #b/l Hydronephrosis w Fluid collection - CTAB: fluid near the lower pole of the left kidney. A collection inferior and medial to the lower pole of the left kidney measures 5 x 4 x 4.5 cm. - Pelvic/Bladder and Kidney u/s: Mild bilateral hydronephrosis, Over distended urinary bladder with retention - Repeat CT A/P revealed decreased L perinephric collection, decreased hydronephrosis/hydroureters - Urology on board (Dr. Bradford, [facility]).S/P Cystoscopy/TUVP - failed TOV. spoke with urology. put in 18 F goldstein, increase flomax, added bethanchol tid #KARLO: resolved - 2/2 enlarged prostate, enlarged Prostate on CT with PSA 33.6 - Cr improved -TOV , goldstein removed last night and required straight cath early am . will bladder scan - Pelvic/Bladder and Kidney u/s: Mild bilateral hydronephrosis, Over distended urinary bladder with retention - Nephrology (Dr. 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 - weight loss + anorexia - CA 19/9 elevated - GI consulted (Dr. Alvarez), recs appreciated -Will need contrast imaging of the pancreas (MRI or CT scan of abdomen with pancreatic protocol). -suspicion of autoimmune pancreatitis, pending IgG subclasses - MRCP ordered as per GI recommendations: Not completed by radiology - Patient will need further work up as outpatient - Consulted Heme Onc, recs appreciated #TRANSAMINITIS: - improving - unkonw etiology Possibly 2/2 to Pancreatic Mass - will continue to monitor - Negative hep panel - Avoid hepatotoxic agents #HTN: - Continue Norvasc 10mg daily #R. neck mobile subcutaneous mass - CT neck: No solid/fatty/ mass/lipoma, Mod. size calcified plaque @ common carotid bifurcation bilaterally, C-spine multilevel DDD - out pt ENT evaluation #FEN: - No standing fluids - Continue to monitor electrolytes and will continue to replete as needed - Normal diet #DVT prophylaxis : Heparin SQ TID Dispo: Continue to monitor on MS Visit type - Emergency Visit Emergency Visit: Yes ED Registration Date: 12/16/19 Care time: The patient presented to the Emergency Department on the above date and was hospitalized for further evaluation of their emergent condition. - New Patient This patient is new to me today: No - Critical Care Critical Care patient: No - Discharge Referral Referred to [facility] Med P.C.: No - Medication Review Med list reviewed for High Risk Meds patients 65 and older: Yes ATTENDING PHYSICIAN STATEMENT I saw and evaluated the patient. I reviewed the resident's note and discussed the case with the resident. I agree with the resident's findings and plan as documented. SUBJECTIVE: OBJECTIVE: ASSESSMENT AND PLAN:
[2019-12-29] MEDS: MELATONIN 5 MG TABLETS PO PRN (21:43)
[2019-12-30] MEDS: BETHANECHOL CHLORIDE 25 MG TABLET PO SCH ×3 (06:08→22:01)
[2019-12-30] MEDS: HEPARIN NA (PORCINE) 5,000 UNITS/ML 1ML VIAL SQ SCH ×2 (06:08→13:35)
[2019-12-30 08:36] LABS: BASO % 0.6 % (0-2.0); HEMATOCRIT 36.3 % (35.4-49); HEMOGLOBIN 12.1 GM/dL (11.7-16.9); LYMPH % 16.5 % (8-40); MCH 32.9 pg (25.7-33.7); MCHC 33.4 g/dl (32.0-35.9); MEAN CELL VOLUME 98.5 fl (80-96); MEAN PLT VOLUME 7.6 fl (7.5-11.1); MONO % 11.8 % (3.8-10.2); NEUT % 69.1 % (42.8-82.8); PLATELET COUNT 354 K/MM3 (134-434); RBC 3.68 M/mm3 (4.00-5.60); RDW 14.8 % (11.9-15.9); WHITE BLOOD COUNT 8.1 K/mm3 (4.0-10.0)
[2019-12-30 08:55] LABS: BLOOD UREA NITROGEN 10.8 mg/dL (7-18); CREATININE 1.2 mg/dL (0.55-1.3)
[2019-12-30 08:56] LABS: CALCIUM 8.3 mg/dL (8.5-10.1); MAGNESIUM 1.8 mg/dL (1.8-2.4); PHOSPHOROUS 1.6 mg/dL (2.5-4.9); POTASSIUM 3.3 mmol/L (3.5-5.1)
--- NOTE | 2019-12-30 09:08 | PN ---
DATE OF VISIT: DATE OF DICTATION: 12/29/2019 HISTORY: Patient is post TURP day 6. PHYSICAL EXAMINATION: Vital Signs: His vital signs are stable. His temperature is 98.7, blood pressure 132/65, pulse 95. Abdomen: Soft His white count is 7.5. Hemoglobin is 12 and hematocrit 35.9. BUN is 9.6 and creatinine 1.9. The pathology is benign prostatic hypertrophy. PLAN: Will discontinue Campbell in a.m. and give trial at voiding. Repeat urine culture is pending. Will also order a renal ultrasound to see resolution of the obstructive hydronephrosis that was due to his prostatism. Sienna [id number]
--- NOTE | 2019-12-30 09:44 | CON.ID ---
Consult Consult Specialty:: infectious diseases Referred by:: Reason for Consultation:: uti,confusion - History of Present Illness Chief Complaint: incontinence,weakness,ams History of Present Illness: 84 Year old Male with a history of hypertension brought in by for 2 weeks of worsening altered mental status, confusion, decreased PO intake, 15 lbs weight loss, difficulty ambulating. His is the primary historian who denies nausea, vomiting, chest pain. Confusion was of gradual onset. The believes he seems to be getting better. There is associated urinary frequency, urgency and reduced apppetite and 15 Ibs unexplained weight losss but no dysuria, hematuria, fever, chills, nausea, vomiting or diarrhea. No Chest pain, sob, wheezing, LOC, seizures, hematemesis, hematochezia or melena stool. the above was the history on admission patient was found to have urinary issues and seen by urology and underwent cysto and turp patient was found to be confused and the worry is if the patient has any infe ction and i was called to evaluate the patient previous cx of the urine was positive currently patient is awake and comfortable patient had low grade fever and is still very confused - History Source History Provided By: Medical Record Limitations to Obtaining History: Clinical Condition - Past Medical History Cardio/Vascular: Yes: HTN Rheumatology: Yes: Gout - Past Surgical History Additional Surgical History: Unspecified abdominal surgery - Alcohol/Substance Use Hx Alcohol Use: No - Smoking History Smoking history: Never smoked Have you smoked in the past 12 months: No - Social History Usual Living Arrangement: With Spouse Home Medications - Allergies Allergies/Adverse Reactions: Allergies Allergy/AdvReac Type Severity Reaction Status Date / Time ciprofloxacin [From Cipro] Allergy Verified 08/14/18 20:20 - Home Medications Home Medications: Ambulatory Orders Allopurinol [Zyloprim -] 100 mg PO DAILY 08/14/18 Amlodipine Besylate 10 mg PO DAILY 08/14/18 Hydrochlorothiazide [Hctz -] 25 mg PO DAILY 12/15/19 Tamsulosin HCl 0.4 mg PO DAILY 12/15/19 Family Medical History Family History: Unable to Obtain, Denies Other Family History: No family history of cancer Review of Systems - Review of Systems Constitutional: reports: No Symptoms Eyes: reports: No Symptoms HENT: reports: No Symptoms Neck: reports: No Symptoms Cardiovascular: reports: No Symptoms Respiratory: reports: No Symptoms Gastrointestinal: reports: No Symptoms Genitourinary: reports: No Symptoms Musculoskeletal: reports: No Symptoms Integumentary: reports: No Symptoms Neurological: reports: No Symptoms Endocrine: reports: No Symptoms Hematology/Lymphatic: reports: No Symptoms Psychiatric: reports: No Symptoms Physical Exam Vital Signs: Vital Signs Temperature 98 F 12/30/19 06:00 Pulse Rate 85 12/30/19 06:00 Respiratory Rate 20 12/30/19 09:00 Blood Pressure 127/69 12/30/19 06:00 O2 Sat by Pulse Oximetry (%) 99 12/30/19 09:00 Constitutional: Yes: No Distress, Calm Eyes: Yes: Conjunctiva Clear HENT: Yes: Atraumatic, Normocephalic Neck: Yes: Supple, Trachea Midline Cardiovascular: Yes: Regular Rate and Rhythm Respiratory: Yes: Regular, CTA Bilaterally Gastrointestinal: Yes: Normal Bowel Sounds, Soft Renal/: Yes: Campbell Present Musculoskeletal: Yes: WNL Extremities: Yes: WNL Neurological: Yes: Alert Psychiatric: Yes: Alert Labs: CBC, BMP 12/30/19 07:40 12/30/19 07:40 Imaging - Results Chest X-ray: Report Reviewed, Image Reviewed Cat Scan: Report Reviewed, Image Reviewed Assessment/Plan this patient with multiple medical issues with confusion and turp done clinically patient is comfortable i am worried that he might have urinary infection i am going to start him on ceftriaxone and see how he does also has perinephric collection 84 year old male with history of Gout, HTN, presents with confusion, weakness, decreased oral intake, increased urinary frequency and dysuria. # Metabolic Encephalopathy uti #Pancreatic Mass KARLO on CKD BPH Bilateral Hydronephrosis hypernatremia (will start D5W) LFTs increased HTN plan will start on ceftriaxone for now empiricaly await for urinary cx monitor for fever will monitor the mental status rest as per the team
[2019-12-30] MEDS: amLODIPine BESYLATE 10 MG TABLET (FP) PO SCH (10:15)
[2019-12-30] MEDS: TAMSULOSIN HCL 0.4 MG CAP PO SCH (10:15)
[2019-12-30] MEDS: NYSTATIN POWDER 100,000 UNITS/GM - 15 GM TOPICAL POWDER TP SCH ×2 (10:16→22:00)
[2019-12-30] MEDS: DIVALPROEX SODIUM 125 MG SPRINKLE CAPS PO SCH ×2 (10:16→22:00)
[2019-12-30] MEDS ORDERED: NAPH,MB-DB/K PH,MBDB POWDER PACKET PO ONE (12:00)
[2019-12-30] MEDS ORDERED: POTASSIUM CHLORIDE TABS 20 MEQ TABLET.ER (FP) PO ONE (12:15)
--- NOTE | 2019-12-30 13:13 | PN ---
Progress Note, Physician History of Present Illness: Pt seen and examined at bedside. No great change in status. - Current Medication List Current Medications: Active Medications Acetaminophen (Tylenol -) 650 mg PO Q6H PRN PRN Reason: FEVER Last Admin: 12/28/19 21:04 Dose: 650 mg Documented by: Amlodipine Besylate (Norvasc -) 10 mg PO DAILY [facility] Last Admin: 12/30/19 10:15 Dose: 10 mg Documented by: Bethanechol Chloride (Urecholine -) 25 mg PO TID [facility] Last Admin: 12/30/19 06:08 Dose: 25 mg Documented by: Divalproex Sodium (Depakote Sprinkle Caps -) 125 mg PO BID [facility] Last Admin: 12/30/19 10:16 Dose: 125 mg Documented by: Heparin Sodium (Porcine) (Heparin -) 5,000 unit SQ TID [facility] Last Admin: 12/30/19 06:08 Dose: 5,000 unit Documented by: Melatonin (Melatonin) 5 mg PO HS PRN PRN Reason: INSOMNIA Last Admin: 12/29/19 21:43 Dose: 5 mg Documented by: Nystatin (Nystop Powder -) 1 applic TP BID [facility] Last Admin: 12/30/19 10:16 Dose: 1 applic Documented by: Tamsulosin HCl (Flomax -) 0.8 mg PO DAILY@0830 [facility] Last Admin: 12/30/19 10:15 Dose: 0.8 mg Documented by: - Objective Vital Signs: Vital Signs Temperature 98.8 F 12/30/19 10:07 Pulse Rate 96 H 12/30/19 10:07 Respiratory Rate 12/30/19 10:07 Blood Pressure 100/50 L 12/30/19 10:07 O2 Sat by Pulse Oximetry (%) 99 12/30/19 10:07 Constitutional: Yes: Calm Eyes: Yes: Conjunctiva Clear HENT: Yes: Atraumatic Neck: Yes: Supple Cardiovascular: Yes: S1, S2 Respiratory: Yes: CTA Bilaterally Gastrointestinal: Yes: Normal Bowel Sounds, Soft Genitourinary: Yes: Campbell Present Edema: No Neurological: Yes: Confusion Labs: CBC, BMP 12/30/19 07:40 12/30/19 07:40 Problem List - Problems (1) KARLO (acute kidney injury) Code(s): N17.9 - ACUTE KIDNEY FAILURE, UNSPECIFIED (2) AMS (altered mental status) Code(s): R41.82 - ALTERED MENTAL STATUS, UNSPECIFIED Qualifiers: Altered mental status type: disorientation Qualified Code(s): R41.0 - Disorientation, unspecified (3) UTI (urinary tract infection) Code(s): N39.0 - URINARY TRACT INFECTION, SITE NOT SPECIFIED Qualifiers: Urinary tract infection type: acute cystitis Hematuria presence: without hematuria Qualified Code(s): N30.00 - Acute cystitis without hematuria Assessment/Plan Current Medications Generic Name Dose Route Start Last Admin Trade Name Freq PRN Reason Stop Dose Admin Acetaminophen 650 mg 12/28/19 18:46 12/28/19 21:04 Tylenol - PO 650 mg Q6H PRN Administration FEVER Amlodipine Besylate 10 mg 12/24/19 10:00 12/30/19 10:15 Norvasc - PO 10 mg DAILY GAURI Administration Bethanechol Chloride 25 mg 12/26/19 22:00 12/30/19 06:08 Urecholine - PO 25 mg TID GAURI Administration Divalproex Sodium 125 mg 12/25/19 22:00 12/30/19 10:16 Depakote Sprinkle Caps - PO 125 mg BID GAURI Administration Heparin Sodium (Porcine) 5,000 unit 12/23/19 22:00 12/30/19 06:08 Heparin - SQ 5,000 unit TID GAURI Administration Melatonin 5 mg 12/23/19 18:06 12/29/19 21:43 Melatonin PO 5 mg HS PRN Administration INSOMNIA Nystatin 1 applic 12/28/19 10:00 12/30/19 10:16 Nystop Powder - TP 1 applic BID GAURI Administration Tamsulosin HCl 0.8 mg 12/27/19 08:30 12/30/19 10:15 Flomax - PO 0.8 mg DAILY@0830 GAURI Administration Impression 1. KARLO 2. hydronephrosis 3. urinary obstruction 4. weight loss 5. altered mental status 6. uti 7. htn 8. possible pancreatic mass 9. hypernatremia 10. hypokalemia Plan - replace potassium - monitor lytes - renal function stable - encourage po intake - he remains confused
--- NOTE | 2019-12-30 16:08 | PN ---
Physical Exam: SUBJECTIVE: Patient seen and examined OBJECTIVE: Vital Signs Period Temp Pulse Resp BP Sys/Odell Pulse Ox Last 24 Hr 97.3 F-98.8 F 85-103 18-20 100-127/50-69 97-100 HEENT: NC/AT, PERRLA, neck supple CVS: S1, S2, Systolic murmur, no pedal edema Lungs: clear to auscultation Abdomen: soft, non-tender. Bowel Sounds normal. goldstein in situ draining clear urine. Extremities: no edema, no calf tenderness. Neuro: AAO x 2, no focal neurological deficit, Moving all 4 extremities. Laboratory Results - last 24 hr 12/30/19 12/30/19 07:40 07:40 WBC 8.1 RBC 3.68 L Hgb 12.1 Hct 36.3 MCV 98.5 H MCH 32.9 MCHC 33.4 RDW 14.8 Plt Count 354 MPV 7.6 Absolute Neuts (auto) 5.6 Neutrophils % 69.1 Lymphocytes % 16.5 D Monocytes % 11.8 H Eosinophils % 2.0 Basophils % 0.6 Nucleated RBC % 0 Sodium 144 Potassium 3.3 L Chloride 112 H Carbon Dioxide 26 Anion Gap 6 L BUN 10.8 Creatinine 1.2 Est GFR (CKD-EPI)AfAm 63.52 Est GFR (CKD-EPI)NonAf 54.81 Random Glucose 86 Calcium 8.3 L Phosphorus 1.6 L Magnesium 1.8 Active Medications Generic Name Dose Route Start Last Admin Trade Name Freq PRN Reason Stop Dose Admin Acetaminophen 650 mg 12/28/19 18:46 12/28/19 21:04 Tylenol - PO 650 mg Q6H PRN Administration FEVER Amlodipine Besylate 10 mg 12/24/19 10:00 12/30/19 10:15 Norvasc - PO 10 mg DAILY GAURI Administration Bethanechol Chloride 25 mg 12/26/19 22:00 12/30/19 13:35 Urecholine - PO 25 mg TID GAURI Administration Divalproex Sodium 125 mg 12/25/19 22:00 12/30/19 10:16 Depakote Sprinkle Caps - PO 125 mg BID GAURI Administration Heparin Sodium (Porcine) 5,000 unit 12/23/19 22:00 12/30/19 13:35 Heparin - SQ 5,000 unit TID GAURI Administration Melatonin 5 mg 12/23/19 18:06 12/29/19 21:43 Melatonin PO 5 mg HS PRN Administration INSOMNIA Nystatin 1 applic 12/28/19 10:00 12/30/19 10:16 Nystop Powder - TP 1 applic BID GAURI Administration Tamsulosin HCl 0.8 mg 12/27/19 08:30 12/30/19 10:15 Flomax - PO 0.8 mg DAILY@0830 GAURI Administration ASSESSMENT/PLAN: 84 year old male with history of Gout, HTN, presents with confusion, weakness, decreased oral intake, increased urinary frequency and dysuria. # Metabolic Encephalopathy UTI/Uremia/ obstructive uropathy still confusion. afebrile >24H (drug fever?) blood cultures and urine cultures. CXR negative, pt asymptomatic ID consulted Hemodynamically Stable, more alert since benadryl was discontinued and depakote tapered bladder scan showed no hydronephrosis TOV Urology following #Pancreatic Mass incidental finding on CT A/P, CA 19/9 elevated. trend LFT KARLO on CKD BPH Bilateral Hydronephrosis hypernatremia (will start D5W) LFTs trending up (medication vs mass) HTN DVT Prophylaxis Plan: his condition, including pancreatic mass discussed with , treatment options discussed, verbalized agreement and understanding Pt can be discharged to rehab if remains afebrile and Abx changed to PO. Cultures no growth up to date. Visit type - Emergency Visit Emergency Visit: Yes ED Registration Date: 12/16/19 Care time: The patient presented to the Emergency Department on the above date and was hospitalized for further evaluation of their emergent condition. - New Patient This patient is new to me today: No - Critical Care Critical Care patient: No - Discharge Referral Referred to [facility] Med P.C.: No - Medication Review Med list reviewed for High Risk Meds patients 65 and older: Yes (yes)
[2019-12-31] MEDS: BETHANECHOL CHLORIDE 25 MG TABLET PO SCH ×2 (05:56→14:10)
[2019-12-31 08:45] LABS: HEMATOCRIT 32.6 % (35.4-49); HEMOGLOBIN 10.9 GM/dL (11.7-16.9); MCH 32.9 pg (25.7-33.7); MCHC 33.6 g/dl (32.0-35.9); MEAN PLT VOLUME 7.7 fl (7.5-11.1); PLATELET COUNT 363 K/MM3 (134-434); RBC 3.32 M/mm3 (4.00-5.60); RDW 14.8 % (11.9-15.9); WHITE BLOOD COUNT 6.4 K/mm3 (4.0-10.0)
[2019-12-31 09:04] LABS: ALBUMIN 2.3 g/dl (3.4-5.0); BILIRUBIN,TOTAL 0.9 mg/dL (0.2-1); BLOOD UREA NITROGEN 9.8 mg/dL (7-18); CALCIUM 8.3 mg/dL (8.5-10.1); CREATININE 0.9 mg/dL (0.55-1.3); POTASSIUM 3.5 mmol/L (3.5-5.1); TOT PROT 6.3 g/dl (6.4-8.2)
[2019-12-31] MEDS: DIVALPROEX SODIUM 125 MG SPRINKLE CAPS PO SCH (09:29)
[2019-12-31] MEDS: NYSTATIN POWDER 100,000 UNITS/GM - 15 GM TOPICAL POWDER TP SCH (09:30)
[2019-12-31] MEDS: TAMSULOSIN HCL 0.4 MG CAP PO SCH (09:30)
[2019-12-31] MEDS: amLODIPine BESYLATE 10 MG TABLET (FP) PO SCH (09:30)
--- NOTE | 2019-12-31 10:57 | PN ---
DATE OF VISIT: DATE OF DICTATION: 12/31/2019 SUBJECTIVE: The patient is an 84-year-old male who underwent a TURP on December 23, 2019. Today he is postop day 9. A previous trial at voiding had failed. The Campbell has been in place for 72 hours. His cannulation was commenced. Presently the abdomen is soft. The urine is clear. The Campbell is patent. We will discontinue Campbell today and give trial at voiding. If the patient voids successfully, he is cleared for discharge. Sienna [id number]
--- NOTE | 2019-12-31 11:12 | PN ---
Progress Note, Physician History of Present Illness: still confused stable no new issues - Current Medication List Current Medications: Active Medications Acetaminophen (Tylenol -) 650 mg PO Q6H PRN PRN Reason: FEVER Last Admin: 12/28/19 21:04 Dose: 650 mg Documented by: Amlodipine Besylate (Norvasc -) 10 mg PO DAILY [facility] Last Admin: 12/31/19 09:30 Dose: 10 mg Documented by: Bethanechol Chloride (Urecholine -) 25 mg PO TID [facility] Last Admin: 12/31/19 05:56 Dose: 25 mg Documented by: Divalproex Sodium (Depakote Sprinkle Caps -) 125 mg PO BID [facility] Last Admin: 12/31/19 09:29 Dose: 125 mg Documented by: Melatonin (Melatonin) 5 mg PO HS PRN PRN Reason: INSOMNIA Last Admin: 12/29/19 21:43 Dose: 5 mg Documented by: Nystatin (Nystop Powder -) 1 applic TP BID [facility] Last Admin: 12/31/19 09:30 Dose: 1 applic Documented by: Tamsulosin HCl (Flomax -) 0.8 mg PO DAILY@0830 [facility] Last Admin: 12/31/19 09:30 Dose: 0.8 mg Documented by: - Objective Vital Signs: Vital Signs Temperature 98.6 F 12/31/19 06:00 Pulse Rate 82 12/31/19 06:00 Respiratory Rate 20 12/31/19 06:00 Blood Pressure 122/50 L 12/31/19 06:00 O2 Sat by Pulse Oximetry (%) 92 L 12/31/19 06:00 Constitutional: Yes: No Distress, Calm Cardiovascular: Yes: S1, S2 Gastrointestinal: Yes: Normal Bowel Sounds, Soft Genitourinary: Yes: Campbell Present Musculoskeletal: Yes: WNL Extremities: Yes: WNL Neurological: Yes: Alert, Other Psychiatric: Yes: Alert Labs: CBC, BMP 12/31/19 07:34 12/31/19 07:34 Assessment/Plan this patient with multiple medical issues with confusion and turp done clinically patient is comfortable i am worried that he might have urinary infection i am going to start him on ceftriaxone and see how he does also has perinephric collection 84 year old male with history of Gout, HTN, presents with confusion, weakness, decreased oral intake, increased urinary frequency and dysuria. # Metabolic Encephalopathy uti #Pancreatic Mass KARLO on CKD BPH Bilateral Hydronephrosis hypernatremia (will start D5W) LFTs increased HTN plan continue ceftgriaxone await for urinary cx monitor for fever will monitor the mental status rest as per the team
--- NOTE | 2019-12-31 14:39 | PN ---
Progress Note, Physician History of Present Illness: Pt seen and examined. He remains confused. - Current Medication List Current Medications: Active Medications Acetaminophen (Tylenol -) 650 mg PO Q6H PRN PRN Reason: FEVER Last Admin: 12/28/19 21:04 Dose: 650 mg Documented by: Amlodipine Besylate (Norvasc -) 10 mg PO DAILY [facility] Last Admin: 12/31/19 09:30 Dose: 10 mg Documented by: Bethanechol Chloride (Urecholine -) 25 mg PO TID [facility] Last Admin: 12/31/19 14:10 Dose: 25 mg Documented by: Divalproex Sodium (Depakote Sprinkle Caps -) 125 mg PO BID [facility] Last Admin: 12/31/19 09:29 Dose: 125 mg Documented by: Melatonin (Melatonin) 5 mg PO HS PRN PRN Reason: INSOMNIA Last Admin: 12/29/19 21:43 Dose: 5 mg Documented by: Nystatin (Nystop Powder -) 1 applic TP BID [facility] Last Admin: 12/31/19 09:30 Dose: 1 applic Documented by: Tamsulosin HCl (Flomax -) 0.8 mg PO DAILY@0830 [facility] Last Admin: 12/31/19 09:30 Dose: 0.8 mg Documented by: - Objective Vital Signs: Vital Signs Temperature 98.8 F 12/31/19 13:54 Pulse Rate 84 12/31/19 13:54 Respiratory Rate 20 12/31/19 13:54 Blood Pressure 147/50 L 12/31/19 13:54 O2 Sat by Pulse Oximetry (%) 99 12/31/19 13:54 Constitutional: Yes: Calm Eyes: Yes: Conjunctiva Clear HENT: Yes: Atraumatic Cardiovascular: Yes: S1, S2 Respiratory: Yes: CTA Bilaterally Gastrointestinal: Yes: Soft Genitourinary: Yes: Campbell Present Musculoskeletal: Yes: WNL Edema: No Neurological: Yes: Confusion Labs: CBC, BMP 12/31/19 07:34 12/31/19 07:34 Problem List - Problems (1) KARLO (acute kidney injury) Code(s): N17.9 - ACUTE KIDNEY FAILURE, UNSPECIFIED (2) AMS (altered mental status) Code(s): R41.82 - ALTERED MENTAL STATUS, UNSPECIFIED Qualifiers: Altered mental status type: disorientation Qualified Code(s): R41.0 - Disorientation, unspecified (3) UTI (urinary tract infection) Code(s): N39.0 - URINARY TRACT INFECTION, SITE NOT SPECIFIED Qualifiers: Urinary tract infection type: acute cystitis Hematuria presence: without hematuria Qualified Code(s): N30.00 - Acute cystitis without hematuria Assessment/Plan Current Medications Generic Name Dose Route Start Last Admin Trade Name Freq PRN Reason Stop Dose Admin Acetaminophen 650 mg 12/28/19 18:46 12/28/19 21:04 Tylenol - PO 650 mg Q6H PRN Administration FEVER Amlodipine Besylate 10 mg 12/24/19 10:00 12/31/19 09:30 Norvasc - PO 10 mg DAILY GAURI Administration Bethanechol Chloride 25 mg 12/26/19 22:00 12/31/19 14:10 Urecholine - PO 25 mg TID GAURI Administration Divalproex Sodium 125 mg 12/25/19 22:00 12/31/19 09:29 Depakote Sprinkle Caps - PO 125 mg BID GAURI Administration Melatonin 5 mg 12/23/19 18:06 12/29/19 21:43 Melatonin PO 5 mg HS PRN Administration INSOMNIA Nystatin 1 applic 12/28/19 10:00 12/31/19 09:30 Nystop Powder - TP 1 applic BID GAURI Administration Tamsulosin HCl 0.8 mg 12/27/19 08:30 12/31/19 09:30 Flomax - PO 0.8 mg DAILY@0830 GAURI Administration Impression 1. KARLO 2. hydronephrosis 3. urinary obstruction 4. weight loss 5. altered mental status 6. uti 7. htn 8. possible pancreatic mass 9. hypernatremia 10. hypokalemia Plan - lytes stable - renal ultrasound with negative hydro - renal function stable - encourage po intake - he remains confused - will follow prn
[2019-12-31 16:59] VITALS: BP 128/50; PULSE 99; TEMP 97.9
--- NOTE | 2019-12-31 17:08 | PN ---
Physical Exam: SUBJECTIVE: Patient seen and examined at bedside, no new complaints OBJECTIVE: Vital Signs Period Temp Pulse Resp BP Sys/Odell Pulse Ox Last 24 Hr 97.9 F-99.4 F 78-99 18-20 114-147/50-61 92-100 GENERAL: Awake, confused, and Ox2, in no acute distress. HEAD: Normal with no signs of trauma. EYES: Sclera anicteric, conjunctiva clear. No lid lag. NECK: Supple without lymphadenopathy, JVD, or Right soft tissue mass, movable, encapsulated. LUNGS: Breath sounds equal, clear to auscultation bilaterally. No wheezes, and no crackles. No accessory muscle use. HEART: Regular rate and rhythm, normal S1 and S2 without murmur, rub or gallop. ABDOMEN: Soft, nontender, not distended, normoactive bowel sounds, no guarding, no rebound, no masses. No hepatomegaly or splenomegaly. : Goldstein is in Place-draining brown ,No active bleeding MUSCULOSKELETAL: Normal range of motion at all joints. No bony deformities or tenderness. No CVA tenderness. UPPER EXTREMITIES: 2+ pulses, warm, well-perfused. No cyanosis. No clubbing. No peripheral edema. LOWER EXTREMITIES: 2+ pulses, warm, well-perfused. No calf tenderness. No peripheral edema. NEUROLOGICAL: AAox2, confused SKIN: Warm, dry Laboratory Results - last 24 hr 12/31/19 12/31/19 07:34 07:34 WBC 6.4 RBC 3.32 L Hgb 10.9 L Hct 32.6 L MCV 98.0 H MCH 32.9 MCHC 33.6 RDW 14.8 Plt Count 363 MPV 7.7 Sodium 140 Potassium 3.5 Chloride 109 H Carbon Dioxide 24 Anion Gap 8 BUN 9.8 Creatinine 0.9 Est GFR (CKD-EPI)AfAm 89.95 Est GFR (CKD-EPI)NonAf 77.61 Random Glucose 76 Calcium 8.3 L Total Bilirubin 0.9 AST 55 H ALT 87 H Alkaline Phosphatase 92 Total Protein 6.3 L Albumin 2.3 L Active Medications Generic Name Dose Route Start Last Admin Trade Name Freq PRN Reason Stop Dose Admin Acetaminophen 650 mg 12/28/19 18:46 12/28/19 21:04 Tylenol - PO 650 mg Q6H PRN Administration FEVER Amlodipine Besylate 10 mg 12/24/19 10:00 12/31/19 09:30 Norvasc - PO 10 mg DAILY GA[facility] Administration Amoxicillin/Clavulanate Potassium 1 tab 12/31/19 17:30 Augmentin - 500mg Tablet PO BID@0800,1730 [facility] Bethanechol Chloride 25 mg 12/26/19 22:00 12/31/19 14:10 Urecholine - PO 25 mg TID GAURI Administration Divalproex Sodium 125 mg 12/25/19 22:00 12/31/19 09:29 Depakote Sprinkle Caps - PO 125 mg BID [facility] Administration Melatonin 5 mg 12/23/19 18:06 12/29/19 21:43 Melatonin PO 5 mg HS PRN Administration INSOMNIA Nystatin 1 applic 12/28/19 10:00 12/31/19 09:30 Nystop Powder - TP 1 applic BID [facility] Administration Tamsulosin HCl 0.8 mg 12/27/19 08:30 12/31/19 09:30 Flomax - PO 0.8 mg DAILY@0830 [facility] Administration ASSESSMENT/PLAN: 84 yo M PMH of HTN presented to ER for 2 weeks of worsening altered mental status, confusion, decreased PO intake, 15 lbs weight loss, difficulty ambulating. Admitted for sepsis 2/2 to acute complicated cystitis #Acute Metabolic encephalopathy likely 2/2 UTI,uremia - UA Positive for UTI, Urine Cx - Klebsiella, Completed Ceftriaxone x7d - pt is AAOx2, on going confusion - New onset of fevers, 2 episodes last night, ordered blood and urine cultures, CXR no infiltrates - CT head: no acute pathology. - Repeat CT: No acute pathology, Mod volume loss w/ ventricular Dilation. Chronic microvascular ischemic changes - Carotid Duplex - moderate atherosclerotic disease, no hemodynamically significant stenosis - Neurology Dr. Gomes on Board, recs appreciated #b/l Hydronephrosis w Fluid collection - CTAB: fluid near the lower pole of the left kidney. A collection inferior and medial to the lower pole of the left kidney measures 5 x 4 x 4.5 cm. - Pelvic/Bladder and Kidney u/s: Mild bilateral hydronephrosis, Over distended urinary bladder with retention - Repeat CT A/P revealed decreased L perinephric collection, decreased hydronephrosis/hydroureters - Urology on board (Dr. Bradford, Camila).S/P Cystoscopy/TUVP - failed TOV. spoke with urology. put in 18 F goldstein, increase flomax, added bethanchol tid Initiated 2nd TOV on 12/30, will continue to monitor #KARLO: resolved - 2/2 enlarged prostate, enlarged Prostate on CT with PSA 33.6 - Cr improved -TOV , goldstein removed last night and required straight cath early am . will bladder scan - Pelvic/Bladder and Kidney u/s: Mild bilateral hydronephrosis, Over distended urinary bladder with retention - Nephrology (Dr. 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 - weight loss + anorexia - CA 19/9 elevated - GI consulted (Dr. Alvarez), recs appreciated -Will need contrast imaging of the pancreas (MRI or CT scan of abdomen with pancreatic protocol). -suspicion of autoimmune pancreatitis, pending IgG subclasses - MRCP ordered as per GI recommendations: Not completed by radiology - Patient will need further work up as outpatient - Consulted Heme Onc, recs appreciated #TRANSAMINITIS: - improving - unkonw etiology Possibly 2/2 to Pancreatic Mass - will continue to monitor - Negative hep panel - Avoid hepatotoxic agents #HTN: - Continue Norvasc 10mg daily #R. neck mobile subcutaneous mass - CT neck: No solid/fatty/ mass/lipoma, Mod. size calcified plaque @ common carotid bifurcation bilaterally, C-spine multilevel DDD - out pt ENT evaluation #FEN: - No standing fluids - Continue to monitor electrolytes and will continue to replete as needed - Normal diet #DVT prophylaxis : Heparin SQ TID Dispo: Continue to monitor on MS, TOV and DC to [facility]NS/facility Visit type - Emergency Visit Emergency Visit: Yes ED Registration Date: 12/16/19 Care time: The patient presented to the Emergency Department on the above date and was hospitalized for further evaluation of their emergent condition. - New Patient This patient is new to me today: No - Critical Care Critical Care patient: No - Discharge Referral Referred to [facility] Med [facility] No - Medication Review Med list reviewed for High Risk Meds patients 65 and older: Yes ATTENDING PHYSICIAN STATEMENT I saw and evaluated the patient. I reviewed the resident's note and discussed the case with the resident. I agree with the resident's findings and plan as documented. SUBJECTIVE: OBJECTIVE: ASSESSMENT AND PLAN:
[2019-12-31] MEDS ORDERED: AMOX TR/POT CLAV 500MG/125MG TABLETS (FP) PO SCH (17:30)
--- NOTE | 2019-12-31 18:51 | PN ---
Teaching Attending Note Name of Resident: Yusra Dominguez ATTENDING PHYSICIAN STATEMENT I saw and evaluated the patient. I reviewed the resident's note and discussed the case with the resident. I agree with the resident's findings and plan as documented. SUBJECTIVE: Feels well, no complaints. No fever/chills. OBJECTIVE: Afebrile, Hemodynamically Stable. AAO x 2. Last Vital Signs Temp Pulse Resp BP Pulse Ox 97.9 F 99 H 20 128/50 L 99 12/31/19 16:58 12/31/19 16:58 12/31/19 16:58 12/31/19 16:58 12/31/19 13:54 Heart - S1, S2, SM Lungs - clear to auscultation Abdomen - soft, non-tender. Bowel Sounds normal. Extremities - no edema, no calf tenderness. Neuro - AAO x 2, Moving all 4 extremities. - goldstein in situ draining clear urine. Laboratory Results - last 24 hr 12/31/19 12/31/19 07:34 07:34 WBC 6.4 RBC 3.32 L Hgb 10.9 L Hct 32.6 L MCV 98.0 H MCH 32.9 MCHC 33.6 RDW 14.8 Plt Count 363 MPV 7.7 Sodium 140 Potassium 3.5 Chloride 109 H Carbon Dioxide 24 Anion Gap 8 BUN 9.8 Creatinine 0.9 Est GFR (CKD-EPI)AfAm 89.95 Est GFR (CKD-EPI)NonAf 77.61 Random Glucose 76 Calcium 8.3 L Total Bilirubin 0.9 AST 55 H ALT 87 H Alkaline Phosphatase 92 Total Protein 6.3 L Albumin 2.3 L Current Medications Generic Name Dose Route Start Last Admin Trade Name Maricarmen PRN Reason Stop Dose Admin Acetaminophen 650 mg 12/28/19 18:46 12/28/19 21:04 Tylenol - PO 650 mg Q6H PRN Administration FEVER Amlodipine Besylate 10 mg 12/24/19 10:00 12/31/19 09:30 Norvasc - PO 10 mg DAILY [facility] Administration Amoxicillin/Clavulanate Potassium 1 tab 12/31/19 17:30 12/31/19 18:46 Augmentin - 500mg Tablet PO 1 tab BID@0800,1730 [facility] Administration Bethanechol Chloride 25 mg 12/26/19 22:00 12/31/19 14:10 Urecholine - PO 25 mg TID [facility] Administration Divalproex Sodium 125 mg 12/25/19 22:00 12/31/19 09:29 Depakote Sprinkle Caps - PO 125 mg BID [facility] Administration Melatonin 5 mg 12/23/19 18:06 12/29/19 21:43 Melatonin PO 5 mg HS PRN Administration INSOMNIA Nystatin 1 applic 12/28/19 10:00 12/31/19 09:30 Nystop Powder - TP 1 applic BID GAURI Administration Tamsulosin HCl 0.8 mg 12/27/19 08:30 12/31/19 09:30 Flomax - PO 0.8 mg DAILY@0830 GAUIR Administration Discharge Medications Medication Instructions Recorded Allopurinol [Zyloprim -] 100 mg PO DAILY 08/14/18 Amlodipine Besylate 10 mg PO DAILY 08/14/18 Amox-Tr/K Cl [Augmentin 500-125mg 1 tab PO BID@0800,1730 #9 tablet 12/31/19 Tablet -] Bethanechol Chloride [Bethanechol 25 mg PO TID #90 tablet 12/31/19 Chloride -] Divalproex Sprinkle [Depakote 125 mg PO BID #60 cap.sprink 12/31/19 Sprinkle -] Tamsulosin HCl [Flomax -] 0.8 mg PO DAILY@0830 #60 cap.er.24h 12/31/19 ASSESSMENT AND PLAN: 84 year old male with history of Gout, HTN, presents with confusion, weakness, decreased oral intake, increased urinary frequency and dysuria. 1. Acute Metabolic Encephalopathy secondary to UTI/Uremia - some mild ongoing confusion, no agitation/combativeness AAO x 2, normal at baseline as per . CT head - no acute findings. Repeat CT - no changes, moderate volume loss/ventricular dilatation/microvascular ischemic changes. Carotid Duplex - moderate atherosclerotic disease, no hemodynamically significant stenosis. Urine Cx - Klebsiella, treated with Ceftriaxone - for Augmentin PO on discharge as per ID Started on Depakote by Psychiatry for restlessness and agitation. Afebrile. Hemodynamically Stable. Medicaly ready for discharge. declined SNF, wants patient discharged home. 2. KARLO secondary to Obstructive Uropathy sec to BPH- resolved Bilateral Hydronephrosis on Renal US, enlarged Prostate on CT with PSA 33.6 Creat much improved s/p goldstein insertion - Creat now normal from 6.4 at presentation Nephrology following, IV fluids stopped. s/p Cystoscopy/TUVP 12/22 TOV failed today - goldstein re-inserted prior to discharge home as per urology. Continue Tamsulosin - further recommendations as per Urology, who will follow on discharge. 3. L Renal collection - ?etiology Repeat CT A/P - decreased L perinephric collection, decreased hydronephrosis/hydroureters. Further recommendations as per Urology. 4. Pancreatic Mass (possible), incidental finding on CT A/P CA 19/9 elevated. MRCP ordered as per GI recommendations - not done by Radiology as felt to be an out-patient investigation. Will need further work-up as an out-patient. Oncology consulted for eval and recommendations. 5. Elevated LFTs ?etiology - improving. Hepatitis work-up negative Further recommendations as per GI. 6. HTN - HCTZ held due to KARLO on presentation and advanced age. Continue Norvasc. 7. Hypokalemia/Hypomagnesemia/Hypophosphatemia - repleted 8. R neck mobile subcutaneous mass (non-tender) - CT Head/Neck - no acute findings, DJD, no mass - for out-patient MRI and ENT eval.
--- NOTE | 2019-12-31 19:24 | DS ---
Physical Exam: SUBJECTIVE: Patient seen and examined OBJECTIVE: Vital Signs Period Temp Pulse Resp BP Sys/Odell Pulse Ox Last 24 Hr 97.9 F-98.8 F 78-99 18-20 114-147/50-61 92-100 PHYSICAL EXAM GENERAL: The patient is awake, alert, and fully oriented, in no acute distress. HEAD: Normal with no signs of trauma. EYES: PERRL, extraocular movements intact, sclera anicteric, conjunctiva clear. ENT: Ears normal, nares patent, oropharynx clear without exudates, moist mucous membranes. NECK: Trachea midline, full range of motion, supple. LUNGS: Breath sounds equal, clear to auscultation bilaterally, no wheezes, no crackles, no accessory muscle use. HEART: Regular rate and rhythm, S1, S2 without murmur, rub or gallop. ABDOMEN: Soft, nontender, nondistended, normoactive bowel sounds, no guarding, no rebound, no hepatosplenomegaly, no masses. EXTREMITIES: 2+ pulses, warm, well-perfused, no edema. NEUROLOGICAL: Cranial nerves II through XII grossly intact. Normal speech, gait not observed. PSYCH: Normal mood, normal affect. SKIN: Warm, dry, normal turgor, no rashes or lesions noted. LABS Laboratory Results - last 24 hr 12/31/19 12/31/19 07:34 07:34 WBC 6.4 RBC 3.32 L Hgb 10.9 L Hct 32.6 L MCV 98.0 H MCH 32.9 MCHC 33.6 RDW 14.8 Plt Count 363 MPV 7.7 Sodium 140 Potassium 3.5 Chloride 109 H Carbon Dioxide 24 Anion Gap 8 BUN 9.8 Creatinine 0.9 Est GFR (CKD-EPI)AfAm 89.95 Est GFR (CKD-EPI)NonAf 77.61 Random Glucose 76 Calcium 8.3 L Total Bilirubin 0.9 AST 55 H ALT 87 H Alkaline Phosphatase 92 Total Protein 6.3 L Albumin 2.3 L HOSPITAL COURSE: Date of Admission:12/16/19 84 yo M PMH of HTN presented to ER for 2 weeks of worsening altered mental status, confusion, decreased PO intake, 15 lbs weight loss, difficulty ambulating, admitted for Acute Metabolic encephalopathy likely 2/2 UTI,uremia. UA was Positive for UTI, Urine Cx revealed Klebsiella. He completed 7 days of Ceftriaxone. pt remained AAOx2 with on going confusion during his hospital stay. CT head x 2 revelaed no acute pathology, showed Mod volume loss w/ ventricular Dilation. Chronic microvascular ischemic changes. Carotid Duplex revealed moderate atherosclerotic disease, no hemodynamically significant stenosis CTAB showed fluid near the lower pole of the left kidney. A collection inferior and medial to the lower pole of the left kidney measures 5 x 4 x 4.5 cm. Pelvic/Bladder and Kidney u/s: Mild bilateral hydronephrosis, Over distended urinary bladder with retention. patient has Cystoscopy/TUVP with urology. Initiated a TOV, but failed, he was place back on a goldstein with increase flomax and added bethanchol tid. Goldstein was removed today and 2nd TOV was initiated. CTAB also revealed a Questionable pancreatic mass with CA 19/9 elevated. GI was consulted (Dr. Neal), recommended a contrast imaging of the pancreas (MRI or CT scan of abdomen with pancreatic protocol). MRCP ordered as per GI recommendations: Not completed by radiology. Patient will need further work up as outpatient and provided him with referrals for out patient follow up with GI. Patient is clinically stablet to be discharged to [facility]/facility for continuation of care and PT, He was discharged with prescriptions for Augmentin, flomax, urecholine and depakote and provided referrals for follow up with GI, nephrology, and urology for outpatient follow ups. Date of Discharge: 12/31/19 Minutes to complete discharge: 36 Discharge Summary Problems reviewed: Yes Reason For Visit: ACUTE KIDNEY INJURY, URINARY TRACT INFECTION, Current Active Problems AMS (altered mental status) (Chronic) Pancreatic mass (Chronic) Transaminitis (Chronic) Condition: Good - Instructions Diet, Activity, Other Instructions: YOUR VISIT: You were admitted to the hospital for infection of your urinary bladder. you were treated with [address] imaging of your abdomen, showed that you had evidence of obstruction of your urine due to enlarged prostate. Urology performed a procedure on you to relief the obstruction. CT imaging also revealed and incidental finding of a pancreatic mass and your labs showed elevated liver enzymes in blood, which could be related to the pancreatic mass. You will need further evaluation of this mass as outpatient with an MRI scan. During our examinations we also discovered an Right sided neck mass. You will need to follow up with ENT specialist as out patient to evaluate the neck mass. MEDICATIONS: Please START taking Augmentin 500mg twice a day for 4 more days. Please start taking flomax 0.8 mg daily please start taking urecholine 25 mg three times a day please take depakote 125 mg twice a day please do not take your hydrochlorathiazide Continue to take all other home medications as prescribed FOLLOW UPS: Please follow up with your GI, Dr. Neal, within 1 week for evaluation of your Pancreatic mass Please follow up with your gear shaper, Dr. Egan, within 1 week for follow up with your kidney function and labs Please visit your primary care provider within 2 weeks to follow up with your labwork and hospital visit. please follow up with Dr. Camila Bradford , your urologist on monday, 01/05 at 12pm The office phone number is [phone] ADDITIONAL INSTRUCTIONS: You are being discharged home with visiting nurse. You are to keep in your goldstein. Please return to the Emergency department if you are experiencing worsening or concerning symptoms. Referrals: Serafin Alicea MD [Staff Physician] - Hamilton Neal DO [Staff Physician] - ON STAFF,NOT [Primary Care Provider] - 1 Week Ivania Egan MD [Staff Physician] - 2 Weeks Camila Bradford MD [Staff Physician] - 01/06/20 12:00 pm Pilo Reyna MD [Staff Physician] - (neck mass) Disposition: [facility]/HOME HEALTH CARE - Home Medications Comprehensive Discharge Medication List: Ambulatory Orders Allopurinol [Zyloprim -] 100 mg PO DAILY 08/14/18 Amlodipine Besylate 10 mg PO DAILY 08/14/18 Amox-Tr/K Cl [Augmentin 500-125mg Tablet -] 1 tab PO BID@0800,1730 #9 tablet 0 12/31/19 Bethanechol Chloride [Bethanechol Chloride -] 25 mg PO TID #90 tablet 12/31/19 Divalproex Sprinkle [Depakote Sprinkle -] 125 mg PO BID #60 cap.sprink 12/31/19 Tamsulosin HCl [Flomax -] 0.8 mg PO DAILY@0830 #60 cap.er.24h 12/31/19 This patient is new to me today: No Emergency Visit: Yes ED Registration Date: 12/16/19 Care time: The patient presented to the Emergency Department on the above date and was hospitalized for further evaluation of their emergent condition. Critical Care patient: No - Discharge Referral Referred to [facility] No ATTENDING PHYSICIAN STATEMENT I saw and evaluated the patient. I reviewed the resident's note and discussed the case with the resident. I agree with the resident's findings and plan as documented. SUBJECTIVE: OBJECTIVE: ASSESSMENT AND PLAN:
--- NOTE | 2020-01-01 06:02 | PN.GI ---
GI Progress Note - Objective Vital Signs: Vital Signs Temperature 97.9 F 12/31/19 16:58 Pulse Rate 99 H 12/31/19 16:58 Respiratory Rate 20 12/31/19 16:58 Blood Pressure 128/50 L 12/31/19 16:58 O2 Sat by Pulse Oximetry (%) 99 12/31/19 13:54 Labs: CBC, BMP 12/31/19 07:34 12/31/19 07:34 Problem List - Problems (1) KARLO (acute kidney injury) Code(s): N17.9 - ACUTE KIDNEY FAILURE, UNSPECIFIED (2) AMS (altered mental status) Code(s): R41.82 - ALTERED MENTAL STATUS, UNSPECIFIED Qualifiers: Altered mental status type: disorientation Qualified Code(s): R41.0 - Disorientation, unspecified (3) Pancreatic mass Code(s): K86.89 - OTHER SPECIFIED DISEASES OF PANCREAS (4) Transaminitis Code(s): R74.0 - NONSPEC ELEV OF LEVELS OF TRANSAMNS & LACTIC ACID DEHYDRGNSE
[2020-01-01 07:07] LABS: IGG QN IMMUNOGLOBULIN 1646 mg/dL (603-1613); IGG SUBCLASS 1 699 mg/dL (248-810); IGG SUBCLASS 2 667 mg/dL (130-555); IGG SUBCLASS 3 54 mg/dL (15-102)
== END 2019-12-31 18:00 | disposition home health service (06) | DRG 665 ==
LOC: JER 21:47 → JERBED 12-16 03:34 → J8W 12-16 10:55
PROVIDERS: ADMIT Internal Medicine
PROC: 0V508ZZ Destruction of Prostate, Via Natural or Artificial Opening Endoscopic (ICD-10-PCS; principal; 2019-12-23 13:00)
DX: N17.9 Acute kidney failure, unspecified (principal); G93.41 Metabolic encephalopathy; E46 Unspecified protein-calorie malnutrition; E87.0 Hyperosmolality and hypernatremia; N39.0 Urinary tract infection, site not specified; N40.1 Benign prostatic hyperplasia with lower urinary tract symptoms; N13.30 Unspecified hydronephrosis; I10 Essential (primary) hypertension; E86.0 Dehydration; R41.0 Disorientation, unspecified; M10.9 Gout, unspecified; E88.09 Other disorders of plasma-protein metabolism, not elsewhere classified; R63.0 Anorexia; K86.89 Other specified diseases of pancreas; R74.0 Nonspecific elevation of levels of transaminase and lactic acid dehydrogenase [LDH]; N13.9 Obstructive and reflux uropathy, unspecified; E87.6 Hypokalemia; E83.42 Hypomagnesemia; E83.39 Other disorders of phosphorus metabolism; R22.1 Localized swelling, mass and lump, neck; R33.8 Other retention of urine; B96.1 Klebsiella pneumoniae [K. pneumoniae] as the cause of diseases classified elsewhere; F03.90 Unspecified dementia, unspecified severity, without behavioral disturbance, psychotic disturbance, mood disturbance, and anxiety
CPT/HCPCS: 36415; 70450-TC; 70490-TC; 71045-TC-FY; 71046-TC-FY; 74176-TC; 76775-TC; 76856-TC; 80048; 80053; 80074; 81003; 82105; 82378; 82550; 82553; 82565; 82607; 82746; 82784; 82787; 83036; 83690; 83735; 83883; 83930; 83935; 84100; 84153; 84300; 84443; 84484; 84550; 85025; 85027; 86301; 86304; 87040; 87077; 87086; 87186; 88305-TC; 93005; 93010; 93880-TC; 94760; 97116-GP; 97161-GP; 99285-25; J1644; U0003

== ENCOUNTER 2023-10-16 23:25 | Emergency (ER) | payer OTHER, BC ==
[2023-10-16 23:34] VITALS: TEMP 98.1; BMI 21.1
[2023-10-17 00:39] LABS: BASO % 0.7 % (0-2.0); EOS % 1.3 % (0-4.5); HEMATOCRIT 40.8 % (35.4-49); HEMOGLOBIN 13.5 GM/dL (11.7-16.9); LYMPH % 18.5 % (8-40); MCH 32.5 pg (25.7-33.7); MCHC 33.2 g/dl (32.0-35.9); MEAN CELL VOLUME 97.7 fl (80-96); MEAN PLT VOLUME 7.7 fl (7.5-11.1); MONO % 8.4 % (3.8-10.2); NEUT % 71.1 % (42.8-82.8); PLATELET COUNT 188 10^3/uL (134-434); RBC 4.17 M/mm3 (4.00-5.60); RDW 14.1 % (11.9-15.9); WHITE BLOOD COUNT 6.7 K/mm3 (4.0-10.0)
[2023-10-17 00:46] LABS: INR 0.95 (0.83-1.09); PROTHROMBIN TIME (PATIENT) 10.8 SEC (9.7-13.0)
[2023-10-17 00:49] LABS: ACTIVATED PTT 32.5 SECONDS (25.2-36.5)
[2023-10-17 00:52] LABS: EPI CELLS 3 /uL (0-25.1); HYALINE CASTS 0 /uL (0-3.1); PH,URINE 7.5 (5.0-8.0); URINE APPEARANCE CLEAR; URINE BACTERIA >9,000 /uL (0-1359); URINE BILIRUBIN NEGATIVE (NEGATIVE); URINE COLOR YELLOW; URINE GLUCOSE (UA) NEGATIVE (NEGATIVE); URINE KETONE NEGATIVE (NEGATIVE); URINE LEUK ESTERASE TRACE (NEGATIVE); URINE NITRITE NEGATIVE (NEGATIVE); URINE PROTEIN 1+ (NEGATIVE); URINE RBC 7 /uL (0-23.9); URINE UROBILINOGEN 0.2 mg/dL (0.2-1.0); URINE WBC 44 /uL (0-25.8)
[2023-10-17 00:58] LABS: POTASSIUM 4.2 mmol/L (3.5-5.1)
[2023-10-17 00:59] LABS: CALCIUM 9.1 mg/dL (8.5-10.1)
[2023-10-17 01:00] LABS: ALBUMIN 3.8 g/dl (3.4-5.0); BLOOD UREA NITROGEN 13.1 mg/dL (7-18)
[2023-10-17 01:03] LABS: CREATININE 1.5 mg/dL (0.55-1.3)
[2023-10-17 01:05] LABS: BILIRUBIN,TOTAL 0.8 mg/dL (0.2-1); TOT PROT 7.3 g/dl (6.4-8.2)
[2023-10-17] MEDS ORDERED: FAMOTIDINE 20 MG/50 ML IVPB 20 MG/50 ML MG IVPB ONE (01:10)
[2023-10-17] MEDS: FAMOTIDINE 20 MG/50 ML IVPB 20 MG/50 ML MG IVPB ONE (01:14)
[2023-10-17] MEDS ORDERED: SULFAMETHOXAZOLE/TRIMETHOPRIM 800MG/160MG D.S. TABLET ONE (01:40)
[2023-10-17 01:46] VITALS: BP 116/71; PULSE 58; RESP 16
[2023-10-17] MEDS: SULFAMETHOXAZOLE/TRIMETHOPRIM 800MG/160MG D.S. TABLET PO ONE (01:46)
== END 2023-10-17 01:57 | disposition home or self-care (01) ==
LOC: JER 23:25
PROC: 3E033GC Introduction of Other Therapeutic Substance into Peripheral Vein, Percutaneous Approach (ICD-10-PCS; principal; 2023-10-16)
DX: N39.0 Urinary tract infection, site not specified (principal); R79.89 Other specified abnormal findings of blood chemistry; R11.12 Projectile vomiting; Z20.822 Contact with and (suspected) exposure to COVID-19
CPT/HCPCS: 0241U-QW; 36415; 71045-TC-FY; 80053; 81003; 83605; 83690; 83735; 84484; 85025; 85610; 85730; 87086; 93005; 93010; 99285-25